=== PATIENT | female | born 1965 | race Caucasian/White ===

== ENCOUNTER 2018-10-20 06:30 | Day surgery (SDC) | payer BC ==
--- OUTSIDE RECORDS SUMMARY | 2018-10-20 06:33 | XMS REPORT ---
:1965 Author Organization [facility] Address [address] [place] [address] Dr. Soriano. [address] [place] [address] Care Team Providers Name Role Phone DR LIZ MCKEON Unavailable Unavailable Problems This patient has no known problems. Allergies, Adverse Reactions, Alerts This patient has no known allergies or adverse reactions. Medications This patient has no known medications. Encounters Start End Encounter Admission Attending Care Care Encounter Date/Time Date/Time Type Type Clinicians Facility Department ID 2017-02-14 2017-02-14 Outpatient [facility] [place] [id number] 04:32:00 08:45:00 LIZ Results Test Description Test Time Test Comments Text Results Atomic Results Result Comments URINE MONOCLONALFB 2017-02-14 05:49:00 Test Item Value Reference Range Comments PREG UR (test code=PGU) NEGATIVE NEGATIVE
[2018-10-20] MEDS ORDERED: Ringers Lactate 1,000 ML IV ONE (07:16)
[2018-10-20] MEDS ORDERED: PROPOFOL 200 MG/20 ML VIAL IV ONE (08:01)
[2018-10-20] MEDS ORDERED: LIDOCAINE 1% MPF 5 ML VIAL ONE (08:01)
[2018-10-20] MEDS ORDERED: PROMETHAZINE 25 MG/ML VIAL ONE (08:50)
[2018-10-20] MEDS ORDERED: MORPHINE 4 MG/ML SYR ONE (08:54)
--- NOTE | 2018-10-20 19:44 | OP ---
Date of Procedure: 10/20/2018 Surgeon: Enrike Esqueda MD Procedure Performed: Esophagogastroduodenoscopy. Indication For Procedure: Iron-deficiency anemia and gastroesophageal reflux disease. Plan For Anesthesia: Monitored anesthesia care. Complexity: Average. Technique: After obtaining informed consent from the patient, explaining risks and complications, wh ich include, but are not limited to bleeding, infection, perforation, and anesthesia complication, pa tient was placed in the left lateral position and sedation was given. From then on, the scope was ad vanced into the mouth and carefully guided up until the 3rd portion of the duodenum. After the compl etion of examination, scope and equipment were withdrawn and procedure terminated in a safe manner. Findings: 1.Esophagus: No gross lesion seen in the upper and mid esophagus. In the distal esophagus, the Z-l ine was irregular, biopsies taken. The GE junction was at around 36 cm. 2.Stomach: Mild patchy erythema seen in the body and antrum. Biopsies were taken. 3.Duodenum: The bulb, second and third portion appeared normal. Small bowel biopsies taken to rule out celiac. Complications: None. Tolerance To Anesthesia: Excellent. Postoperative Diagnosis: Gastritis. Plan: 1.Await pathology results. 2.Follow up in the GI Clinic in 2 weeks. 3.Omeprazole 40 mg once a day. US/MODL Voice ID: [id number] Report ID: [id number]
== END 2018-10-20 09:32 | disposition home or self-care (01) ==
LOC: OR 06:30
PROVIDERS: ATTEND Internal Medicine Gastroenterology
PROC: 0DB88ZX Excision of Small Intestine, Via Natural or Artificial Opening Endoscopic, Diagnostic (ICD-10-PCS; 2018-10-20)
PROC: 0DB78ZX Excision of Stomach, Pylorus, Via Natural or Artificial Opening Endoscopic, Diagnostic (ICD-10-PCS; 2018-10-20)
PROC: 0DB68ZX Excision of Stomach, Via Natural or Artificial Opening Endoscopic, Diagnostic (ICD-10-PCS; 2018-10-20)
PROC: 0DB58ZX Excision of Esophagus, Via Natural or Artificial Opening Endoscopic, Diagnostic (ICD-10-PCS; principal; 2018-10-20 08:00)
DX: K29.50 Unspecified chronic gastritis without bleeding (principal); K21.0 Gastro-esophageal reflux disease with esophagitis; K76.0 Fatty (change of) liver, not elsewhere classified; D50.9 Iron deficiency anemia, unspecified; I10 Essential (primary) hypertension; Z79.899 Other long term (current) drug therapy; E66.9 Obesity, unspecified; Z68.34 Body mass index [BMI] 34.0-34.9, adult
CPT/HCPCS: 43239; 88312; 88305; J2704; J2550

== ENCOUNTER 2019-06-10 08:59 | Day surgery (SDC) | payer BC ==
--- OUTSIDE RECORDS SUMMARY | 2019-06-10 09:02 | XMS REPORT ---
:1965 Author Organization eClinicalWorks Care Team Providers Name Role Phone Radha Best Provider Role Unavailable Allergies No Known Allergies Problems Problem Type Condition Code Onset Dates Condition Status Problem Hypothyroidism E03.9 Active Problem Cough R05 Active Problem Syncope R55 Active Problem Dysuria R30.0 Active Problem Thalassemia D56.9 Active Problem Acute cystitis with hematuria N30.01 Active Problem Acquired hypothyroidism E03.9 Active Problem Mass of left axilla R22.32 Active Problem Bradycardia R00.1 Active Problem Fever R50.9 Active Problem Abscess L02.91 Active Problem Strain of left shoulder, initial S46.912A Active encounter Problem Allergic rhinitis, seasonal J30.2 Active Problem Restless legs syndrome G25.81 Active Problem Foreign body in ear T16.9XXA Active Problem Premature ventricular contraction I49.3 Active Problem Acute tonsillitis J03.90 Active Problem Fatigue R53.83 Active Problem Ganglion cyst M67.40 Active Problem Fatty liver K76.0 Active Assessment Acquired hypothyroidism E03.9 Active Problem Contact dermatitis L25.9 Active Problem Anemia D64.9 Active Medications Medication Code Code Instructions Start End Status Dosage System Date Date Levothyroxine [facility] 37977918843 125 MCG Orally Feb 05, Active 1 tablet Sodium Once a day 2018 on an empty stomach in the morning Results No Known Results Summary Purpose eClinicalWorks Submission
--- OUTSIDE RECORDS SUMMARY | 2019-06-10 09:02 | XMS REPORT ---
[...] M67.40 Active Problem Fatty liver K76.0 Active Problem Contact dermatitis L25.9 Active Problem Anemia D64.9 Active Medications Medication Code Code Instructions Start End Status Dosage System Date Date Levothyroxine [facility] 87026584502 125 MCG Orally Active 1 tablet Sodium Once a day on an empty stomach in the morning Results No Known Results Summary Purpose eClinicalWorks Submission
--- OUTSIDE RECORDS SUMMARY | 2019-06-10 09:02 | XMS REPORT ---
:1965 Author Organization [facility] Address [address] [place] [address] Dr. Soriano [address] [place] [address] Care Team Providers Name Role Phone DR LIZ MCKEON Unavailable Unavailable Problems This patient has no known problems. Allergies, Adverse Reactions, Alerts This patient has no known allergies or adverse reactions. Medications This patient has no known medications. Encounters Start End Encounter Admission Attending Care Care Encounter Date/Time Date/Time Type Type Clinicians Facility Department ID 2017-02-14 2017-02-14 Outpatient [facility] [place] [id number] 04:32:00 08:45:00 LIZ Results Test Description Test Time Test Comments Text Results Atomic Results Result Comments URINE MONOCLONALFB 2017-02-14 05:49:00 Test Item Value Reference Range Comments PREG UR (test code=PGU) NEGATIVE NEGATIVE
--- OUTSIDE RECORDS SUMMARY | 2019-06-10 09:02 | XMS REPORT ---
:1965 Author Organization eClinicalWorks Care Team Providers Name Role Phone Radha Best Provider Role Unavailable Allergies No Known Allergies Problems Problem Type Condition Code Onset Dates Condition Status Problem Thalassemia D56.9 Active Problem Allergic rhinitis, seasonal J30.2 Active Problem Premature ventricular contraction I49.3 Active Problem Mass of left axilla R22.32 Active Problem Strain of left shoulder, initial S46.912A Active encounter Problem Blunt trauma to abdomen, initial S39.91XA Active encounter Problem Ganglion cyst M67.40 Active Problem Restless legs syndrome G25.81 Active Problem Abscess L02.91 Active Problem Contact dermatitis L25.9 Active Problem Bradycardia R00.1 Active Assessment Blunt trauma to abdomen, initial S39.91XA Active encounter Problem Anemia D64.9 Active Problem Hypothyroidism E03.9 Active Problem Fatigue R53.83 Active Problem Syncope R55 Active Problem Fatty liver K76.0 Active Problem Cough R05 Active Medications No Known Medications Results No Known Results Summary Purpose eClinicalWorks Submission
--- OUTSIDE RECORDS SUMMARY | 2019-06-10 09:02 | XMS REPORT ---
[...] Start End Status Dosage System Date Date ProAir RespiClick [facility] 05646587007 108 (90 Base) Active 2 puffs as MCG/ACT needed Inhalation every 6 hrs Benzonatate ND 48845247247 100 MG Orally Active 1 capsule Three times a as needed day Naproxen Sodium [facility] 72805695036 375 MG Oral Active not ER defined Requip ND 11561477235 0.5 MG Orally Active 1 tablet 1 Once a day to 3 hours before bedtime Claritin-D 24 [facility] 16749092734 10-240 MG Active 1 tablet Hour Orally Once a as needed day Fluticasone ND 95821743963 50 MCG/ACT August 24, Active 1 spray in Propionate Nasally Twice a 2019 each day nostril Omeprazole ND 33796556289 40 MG Orally Active 1 capsule Once a day Levothyroxine ND 60848514412 125 MCG Orally Feb 05, Active 1 tablet Sodium Once a day 2018 on an empty stomach in the morning Xyzal [facility] 89820976883 5 MG Orally Active 1 tablet Once a day in the evening Qvar [facility] 71158509144 40 MCG/ACT Active 1 puff Inhalation Twice a day Vitamin C [facility] 95492687217 1000 MG Orally Active 1 tablet Once a day Lidocaine [facility] 15172032813 5 % External Active not defined Results No Known Results Summary Purpose eClinicalWorks Submission
--- OUTSIDE RECORDS SUMMARY | 2019-06-10 09:02 | XMS REPORT ---
:1965 Author Organization eClinicalWorks Care Team Providers Name Role Phone Radha Best Provider Role Unavailable Allergies, Adverse Reactions, Alerts Substance Reaction Event Type PCN rash Drug Allergy Bactrim DS rash Drug Allergy Problems Problem Type Condition Code Onset Dates Condition Status Problem Thalassemia D56.9 Active Problem Allergic rhinitis, seasonal J30.2 Active Problem Premature ventricular contraction I49.3 Active Problem Mass of left axilla R22.32 Active Assessment Cough R05 Active Problem Strain of left shoulder, initial S46.912A Active encounter Problem Blunt trauma to abdomen, initial S39.91XA Active encounter Problem Ganglion cyst M67.40 Active Problem Restless legs syndrome G25.81 Active Problem Abscess L02.91 Active Problem Contact dermatitis L25.9 Active Problem Bradycardia R00.1 Active Assessment Hypothyroidism E03.9 Active Assessment Blunt trauma to abdomen, initial S39.91XA Active encounter Problem Anemia D64.9 Active Problem Hypothyroidism E03.9 Active Problem Fatigue R53.83 Active Problem Syncope R55 Active Problem Fatty liver K76.0 Active Problem Cough R05 Active Medications Medication Code Code Instructions Start End Status Dosage System Date Date Levothyroxine [facility] 69568411697 125 MCG Orally Feb 05, Active 1 tablet Sodium Once a day 2018 on an empty stomach in the morning Omeprazole [facility] 59194858487 40 MG Orally Active 1 capsule Once a day Vitamin C [facility] 39304754461 1000 MG Orally Active 1 tablet Once a day Benzonatate ND 37817540150 100 MG Orally Active 1 capsule Three times a as needed day ProAir RespiClick [facility] 40590766448 108 (90 Base) Active 2 puffs as MCG/ACT needed Inhalation every 6 hrs Fluticasone ND 92658927452 50 MCG/ACT August 24, Active 1 spray in Propionate Nasally Twice a 2018 each day nostril Claritin-D 24 [facility] 91016273022 10-240 MG Active 1 tablet Hour Orally Once a as needed day Results Name Result Date Reference Range Unit Abnormality Flag Chest Pa And Lat (2 Views) Summary Purpose eClinicalWorks Submission
--- OUTSIDE RECORDS SUMMARY | 2019-06-10 09:02 | XMS REPORT ---
[...] L25.9 Active Problem Anemia D64.9 Active Medications No Known Medications Results No Known Results Summary Purpose eClinicalWorks Submission
[2019-06-10 09:32] LABS: Absolute Lymphocytes (CBC) 2.8 K/uL (0.7-4.9); Basophils % 0.9 % (0-1.3); Hematocrit 38.6 % (36.0-45.0); Lymphocytes % 43.3 % (15.3-44.8); MPV 11.3 fL (7.6-11.3); RBC Red Blood Cell Count 6.14 M/uL (3.86-4.86)
[2019-06-10] MEDS ORDERED: CIPROFLOXACIN 400mg IV 400 MG/200 ML BAG IV ONE (09:39)
[2019-06-10] MEDS ORDERED: Ringers Lactate 1,000 ML IV ONE (09:39)
[2019-06-10 09:57] LABS: Potassium 4.6 mmol/L (3.5-5.1)
[2019-06-10] MEDS ORDERED: propofoL 200 MG/20 ML VIAL IV ONE (10:11)
[2019-06-10] MEDS ORDERED: MIDAZOLAM HCL 2 MG/2 ML INJ ONE (10:12)
[2019-06-10] MEDS ORDERED: FENTANYL CITR 100 MCG/2 ML ONE (10:12)
[2019-06-10] MEDS ORDERED: LIDOCAINE 2% MPF 5 ML VIAL ONE (10:13)
[2019-06-10] MEDS ORDERED: ONDANSETRON 4 MG/2 ML VIAL ONE ×2 (10:17→12:36)
[2019-06-10 11:44] LABS: Anisocytosis 2+; Blood Morphology Comment NOTED (NOT SEEN); Hypochromasia 2+; Platelet Estimate ADEQ; Poikilocytosis 1+; Urine White Blood Cell Casts OK
[2019-06-10] MEDS ORDERED: MEPERIDINE HCL 25 MG/0.5 ML ONE (12:33)
--- NOTE | 2019-06-10 12:43 | P.BOP ---
Preoperative diagnosis: axillary abscess Postoperative diagnosis: same Primary procedure: Incision and drainage of complex left axillary abscess 4x4x3 cm Estimated blood loss: <10cc Specimen: pus Findings: as above Anesthesia: General Complications: None Drain(s): Other (wet to dry NS) Transferred to: Recovery Room Condition: Good
[2019-06-10] MEDS ORDERED: CODEINE 30MG/APAP 300MG TAB PO ONE (13:00)
[2019-06-10] MEDS ORDERED: CODEINE 30MG/APAP 300MG TAB ONE (13:06)
[2019-06-10 13:50] VITALS: TEMP 97.6
[2019-06-10 13:51] VITALS: BP 102/73; O2SAT 94
--- NOTE | 2019-06-10 20:50 | OP ---
Date of Procedure: 06/10/2019 Surgeon: Jason Hebert MD Preoperative Diagnosis: Axillary abscess, cellulitis, complex, tender. Postoperative Diagnosis: Axillary abscess, cellulitis, complex, tender. Procedure: Incision and drainage of complex left axillary abscess 4 x 4 x 3 cm. Estimated Blood Loss: Less than 10 mL. Specimen: Pus and necrotic tissue. Findings: Patient has complex abscess in the left axillary area. Even on antibiotics, recently gett ing worse, erythema, tender, fluctuance present. Patient is so tender, cannot do it under local anes thetic and is deep, so she was explained the need for incision and drainage for complex axillary absc ess with benefits, alternatives, and risks including but not limited to infection, bleeding, damage t o adjacent structures, anesthesia complications, CT, even . She also understands this may not r elieve symptoms. She might need more than 1 surgical intervention. She understood and signed a cons ent. She understands the need for wet-to-dry dressing after that. We had a national emergent situat ion and she has the option of home health agency. She is going to try to find a family member to min imize the amount of contact with any other personnel. She understands she is going to be on the vent ilator. There is a risk of coronavirus going around, but in her case, it is tender too much and is c onsidered an emergency, so she understands the risks. She signed a consent. Description Of Procedure: Patient was brought to the operating room, placed in supine position. Ane sthesia was done without complication. The left axillary area was prepped and draped in sterile [facility] ion. A time-out was called. Local anesthesia was applied. Some necrotic tissue present and had to be removed. This allowed us to go into a deeper abscess. That had multiple loculations present. Fr ank pus was obtained and cultured. All loculations were explored and opened. Local anesthesia was a pplied. Irrigation was done. Hemostasis was obtained and the area was packed with wet-to-dry dressi ng. Patient tolerated the procedure well. Patient was sent to Recovery in stable condition. KANDACE/MODL Voice ID: [id number] Report ID: [id number]
--- NOTE | 2019-06-10 20:53 | DS ---
Date of Discharge: 06/10/2019 Diagnosis: Left complex axillary abscess. Procedure: Incision and drainage of left complex axillary abscess. Disposition: Home. Activity: As tolerated. No heavy lifting. Discharge Instructions: Follow up in my office in 1 week. Call for appointment at [phone]. Keep t he area dry until tomorrow. Then, she will pack the area with wet-to-dry dressing and normal saline. She was instructed in my office in details how to do so. We are going to provide Tylenol No. 3 for pain and normal saline. She is already on antibiotics, clindamycin, provided by the primary doctor. She understood to follow up in a week in my office. We understand it is a national emergency and m any things can change, but she was advised to still call the office in a week for guidelines on how w e are going to follow her up. POPPY Voice ID: [id number] Report ID: [id number]
== END 2019-06-10 13:55 | disposition home or self-care (01) ==
LOC: OR 08:59
PROVIDERS: ATTEND Surgery
PROC: 0J960ZZ Drainage of Chest Subcutaneous Tissue and Fascia, Open Approach (ICD-10-PCS; principal; 2019-06-10 10:15)
DX: L72.0 Epidermal cyst (principal); L03.319 Cellulitis of trunk, unspecified; I96 Gangrene, not elsewhere classified; E07.9 Disorder of thyroid, unspecified; Z79.899 Other long term (current) drug therapy
CPT/HCPCS: 87070; 85025; 80048; 36415; 87205 ×2; 88304; 87075; 10061; J2704; J2250; J3010; J2175; J7120; J2405 ×2; J0744; 88305

== ENCOUNTER 2019-07-01 05:05 | Emergency (ER) | payer BC ==
--- OUTSIDE RECORDS SUMMARY | 2019-07-01 05:08 | XMS REPORT ---
:1965 Author Organization eClinicalWorks Care Team Providers Name Role Phone Radha Best Provider Role Unavailable Allergies No Known Allergies Problems Problem Type Condition Code Onset Dates Condition Statu s Problem Hypothyroidism E03.9 Active Problem Cough R05 Active Problem Syncope R55 Active Problem Dysuria R30.0 Active Problem Thalassemia D56.9 Active Problem Acute cystitis with hematuria N30.01 Active Problem Acquired hypothyroidism E03.9 Acti ve Problem Mass of left axilla R22.32 Active Problem Bradycardia R00.1 Active Problem Fever R50.9 Active Problem Abscess L02.91 Active Problem Strain of left shoulder, initial S46.912A Active encounter Problem Allergic rhinitis, seasonal J30.2 Active Problem Restless legs syndrome G25.81 Activ e Problem Foreign body in ear T16.9XXA Active Problem Premature ventricular contraction I49.3 Active Problem Acute tonsillitis J03.90 Active Problem Fatigue R53.83 Active Problem Ganglion cyst M67.40 Active Problem Fatty liver K76.0 Active Assessment Acquired hypothyroidism E03.9 Acti ve Problem Contact dermatitis L25.9 Active Problem Anemia D64.9 Active Medications Medication Code Code Instructions Start End Status Dosage System Date Date Levothyroxine [facility] 88984946463 125 MCG Orally Feb 05, Active 1 tablet Sodium Once a day 2018 on an empty stomach in the morning Results No Known Results Summary Purpose eClinicalWorks Submission
--- OUTSIDE RECORDS SUMMARY | 2019-07-01 05:08 | XMS REPORT ---
[...] End Status Dosage System Date Date Levothyroxine [facility] 94643650049 125 MCG Orally Active 1 tablet Sodium Once a day on an empty stomach in the morning Results No Known Results Summary Purpose eClinicalWorks Submission
--- OUTSIDE RECORDS SUMMARY | 2019-07-01 05:08 | XMS REPORT ---
:1965 Author Organization [facility] Address [address] [place] [address] Dr. Soriano. [address] [place] [address] Care Team Providers Name Role Phone DR LINDA Unavailable Unavailable Problems This patient has no known problems. Allergies, Adverse Reactions, Alerts This patient has no known allergies or adverse reactions. Medications This patient has no known medications. Encounters Start End Encounter Admission Attending Care Care Encounter Date/Time Date/Time Type Type Clinicians Facility Department ID 2017-02-14 2017-02-14 [address] [facility] [facility] [place] [id number] 04:32:00 08:45:00 LIZ Results Test Description Test Time Test Comments Text Results Atomic Results Result Comments URINE MONOCLONALFB 2017-02-14 05:49:00 Test Item Value Reference Range Comments PREG UR (test code = PGU) NEGATIVE NEGATIVE
--- OUTSIDE RECORDS SUMMARY | 2019-07-01 05:08 | XMS REPORT ---
[...] Status Dosage System Date Date ProAir RespiClick [facility] 64229006333 108 (90 Base) Acti ve 2 puffs as MCG/ACT needed Inhalation every 6 hrs Benzonatate [facility] 15100576681 100 MG Orally Active 1 capsule Three times a as needed day Naproxen Sodium [facility] 74545859223 375 MG Oral Active not ER defined Requip [facility] 80782317028 0.5 MG Orally Active 1 tabl et 1 Once a day to 3 hours before bedtime Claritin-D 24 [facility] 24281983523 10-240 MG Active 1 ta blet Hour Orally Once a as needed day Fluticasone ND 90783886642 50 MCG/ACT August 24, Active 1 sp ray in Propionate Nasally Twice a 2019 each day nostril Omeprazole [facility] 35313192736 40 MG Orally Active 1 ca psule Once a day Levothyroxine NDC 17609963965 125 MCG Orally Feb 05, Active 1 tablet Sodium Once a day 2018 on an empty stomach in the morning Xyzal [facility] 68867081075 5 MG Orally Active 1 tablet Once a day in the evening Qvar [facility] 21109704410 40 MCG/ACT Active 1 puff Inhalation Twice a day Vitamin C [facility] 48262813325 1000 MG Orally Active 1 t ablet Once a day Lidocaine [facility] 13183542539 5 % External Active not defined Results No Known Results Summary Purpose eClinicalWorks Submission
--- OUTSIDE RECORDS SUMMARY | 2019-07-01 05:09 | XMS REPORT ---
:1965 Author Organization eClinicalWorks Care Team Providers Name Role Phone Radha Best Provider Role Unavailable Allergies, Adverse Reactions, Alerts Substance Reaction Event Type PCN rash Drug Allergy Bactrim DS rash Drug Allergy Problems Problem Type Condition Code Onset Dates Condition Statu s Problem Allergic rhinitis, seasonal J30.2 Active Problem Ganglion cyst M67.40 Active Problem Restless legs syndrome G25.81 Activ e Problem Sprain of low back, initial S33.5XXA Active encounter Assessment Sprain of low back, initial S33.5XXA Active encounter Problem Blunt trauma to abdomen, initial S39.91XA Active encounter Assessment Abscess of axilla, left L02.412 Acti ve Problem Abscess of axilla, left L02.412 Acti ve Problem Abscess L02.91 Active Problem Contact dermatitis L25.9 Active Problem Mass of left axilla R22.32 Active Problem Strain of left shoulder, initial S46.912A Active encounter Problem Bradycardia R00.1 Active Problem Fatigue R53.83 Active Problem Thalassemia D56.9 Active Problem Hypothyroidism E03.9 Active Problem Syncope R55 Active Problem Fatty liver K76.0 Active Problem Cough R05 Active Problem Anemia D64.9 Active Problem Premature ventricular contraction I49.3 Active Medications Medication Code Code Instructions Start End Date Status Dosage System Date ProAir [facility] 71843246223 108 (90 Base) Active 2 puff s as RespiClick MCG/ACT needed Inhalation every 6 hrs Fluticasone ND 77322101434 50 MCG/ACT August 24, Active 1 sp ray in Propionate Nasally Twice a 2019 each day nostril Claritin-D 24 ND 16516157120 10-240 MG Active 1 ta blet Hour Orally Once a as needed day Methocarbamol ND 65775220054 750 MG Orally June Active 1 tablet every 6 hrs 2019 Cipro ND 84340034271 500 MG Orally June Active 1 tabl et every 12 hrs [address] [facility] 36920687436 40 MG Orally Active 1 ca psule Once a day Levothyroxine [facility] 32263994767 125 MCG Orally Feb 05, Active 1 tablet Sodium Once a day 2018 on an empty stomach in the morning Vitamin C [facility] 00204076790 1000 MG Orally Active 1 t ablet Once a day PredniSONE [facility] 81817360052 10 MG Orally June Active 1 ta blet Once a day 2019 Results No Known Results Summary Purpose eClinicalWorks Submission
--- OUTSIDE RECORDS SUMMARY | 2019-07-01 05:09 | XMS REPORT ---
:1965 Author Organization eClinicalWorks Care Team Providers Name Role Phone Radha Best Provider Role Unavailable Allergies, Adverse Reactions, Alerts Substance Reaction Event Type PCN rash Drug Allergy Bactrim DS rash Drug Allergy Problems Problem Type Condition Code Onset Dates Condition Statu s Problem Thalassemia D56.9 Active Problem Allergic rhinitis, seasonal J30.2 Active Problem Premature ventricular contraction I49.3 Active Problem Mass of left axilla R22.32 Active Assessment Cough R05 Active Problem Strain of left shoulder, initial S46.912A Active encounter Problem Blunt trauma to abdomen, initial S39.91XA Active encounter Problem Ganglion cyst M67.40 Active Problem Restless legs syndrome G25.81 Activ e Problem Abscess L02.91 Active Problem Contact dermatitis [...] End Status Dosage System Date Date Levothyroxine [facility] 76623275293 125 MCG Orally Feb 05, Active 1 tablet Sodium Once a day 2018 on an empty stomach in the morning Omeprazole ND 47609132734 40 MG Orally Active 1 ca psule Once a day Vitamin C ND 98615012149 1000 MG Orally Active 1 t ablet Once a day Benzonatate ND 02130057872 100 MG Orally Active 1 capsule Three times a as needed day ProAir RespiClick [facility] 22328820718 108 (90 Base) Acti ve 2 puffs as MCG/ACT needed Inhalation every 6 hrs Fluticasone ND 67634810773 50 MCG/ACT August 24, Active 1 sp ray in Propionate Nasally Twice a 2018 each day nostril Claritin-D 24 ND 31709756067 10-240 MG Active 1 ta blet Hour Orally Once a as needed day Results Name Result Date Reference Range Unit Abnormali ty Flag Chest Pa And Lat (2 Views) Summary Purpose eClinicalWorks Submission
[2019-07-01 06:15] LABS: Urine Blood TRACE (NEG); Urine Glucose NEGATIVE (NEG); Urine Protein NEGATIVE (NEG); Urine Specific Gravity 1.015 (1.005-1.030); Urine pH 5.5 (5.0-7.0)
[2019-07-01] MEDS ORDERED: KETOROLAC 30 MG/ML INJ ONE (06:21)
[2019-07-01] MEDS ORDERED: MORPHINE 4 MG/ML SYR ONE (06:21)
[2019-07-01] MEDS ORDERED: NA CHLORIDE 0.9% 1,000 ML ONE (06:21)
[2019-07-01] MEDS ORDERED: ONDANSETRON 4 MG/2 ML VIAL ONE (06:21)
[2019-07-01 06:35] LABS: Absolute Lymphocytes (CBC) 3.9 K/uL (0.7-4.9); Basophils % 0.6 % (0-1.3); Hematocrit 38.2 % (36.0-45.0); Lymphocytes % 40.3 % (15.3-44.8); MPV 11.5 fL (7.6-11.3); RBC Red Blood Cell Count 6.08 M/uL (3.86-4.86)
[2019-07-01 06:51] LABS: ALT/SGPT 89 U/L (12-78); AST/SGOT 54 U/L (15-37); Albumin 3.6 g/dL (3.4-5.0); Alkaline Phosphatase 121 U/L (45-117); BUN Blood Urea Nitrogen 13 mg/dL (7-18); Bicarbonate 23 mmol/L (21-32); Bilirubin Total 0.5 mg/dL (0.2-1.0); Glucose Level 91 mg/dL (74-106); Lipase 101 U/L (73-393); Potassium 3.9 mmol/L (3.5-5.1); Sodium Level 143 mmol/L (136-145)
--- NOTE | 2019-07-01 07:21 | RAD REPORT ---
EXAM DESCRIPTION: CTAbdomen Pelvis W Contrast - 07/01/2019 7:03 am CLINICAL HISTORY: Abdominal pain. ABD PAIN COMPARISON: No comparisons TECHNIQUE: Biphasic CT imaging of the abdomen and pelvis was performed with 100 ml non-ionic IV cont rast. All CT scans are performed using dose optimization technique as appropriate and may include automated exposure control or mA/KV adjustment according to patient size. FINDINGS: The lung bases are clear.Small hiatal hernia. Mild fatty liver. Cholecystectomy clips noted. The spleen, pancreas, adrenal glands and kidneys show no acute process. Moderate fat containing umbilical hernia. No bowel obstruction, free air, free fluid or abscess. Mild sigmoid diverticulosis coli without diver ticulitis. The appendix is normal. No evidence of significant lymphadenopathy. No suspicious bony findings. IMPRESSION: No acute intra-abdominal or pelvic finding. Fatty liver.
--- NOTE | 2019-07-01 07:43 | ER ---
Nurse's Notes [facility] Name: Krysten Love Age: 54 yrs Sex: Female : 1965 Arrival Date: 07/01/2019 Time: 05:09 Bed 15 Private MD: Diagnosis: Low back pain;Lower abdominal pain, unspecified Presentation: 06/30 05:15 Chief complaint: Patient states: I have been having lower back pain for the past 2 jb4 weeks now it is radiating to my right lower stomach. Coronavirus screen: Proceed with normal triage. Ebola Screen: No symptoms or risks identified at this time. Initial Sepsis Screen: Does the patient meet any 2 criteria? No. Patient's initial sepsis screen is negative. Does the patient have a suspected source of infection? No. Patient's initial sepsis screen is negative. Risk Assessment: Do you want to hurt yourself or someone else? Patient reports no desire to harm self or others. Onset of symptoms was June 17, 2019. Transition of care: patient was not received from another setting of care. 05:15 Method Of Arrival: Wheelchair jb4 05:15 Acuity: SAMIR 3 jb4 Historical: - Allergies: 05:15 Penicillins; jb4 - Home Meds: 05:15 prednisone 10 mg Oral tab once daily [Active]; ibuprofen 800 mg Oral tab 1 tab 3 times jb4 per day [Active]; methocarbamol 750 mg Oral tab 1 tab every 6 hours [Active]; Cipro 500 mg Oral tab 1 tab every 12 hours [Active]; Tylenol-Codeine #3 300-30 mg oral tab 1 tab every 4 hours [Active]; - PMHx: 05:15 None; jb4 - PSHx: 05:15 right foot; Cholecystectomy; Tonsillectomy; jb4 - Immunization history:: Adult Immunizations up to date. - Social history:: Smoking status: Patient denies any tobacco usage or history of. Patient/guardian denies using alcohol, street drugs. - Family history:: not pertinent. Screenin:15 Abuse screen: Denies threats or abuse. Nutritional screening: No deficits noted. jb4 Tuberculosis screening: No symptoms or risk factors identified. Fall Risk None identified. Assessment: 05:15 General: Appears in no apparent distress. uncomfortable, Behavior is calm, cooperative, jb4 appropriate for age. Pain: Complains of pain in right low back Pain radiates to right lower quadrant Pain currently is 10 out of 10 on a pain scale. Quality of pain is described as sharp, Aggravated by repositioning. Neuro: Level of Consciousness is awake, alert, obeys commands, Oriented to person, place, time, situation. Cardiovascular: Patient's skin is warm and dry. Respiratory: Airway is patent Respiratory effort is even, unlabored, Respiratory pattern is regular, symmetrical. GI: Reports lower abdominal pain. : No signs and/or symptoms were reported regarding the genitourinary system. EENT: No signs and/or symptoms were reported regarding the EENT system. Derm: Skin is intact, Skin is pink, warm \T\ dry. Musculoskeletal: Circulation, motion, and sensation intact. Range of motion: intact in all extremities. 06:42 Reassessment: Patient appears in no apparent distress at this time. Patient and/or jb4 family updated on plan of care and expected duration. Pain level reassessed. Patient is alert, oriented x 3, equal unlabored respirations, skin warm/dry/pink. 08:05 Reassessment: Patient appears in no apparent distress at this time. Patient and/or ph family updated on plan of care and expected duration. Pain level reassessed. Patient is alert, oriented x 3, equal unlabored respirations, skin warm/dry/pink. D/C papers signed by pt, awaiting ride home from daughter. Vital Signs: 05:15 BP 145 / 81; Pulse 72; Resp 18; Temp 98.7(O); Pulse Ox 98% on R/A; Weight 88.9 kg (R); jb4 Height 5 ft. 3 in. (160.02 cm) (R); Pain 10/10; 06:40 BP 156 / 86; Pulse 76; Resp 16; Pulse Ox 96% on R/A; jb4 08:06 BP 147 / 86; Pulse 74; Resp 18; Temp 98.0; Pulse Ox 99% on R/A; ph 05:15 Body Mass Index 34.72 (88.90 kg, 160.02 cm) jb4 ED Course: 05:09 Patient arrived in ED. cl3 05:15 Arm band placed on right wrist. jb4 05:15 Patient has correct armband on for positive identification. Bed in low position. Call jb4 light in reach. Side rails up X 1. Pulse ox on. NIBP on. 05:22 Evan Wood MD is Attending Physician. rayray 05:24 Ugo Andre, YADIRA is Primary Nurse. jb4 05:27 Triage completed. jb4 06:00 Urine collected: clean catch specimen, clear. 06:31 Missed attempt(s): 20 gauge in left antecubital area. Inserted saline lock: 20 gauge in lp1 left antecubital area, using aseptic technique. Blood collected. 07:03 CT Abd/Pelvis - IV Contrast Only In Process Unspecified. EDMS 07:08 Zhang Avila PA is PHCP. [facility] 07:58 No provider procedures requiring assistance completed. IV discontinued, intact, ph bleeding controlled, No redness/swelling at site. Pressure dressing applied. Administered Medications: 06:33 Drug: Zofran (Ondansetron) 4 mg Route: IVP; Site: left antecubital; [facility] 08:00 Follow up: Response: No adverse reaction ph 06:35 Drug: NS 0.9% 1000 ml Route: IV; Rate: 1 bolus; Site: left antecubital; 4 07:59 Follow up: Response: No adverse reaction; IV Status: Completed infusion; IV Intake: ph 500ml 06:36 Drug: TORadol 30 mg Route: IVP; Site: left antecubital; 4 07:59 Follow up: Response: No adverse reaction ph 06:37 Drug: morphine 4 mg {Note: Rass score 0.} Route: IVP; Site: left antecubital; [facility] 08:00 Follow up: Response: No adverse reaction ph 08:14 Drug: Valium 5 mg Route: IM; Site: left deltoid; ph 08:15 Follow up: Response: No adverse reaction ph Intake: 07:59 IV: 500ml; Total: 500ml. ph Outcome: 07:42 Discharge ordered by . [facility] 07:58 Discharged to home ambulatory. ph 07:58 Condition: good 07:58 Discharge instructions given to patient. 08:15 Patient left the ED. ph Signatures: Dispatcher [employer] EDMS Jose Guadalupe Ramirez, Evan Sinclair RN, MD MD cha Mickail, Joel, PA PA [facility] Collette Dontao RN RN lp1 Nelly Sepulveda RN RN Ugo Andre YADIRA RN jb4 Sil Brody cl3
--- NOTE | 2019-07-01 07:43 | EDPHYS ---
Physician Documentation [facility] Name: Krysten Love Age: 54 yrs Sex: Female : 1965 Arrival Date: 07/01/2019 Time: 05:09 Bed 15 Private MD: Evan Spence HPI: 06/30 05:41 This 54 yrs old Female presents to ER via Wheelchair with complaints of rayray Abdominal Pain. 05:41 The patient presents with abdominal pain in the upper abdomen, in the lower abdomen, rayray abdominal distention in the right upper quadrant, in the right lower quadrant. Onset: The symptoms/episode began/occurred 2 day(s) ago. The patient complains of pain in the right mid back and right low back. The pain radiates to the right mid back and right low back. Onset: The symptoms/episode began/occurred 2 day(s) ago. Modifying factors: The symptoms are alleviated by remaining still, the symptoms are aggravated by nothing. Associated signs and symptoms: The patient has no apparent associated signs or symptoms. The symptoms radiate to posterior aspect of right lateral abdomen, anterior aspect of right lateral abdomen, right upper quadrant and right lower quadrant. Associated signs and symptoms: none. Historical: - Allergies: 05:15 Penicillins; jb4 - Home Meds: 05:15 prednisone 10 mg Oral tab once daily [Active]; ibuprofen 800 mg Oral tab 1 tab 3 times jb4 per day [Active]; methocarbamol 750 mg Oral tab 1 tab every 6 hours [Active]; Cipro 500 mg Oral tab 1 tab every 12 hours [Active]; Tylenol-Codeine #3 300-30 mg oral tab 1 tab every 4 hours [Active]; - PMHx: 05:15 None; jb4 - PSHx: 05:15 right foot; Cholecystectomy; Tonsillectomy; jb4 - Immunization history:: Adult Immunizations up to date. - Social history:: Smoking status: Patient denies any tobacco usage or history of. Patient/guardian denies using alcohol, street drugs. - Family history:: not pertinent. ROS: 05:41 Constitutional: Negative for fever, chills, and weight loss, Eyes: Negative for injury, rayray pain, redness, and discharge, ENT: Negative for injury, pain, and discharge, Neck: Negative for injury, pain, and swelling, Cardiovascular: Negative for chest pain, palpitations, and edema, Respiratory: Negative for shortness of breath, cough, wheezing, and pleuritic chest pain, Back: Negative for injury and pain, : Negative for injury, bleeding, discharge, and swelling, MS/Extremity: Negative for injury and deformity, Skin: Negative for injury, rash, and discoloration, Neuro: Negative for headache, weakness, numbness, tingling, and seizure, Psych: Negative for depression, anxiety, suicide ideation, homicidal ideation, and hallucinations, Allergy/Immunology: Negative for hives, rash, and allergies, Endocrine: Negative for neck swelling, polydipsia, polyuria, polyphagia, and marked weight changes, Hematologic/Lymphatic: Negative for swollen nodes, abnormal bleeding, and unusual bruising. 05:41 Abdomen/GI: Positive for abdominal pain, abdominal distension, of the posterior aspect of right lateral abdomen, anterior aspect of right lateral abdomen, right upper quadrant and right lower quadrant. Exam: 05:41 Constitutional: This is a well developed, well nourished patient who is awake, alert, rayray and in no acute distress. Head/Face: Normocephalic, atraumatic. Eyes: Pupils equal round and reactive to light, extra-ocular motions intact. Lids and lashes normal. Conjunctiva and sclera are non-icteric and not injected. Cornea within normal limits. Periorbital areas with no swelling, redness, or edema. ENT: Nares patent. No nasal discharge, no septal abnormalities noted. Tympanic membranes are normal and external auditory canals are clear. Oropharynx with no redness, swelling, or masses, exudates, or evidence of obstruction, uvula midline. Mucous membranes moist. Neck: Trachea midline, no thyromegaly or masses palpated, and no cervical lymphadenopathy. Supple, full range of motion without nuchal rigidity, or vertebral point tenderness. No Meningismus. Chest/axilla: Normal chest wall appearance and motion. Nontender with no deformity. No lesions are appreciated. Cardiovascular: Regular rate and rhythm with a normal S1 and S2. No gallops, murmurs, or rubs. Normal PMI, no JVD. No pulse deficits. Respiratory: Lungs have equal breath sounds bilaterally, clear to auscultation and percussion. No rales, rhonchi or wheezes noted. No increased work of breathing, no retractions or nasal flaring. Back: No spinal tenderness. No costovertebral tenderness. Full range of motion. Female : Normal external genitalia. Skin: Warm, dry with normal turgor. Normal color with no rashes, no lesions, and no evidence of cellulitis. MS/ Extremity: Pulses equal, no cyanosis. Neurovascular intact. Full, normal range of motion. Neuro: Awake and alert, GCS 15, oriented to person, place, time, and situation. Cranial nerves II-XII grossly intact. Motor strength 5/5 in all extremities. Sensory grossly intact. Cerebellar exam normal. Normal gait. 05:41 Abdomen/GI: Inspection: distension, Bowel sounds: normal, Palpation: moderate abdominal tenderness, in the posterior aspect of right lateral abdomen, anterior aspect of right lateral abdomen, right upper quadrant and right lower quadrant, Liver: no appreciated palpable abnormalities, Hernia: not appreciated. Vital Signs: 05:15 BP 145 / 81; Pulse 72; Resp 18; Temp 98.7(O); Pulse Ox 98% on R/A; Weight 88.9 kg (R); jb4 Height 5 ft. 3 in. (160.02 cm) (R); Pain 10/10; 06:40 BP 156 / 86; Pulse 76; Resp 16; Pulse Ox 96% on R/A; jb4 08:06 BP 147 / 86; Pulse 74; Resp 18; Temp 98.0; Pulse Ox 99% on R/A; ph 05:15 Body Mass Index 34.72 (88.90 kg, 160.02 cm) jb4 MDM: 05:22 Patient medically screened. [facility] 05:41 Data reviewed: vital signs, nurses notes, lab test result(s), radiologic studies, CT rayray scan. 06:12 ED course: 1 day hx of right sided abd pain, radiates to right flank no hx of stones. rayray 07:40 ED course: Pain has decreased in the ED. Patient states she strained her back approx 2 jmm weeks ago and then developed abdominal pain this past Friday. Pain is worsened with movement. CT is negative. Pain appears most likely musculoskeletal. Patient is advised to follow up with PCP for reevaluation and otherwise advised to follow up with GI. Patient is given strict return precautions. Patient understood and agrees with the plan of care. . 06/30 05:40 Order name: CBC with Diff rayray 06/30 05:40 Order name: Comprehensive Metabolic Panel; Complete Time: 07:00 [facility] 06/30 05:40 Order name: Lipase; Complete Time: 07:00 [facility] 06/30 05:40 Order name: Urine Culture [facility] 06/30 05:40 Order name: CT Abd/Pelvis - IV Contrast Only; Complete Time: 07:23 [facility] 06/30 05:57 Order name: Urine Dipstick--Ancillary (enter results); Complete Time: 06:39 mt 06/30 05:40 Order name: Urine Dipstick-Ancillary (obtain specimen); Complete Time: 06:40 [facility] 06/30 06:20 Order name: Labs - recollect needed; Complete Time: 06:43 mt Administered Medications: 06:33 Drug: Zofran (Ondansetron) 4 mg Route: IVP; Site: left antecubital; 4 08:00 Follow up: Response: No adverse reaction ph 06:35 Drug: NS 0.9% 1000 ml Route: IV; Rate: 1 bolus; Site: left antecubital; jb4 07:59 Follow up: Response: No adverse reaction; IV Status: Completed infusion; IV Intake: ph 500ml 06:36 Drug: TORadol 30 mg Route: IVP; Site: left antecubital; jb4 07:59 Follow up: Response: No adverse reaction ph 06:37 Drug: morphine 4 mg {Note: Rass score 0.} Route: IVP; Site: left antecubital; jb4 08:00 Follow up: Response: No adverse reaction ph 08:14 Drug: Valium 5 mg Route: IM; Site: left deltoid; ph 08:15 Follow up: Response: No adverse reaction ph Disposition: 11:03 Co-signature as Attending Physician, Evan Wood MD I agree with the assessment and [facility] plan of care. Disposition: 07/01/19 07:42 Discharged to Home. Impression: Low back pain, Lower abdominal pain, unspecified. - Condition is Stable. - Discharge Instructions: Abdominal Pain, Adult, Back Pain, Adult. - Prescriptions for orphenadrine citrate 100 mg Oral Tablet Sustained Release - take 1 tablet by ORAL route 2 times per day As needed; 20 tablet. - Medication Reconciliation Form, Thank You Letter, Antibiotic Education, Prescription Opioid Use form. - Follow up: Private Physician; When: 2 - 3 days; Reason: Recheck today's complaints, Continuance of care, Re-evaluation by your physician. Signatures: Dispatcher [employer] EDEvan Ribeiro MD MD cha Mickail, Joel, PA PA jmm Hall, Patricia, RN RN Ugo Tovar RN RN jbStephanie Capellan fl Corrections: (The following items were deleted from the chart) 08:15 07:42 07/01/2019 07:42 Discharged to Home. Impression: Low back pain; Lower abdominal ph pain, unspecified. Condition is Stable. Forms are Medication Reconciliation Form, Thank You Letter, Antibiotic Education, Prescription Opioid Use. Follow up: Private Physician; When: 2 - 3 days; Reason: Recheck today's complaints, Continuance of care, Re-evaluation by your physician. berny
[2019-07-01] MEDS ORDERED: DIAZEPAM 10 MG/2 ML INJ SYRINGE ONE (08:15)
[2019-07-01 08:25] VITALS: BP 147/86; TEMP 98; O2SAT 99
[2019-07-01 08:27] LABS: Anisocytosis 1+; Blood Morphology Comment NOTED (NOT SEEN); Platelet Estimate ADEQ; Platelets, Giant FEW
[2019-07-01 08:28] LABS: Hypochromasia 2+
== END 2019-07-01 08:15 | disposition home or self-care (01) ==
LOC: ER 05:05
DX: R10.30 Lower abdominal pain, unspecified (principal); Z88.0 Allergy status to penicillin
CPT/HCPCS: 96361; 87088; 85025; 87086; 36415; 81003; 83690; 80053; 74177; 96375; 96372; 96374; 99284; Q9967; J3360; J7030; J2405

== ENCOUNTER 2019-07-05 09:07 | Emergency (ER) | payer BC ==
--- OUTSIDE RECORDS SUMMARY | 2019-07-05 09:09 | XMS REPORT ---
:1965 Author Organization [facility] t Address [address] [place] [address] Care Team Providers Name Role Phone DR LINDA Unavailable Unavailable Problems Condition Condition Condition Status Onset Resolution Last Treatin g Comments Name Details Category Date Date Treatment Clinician Date Anemia Anemia Problem Active Syncope Syncope Problem Active Hypothyroid Hypothyroid Problem Active ism ism Abscess Abscess Problem Active Cough Cough Problem Active Strain of Strain of Problem Active left left shoulder, shoulder, initial initial encounter encounter Bradycardia Bradycardia Problem Active Premature Premature Problem Active ventricular ventricular contraction contraction Allergic Allergic Problem Active rhinitis, rhinitis, seasonal seasonal Thalassemia Thalassemia Problem Active Contact Contact Problem Active dermatitis dermatitis Restless Restless Problem Active legs legs syndrome syndrome Fatigue Fatigue Problem Active Ganglion Ganglion Problem Active cyst cyst Fatty liver Fatty liver Problem Active Mass of Mass of Problem Active left axilla left axilla Blunt Blunt Problem Active trauma to trauma to abdomen, abdomen, initial initial encounter encounter Sprain of Sprain of Diagnosis Active low back, low back, initial initial encounter encounter Abscess of Abscess of Problem Active axilla, axilla, left left Allergies, Adverse Reactions, Alerts Allergy Allergy Status Severity Reaction(s) Onset Inactive Treating C omments Name Type Date Date Clinician PCN Adverse Active rash Reaction Bactrim DS Adverse Active rash Reaction Medications Ordered Filled Start Stop Current Ordering Indication Dosage Frequency Signature Comments Components Medication Medication Date Date Medication? Clinician (SIG) Name Name Methocarbam Methocarbam 2020- Yes Radha 1 table t ol ol 06-27 [place] 00:00: 00:00 00 :00 Cipro Cipro 2020- Yes Radha 1 tablet 06-27 [place] 00:00: 00:00 00 :00 PredniSONE PredniSONE 2020- Yes Radha 1 tablet 06-27 [place] 00:00: 00:00 00 :00 Levothyroxi Levothyroxi 2018- Yes Radha 1 table t ne Sodium ne Sodium 1-22 [place] on an 00:00: empty 00 stomach in the morning Fluticasone Fluticasone 2019-0 Yes Radha 1 spray in Propionate Propionate 6-10 [place] each 00:00: nostril 00 Omeprazole Omeprazole Yes Radha 1 capsule [place] Vitamin C Vitamin C Yes Radha 1 tablet [place] ProAir ProAir Yes Radha 2 puffs as RespiClick RespiClick [place] needed Claritin-D Claritin-D Yes Radha 1 tablet 24 Hour 24 Hour [place] as needed Encounters Start End Encounter Admission Attending Care Care Encounter Date/Time Date/Time Type Type Clinicians Facility Department ID 2019-06-28 2019-06-28 [id number] 14:20:00 14:20:00 [facility] 2019-05-10 2019-05-10 [id number] 13:57:00 13:57:00 [facility] 2019-04-30 2019-04-30 [id number] 08:00:00 08:00:00 [facility] 2019-02-08 2019-02-08 [id number] 18:06:00 18:06:00 [facility] 2019-02-05 2019-02-05 [id number] 16:33:00 16:33:00 [facility] 2019-02-03 2019-02-03 [id number] 16:36:00 16:36:00 [facility] 2018-12-28 2018-12-28 [id number] 09:54:00 09:54:00 [facility] 2018-12-04 2018-12-04 [id number] 10:00:00 10:00:00 [facility] 2018-11-19 2018-11-19 [id number] 17:18:00 17:18:00 [facility] 2018-11-10 2018-11-10 [id number] 14:28:00 14:28:00 [facility] 2018-11-06 2018-11-06 [id number] 10:00:00 10:00:00 [facility] 2017-02-14 2017-02-14 [facility] [facility] [id number] 04:32:00 08:45:00 LIZ Results Test Description Test Time Test Comments Text Results Atomic Results Result Comments URINE MONOCLONALFB 2017-02-14 05:49:00 Test Item Value Reference Range Comments PREG UR (test code = PGU) NEGATIVE NEGATIVE
--- OUTSIDE RECORDS SUMMARY | 2019-07-05 09:09 | XMS REPORT ---
[...] End Status Dosage System Date Date Levothyroxine [facility] 38259148387 125 MCG Orally Active 1 tablet Sodium Once a day on an empty stomach in the morning Results No Known Results Summary Purpose eClinicalWorks Submission
--- OUTSIDE RECORDS SUMMARY | 2019-07-05 09:09 | XMS REPORT ---
[...] End Status Dosage System Date Date Levothyroxine [facility] [id number] 125 MCG Orally Feb 05, Active 1 tablet Sodium Once a day 2018 on an empty stomach in the morning Results No Known Results Summary Purpose eClinicalWorks Submission
--- OUTSIDE RECORDS SUMMARY | 2019-07-05 09:09 | XMS REPORT ---
[...] Status Dosage System Date Date ProAir RespiClick [facility] 32062614785 108 (90 Base) Acti ve 2 puffs as MCG/ACT needed Inhalation every 6 hrs Benzonatate [facility] 74048263373 100 MG Orally Active 1 capsule Three times a as needed day Naproxen Sodium [facility] 34500384924 375 MG Oral Active not ER defined Requip [facility] 26809313479 0.5 MG Orally Active 1 tabl et 1 Once a day to 3 hours before bedtime Claritin-D 24 [facility] 97921948926 10-240 MG Active 1 ta blet Hour Orally Once a as needed day Fluticasone ND 23552739938 50 MCG/ACT August 24, Active 1 sp ray in Propionate Nasally Twice a 2019 each day nostril Omeprazole [facility] 40177073778 40 MG Orally Active 1 ca psule Once a day Levothyroxine NDC 24705634697 125 MCG Orally Feb 05, Active 1 tablet Sodium Once a day 2018 on an empty stomach in the morning Xyzal [facility] 77360192542 5 MG Orally Active 1 tablet Once a day in the evening Qvar [facility] 19662884207 40 MCG/ACT Active 1 puff Inhalation Twice a day Vitamin C [facility] 41210316648 1000 MG Orally Active 1 t ablet Once a day Lidocaine [facility] 00015598561 5 % External Active not defined Results No Known Results Summary Purpose eClinicalWorks Submission
--- OUTSIDE RECORDS SUMMARY | 2019-07-05 09:10 | XMS REPORT ---
[...] End Date Status Dosage System Date ProAir [facility] 43735471194 108 (90 Base) Active 2 puff s as RespiClick MCG/ACT needed Inhalation every 6 hrs Fluticasone ND 31693371015 50 MCG/ACT August 24, Active 1 sp ray in Propionate Nasally Twice a 2019 each day nostril Claritin-D 24 ND 27647299361 10-240 MG Active 1 ta blet Hour Orally Once a as needed day Methocarbamol ND 36884257333 750 MG Orally June Active 1 tablet every 6 hrs 2019 Cipro ND 38657920333 500 MG Orally June Active 1 tabl et every 12 hrs 2019 Omeprazole [facility] 29643248169 40 MG Orally Active 1 ca psule Once a day Levothyroxine [facility] 07705420656 125 MCG Orally Feb 05, Active 1 tablet Sodium Once a day 2018 on an empty stomach in the morning Vitamin C [facility] 11239602460 1000 MG Orally Active 1 t ablet Once a day PredniSONE [facility] 53457006148 10 MG Orally June Active 1 ta blet Once a day 2019 Results No Known Results Summary Purpose eClinicalWorks Submission
--- OUTSIDE RECORDS SUMMARY | 2019-07-05 09:10 | XMS REPORT ---
[...] System Date Date Levothyroxine [facility] [id number] 125 MCG Orally Feb 05, Active 1 tablet Sodium Once a day 2018 on an empty stomach in the morning Omeprazole ND 23438417909 40 MG Orally Active 1 ca psule Once a day Vitamin C ND 37293507471 1000 MG Orally Active 1 t ablet Once a day Benzonatate ND 69041555142 100 MG Orally Active 1 capsule Three times a as needed day ProAir RespiClick [facility] 80125492341 108 (90 Base) Acti ve 2 puffs as MCG/ACT needed Inhalation every 6 hrs Fluticasone ND 32175724523 50 MCG/ACT August 24, Active 1 sp ray in Propionate Nasally Twice a 2018 each day nostril Claritin-D 24 ND 62196719336 10-240 MG Active 1 ta blet Hour Orally Once a as needed day Results Name Result Date Reference Range Unit Abnormali ty Flag Chest Pa And Lat (2 Views) Summary Purpose eClinicalWorks Submission
[2019-07-05] MEDS ORDERED: KETOROLAC 30 MG/ML INJ ONE (09:28)
[2019-07-05] MEDS ORDERED: DIAZEPAM 5 MG TABLET ONE (09:28)
--- NOTE | 2019-07-05 10:09 | RAD REPORT ---
EXAM DESCRIPTION: RAD - Lumbar Spine 3 Views - 07/05/2019 9:57 am CLINICAL HISTORY: PAIN COMPARISON: Abdomen Single View dated 04/30/2019 FINDINGS: A three-view lumbar spine examination was performed. Lumbar bodies are normal in height and normal in AP alignment. There is right lateral tilt of the upp er lumbar spine. No scoliotic curvature with seen on the April 30 KUB. This may be a positioning a rtifact or due to muscle spasm. No fracture changes seen. No lytic, sclerotic or expansile bony destructive process. No lumbar disc space narrowing. There is spurring and sclerotic changes anteriorly at T11-12. Patient has moderate s everity L5-S1 facet joint degenerative change with more mild degenerative facet changes L4-5. No pars defects identified. IMPRESSION: No compression fracture or acute vertebral body finding. Right lateral tilt of the upper lumbar spine is new from April and is probably a positioning artif act or the affects of muscle spasm. Moderate L5-S1 and mild L4-5 facet joint degenerative change.
--- NOTE | 2019-07-05 10:14 | ER ---
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 Coronavirus screen: Proceed with normal triage. Ebola Screen: No symptoms or risks identified at this time. Initial Sepsis Screen: Does the patient meet any 2 criteria? No. Patient's initial sepsis screen is negative. Does the patient have a suspected source of infection? No. Patient's initial sepsis screen is negative. Risk Assessment: Do you want to hurt yourself or someone else? Patient reports no desire to harm self or others. Onset of symptoms was July 05, 2019. 09:14 Method Of Arrival: Wheelchair hb 09:14 Acuity: SAMIR 3 hb Historical: - Allergies: 09:16 PENICILLINS; hb - PSHx: 09:16 right foot; Cholecystectomy; Tonsillectomy; hb - Immunization history:: Adult Immunizations up to date. - Social history:: Smoking status: Patient denies any tobacco usage or history of. Screenin:30 Abuse screen: Denies threats or abuse. Nutritional screening: No deficits noted. em Tuberculosis screening: No symptoms or risk factors identified. Fall Risk None identified. Assessment: 09:30 General: Appears in no apparent distress. uncomfortable, Behavior is cooperative, em crying, Denies fever. Pain: Complains of pain in back Pain currently is 10 out of 10 on a pain scale. Neuro: Level of Consciousness is awake, alert, obeys commands, Oriented to person, place, time, situation, Appropriate for age. Cardiovascular: Capillary refill < 3 seconds Patient's skin is warm and dry. Respiratory: Airway is patent Respiratory effort is even, unlabored, Respiratory pattern is regular, symmetrical. GI: Abdomen is flat. Derm: Skin is intact, is healthy with good turgor, Skin is pink, warm \T\ dry. Musculoskeletal: Capillary refill < 3 seconds, Range of motion: intact in all extremities. 09:42 Reassessment: Patient appears in no apparent distress at this time. wheeled to x-ray in em stretcher. 10:55 Reassessment: pt request to speak to provider, provider at bedside. em 11:42 Reassessment: Patient and/or family updated on plan of care and expected duration. Pain em level reassessed. Patient is alert, oriented x 3, equal unlabored respirations, skin warm/dry/pink. Patient states feeling better. Vital Signs: 09:14 BP 132 / 78; Pulse 69; Resp 16; Temp 98.2; Pulse Ox 97% ; Weight 88.9 kg; Height 5 ft. hb 3 in. (160.02 cm); Pain 10/10; 09:14 Body Mass Index 34.72 (88.90 kg, 160.02 cm) hb ED Course: 09:09 Patient arrived in ED. mr 09:15 Triage completed. hb 09:16 Arm band placed on. hb 09:19 Vijay Pillai, YADIRA is Primary Nurse. em 09:19 Dasia Abreu FNP-C is PHCP. snw 09:19 Moris Wells MD is Attending Physician. snw 09:22 Patient has correct armband on for positive identification. Bed in low position. Call mh5 light in reach. Side rails up X 1. Pulse ox on. NIBP on. 09:56 X-ray completed. Patient tolerated procedure well. Patient moved back from radiology. mh1 09:57 Lumbar Spine (3 Views) XRAY In Process Unspecified. EDMS 11:42 No provider procedures requiring assistance completed. Patient did not have IV access em during this emergency room visit. Administered Medications: 09:29 Drug: Valium 5 mg Route: PO; em 09:50 Follow up: Response: No adverse reaction; Pain is unchanged, physician notified em 09:29 Drug: TORadol 30 mg Route: IM; Site: right deltoid; em 09:50 Follow up: Response: No adverse reaction; Pain is unchanged, physician notified em 10:59 Drug: morphine 5 mg Route: IM; Site: left deltoid; em 11:43 Follow up: Response: No adverse reaction; Marked relief of symptoms; Pain is decreased em Outcome: 10:13 Discharge ordered by . snw 11:42 Discharged to home via wheelchair. em 11:42 Condition: good 11:42 Discharge instructions given to patient, Instructed on discharge instructions, follow up and referral plans. medication usage, Demonstrated understanding of instructions, follow-up care, medications, Prescriptions given X 3. 11:43 Patient left the ED. em Signatures: Dispatcher [employer] EDDasia Manzano, ALLEY WORKER-C ALLEY WORKER-Csnw Bia Hernandes Martha 1 Vijay Pillai RN RN em Baxter, Heather, RN RN Leanne Hebert [facility]
--- NOTE | 2019-07-05 10:15 | EDPHYS ---
Physician Documentation [facility] Name: Krysten Love Age: 54 yrs Sex: Female : 1965 Arrival Date: 07/05/2019 Time: 09:09 Bed 19 Private MD: ED Physician Moris Wells HPI: 07/04 10:33 This 54 yrs old Female presents to ER via Wheelchair with complaints of Back snw Pain. 10:33 The patient presents with pain that is acute, with no known mechanism of injury. The snw symptoms are located in the low back. Onset: The symptoms/episode began/occurred suddenly, this morning, and became persistent. The pain radiates to the right gluteal fold and right hamstring. Associated signs and symptoms: The patient has no apparent associated signs or symptoms. The problem was sustained when bending over. Severity of symptoms: At their worst the symptoms were moderate, severe. The patient has experienced similar episodes in the past. It is unknown whether or not the patient has recently seen a physician. Historical: - Allergies: 09:16 PENICILLINS; hb - PSHx: 09:16 right foot; Cholecystectomy; Tonsillectomy; hb - Immunization history:: Adult Immunizations up to date. - Social history:: Smoking status: Patient denies any tobacco usage or history of. ROS: 10:29 Constitutional: Negative for fever, chills, and weight loss, Eyes: Negative for injury, snw pain, redness, and discharge, ENT: Negative for injury, pain, and discharge, Neck: Negative for injury, pain, and swelling, Cardiovascular: Negative for chest pain, palpitations, and edema, Respiratory: Negative for shortness of breath, cough, wheezing, and pleuritic chest pain, Abdomen/GI: Negative for abdominal pain, nausea, vomiting, diarrhea, and constipation, : Negative for injury, bleeding, discharge, and swelling, MS/Extremity: Negative for injury and deformity, Skin: Negative for injury, rash, and discoloration, Neuro: Negative for headache, weakness, numbness, tingling, and seizure, Psych: Negative for depression, anxiety, suicide ideation, homicidal ideation, and hallucinations. 10:29 Back: Positive for decreased range of motion, pain at rest, pain with movement, radiated pain, of the low back area. Exam: 10:29 Constitutional: This is a well developed, well nourished patient who is awake, alert, snw and hyperventilating. Head/Face: Normocephalic, atraumatic. Eyes: Pupils equal round and reactive to light, extra-ocular motions intact. Lids and lashes normal. Conjunctiva and sclera are non-icteric and not injected. Cornea within normal limits. Periorbital areas with no swelling, redness, or edema. ENT: Nares patent. No nasal discharge, no septal abnormalities noted. Tympanic membranes are normal and external auditory canals are clear. Oropharynx with no redness, swelling, or masses, exudates, or evidence of obstruction, uvula midline. Mucous membranes moist. Neck: Trachea midline, no thyromegaly or masses palpated, and no cervical lymphadenopathy. Supple, full range of motion without nuchal rigidity, or vertebral point tenderness. No Meningismus. Chest/axilla: Normal chest wall appearance and motion. Nontender with no deformity. No lesions are appreciated. Cardiovascular: Regular rate and rhythm with a normal S1 and S2. No gallops, murmurs, or rubs. Normal PMI, no JVD. No pulse deficits. Respiratory: Lungs have equal breath sounds bilaterally, clear to auscultation and percussion. No rales, rhonchi or wheezes noted. No increased work of breathing, no retractions or nasal flaring. Abdomen/GI: Soft, non-tender, with normal bowel sounds. No distension or tympany. No guarding or rebound. No evidence of tenderness throughout. Skin: Warm, dry with normal turgor. Normal color with no rashes, no lesions, and no evidence of cellulitis. MS/ Extremity: Pulses equal, no cyanosis. Neurovascular intact. Full, normal range of motion. Neuro: Awake and alert, GCS 15, oriented to person, place, time, and situation. Cranial nerves II-XII grossly intact. Motor strength 5/5 in all extremities. Sensory grossly intact. Cerebellar exam normal. Normal gait. Psych: Awake, alert, with orientation to person, place and time. Behavior, mood, and affect are within normal limits. 10:29 Back: pain, that is moderate, of the right low back, ROM is painful, CVA tenderness, is absent, vertebral tenderness, is not appreciated, muscle spasm, is appreciated in the low back area. Vital Signs: 09:14 BP 132 / 78; Pulse 69; Resp 16; Temp 98.2; Pulse Ox 97% ; Weight 88.9 kg; Height 5 ft. hb 3 in. (160.02 cm); Pain 10; 09:14 Body Mass Index 34.72 (88.90 kg, 160.02 cm) hb MDM: 09:23 Patient medically screened. snw 10:32 Data reviewed: vital signs, nurses notes. Data interpreted: Pulse oximetry: on room air snw is 97 %. Interpretation: normal. Counseling: I had a detailed discussion with the patient and/or guardian regarding: the historical points, exam findings, and any diagnostic results supporting the discharge/admit diagnosis, radiology results, the need for outpatient follow up, to return to the emergency department if symptoms worsen or persist or if there are any questions or concerns that arise at home. Special discussion: Based on the history and exam findings, there is no indication for further emergent testing or inpatient evaluation. I discussed with the patient/guardian the need to see the primary care provider for further evaluation of the symptoms. 11:52 ED course: pt ambulated to bathroom, +UOP, states it is inappropriate to send her home snw "to fend for herself". Pt encouraged to take her medications as directed, avoid sitting, lie flat with knees elevated on a firm surface, gentle ROM exercises with hot showers. Encouraged to f/u PCP. Pt angry she will not be admitted today. 07/04 09:20 Order name: Lumbar Spine (3 Views) XRAY; Complete Time: 10:11 snw Administered Medications: 09:29 Drug: Valium 5 mg Route: PO; em 09:50 Follow up: Response: No adverse reaction; Pain is unchanged, physician notified em 09:29 Drug: TORadol 30 mg Route: IM; Site: right deltoid; em 09:50 Follow up: Response: No adverse reaction; Pain is unchanged, physician notified em 10:59 Drug: morphine 5 mg Route: IM; Site: left deltoid; em 11:43 Follow up: Response: No adverse reaction; Marked relief of symptoms; Pain is decreased em Disposition: 14:26 Co-signature as Attending Physician, Moris Wells MD. rn Disposition: 07/05/19 10:13 Discharged to Home. Impression: Low back pain, Radiculopathy, lumbosacral region, Muscle spasm of back. - Condition is Stable. - Discharge Instructions: Back Pain, Adult, Lumbosacral Radiculopathy, Musculoskeletal Pain, Muscle Cramps and Spasms, Nobn-dn-Hgae, Cryotherapy, Rehydration, Adult, Heat Therapy. - Prescriptions for Prednisone 20 mg Oral Tablet - take 2 tablet by ORAL route once daily for 5 days; 10 tablet. orphenadrine citrate 100 mg Oral Tablet Sustained Release - take 1 tablet by ORAL route 2 times per day As needed; 20 tablet. Valium 5 mg Oral Tablet - take 1 tablet by ORAL route every 8 hours As needed; 6 tablet. - Medication Reconciliation Form, Thank You Letter, Antibiotic Education, Prescription Opioid Use form. - Follow up: Emergency Department; When: As needed; Reason: Worsening of condition. Follow up: Private Physician; When: 1 - 2 days; Reason: Recheck today's complaints, Continuance of care, Re-evaluation by your physician. Signatures: Dispatcher [employer] EDDasia Manzano FNP-C MANUFACTURING ENGINEER-CsnVijay Villegas, YADIRA RN em Moris Wells MD MD rn Baxter, Heather, RN RN Corrections: (The following items were deleted from the chart) 11:43 10:13 07/05/2019 10:13 Discharged to Home. Impression: Low back pain; Radiculopathy, em lumbosacral region; Muscle spasm of back. Condition is Stable. Forms are Medication Reconciliation Form, Thank You Letter, Antibiotic Education, Prescription Opioid Use. Follow up: Emergency Department; When: As needed; Reason: Worsening of condition. Follow up: Private Physician; When: 1 - 2 days; Reason: Recheck today's complaints, Continuance of care, Re-evaluation by your physician. snw
[2019-07-05] MEDS ORDERED: MORPHINE 2 MG/ML SYR ONE (10:58)
[2019-07-05] MEDS ORDERED: MORPHINE 4 MG/ML SYR ONE (10:58)
[2019-07-05 11:49] VITALS: BP 132/78; TEMP 98.2; O2SAT 97
== END 2019-07-05 11:43 | disposition home or self-care (01) ==
LOC: ER 09:07
DX: M54.17 Radiculopathy, lumbosacral region (principal); M62.830 Muscle spasm of back; Z88.0 Allergy status to penicillin
CPT/HCPCS: 72100; J2270; 96372; 99284

== ENCOUNTER 2021-09-16 13:37 | Emergency (ER) | payer OTHER ==
--- NOTE | 2021-09-16 15:43 | RAD REPORT ---
EXAM DESCRIPTION: CT - Spine Lumbar Wo Con - 09/16/2021 3:33 pm CLINICAL HISTORY: Low back pain, trauma, fall several days earlier with persistent pain COMPARISON: None. TECHNIQUE: Thin section axial imaging of the lumbar spine was performed. Sagittal and coronal recon struction images were generated and reviewed. All CT scans are performed using dose optimization technique as appropriate and may include automated exposure control or mA/KV adjustment according to patient size. FINDINGS: Lumbar bodies are normal in height and alignment. No fracture or acute vertebral body find ing. No facet joint alignment abnormality. Mild bilateral facet joint degenerative change at L4-5 wit h advanced right-side and moderate left-sided facet degenerative change L5-S1. SI joints are normal i n appearance. Central canal detail is inherently limited; however, there is no evidence for herniation or significa nt disc bulge. No central canal abnormality seen. No paraspinal mass or hematoma. IMPRESSION: CT lumbar spine examination shows scattered degenerative change as detailed. No acute finding.
--- NOTE | 2021-09-16 15:46 | RAD REPORT ---
EXAM DESCRIPTION: CT - Thoracic Spine W/o Cont - 09/16/2021 3:33 pm CLINICAL HISTORY: Fall, midthoracic pain COMPARISON: CT lumbar spine same date TECHNIQUE: Axial 2 mm thick images of the thoracic spine were obtained with sagittal and coronal rec onstruction images generated and reviewed. All CT scans are performed using dose optimization technique as appropriate and may include automated exposure control or mA/KV adjustment according to patient size. FINDINGS: Thoracic vertebral bodies are normal in height. No subluxation abnormalities. AP alignment is normal. There is an overall accentuated kyphosis. Endplate spurring changes are present in the mi d and lower thoracic spine. No significant disc space narrowing. No fracture or acute bony abnormalit y. No paraspinal mass or hematoma. Central canal detail is inherently limited on CT imaging. IMPRESSION: Mild degenerative change in the lower thoracic spine. No fracture or acute finding.
[2021-09-16] MEDS ORDERED: methocarbamoL 500 MG TAB ONE ×2 (16:27→16:29)
[2021-09-16] MEDS ORDERED: IBUPROFEN 200 MG TAB PO ONE (16:27)
[2021-09-16] MEDS ORDERED: IBUPROFEN 400 MG TAB ONE (16:28)
[2021-09-16] MEDS ORDERED: predniSONE 20 MG TAB ONE (16:28)
--- NOTE | 2021-09-16 17:10 | EDPHYS ---
Physician Documentation [facility] Name: Krysten Love Age: 56 yrs Sex: Female : 1965 Arrival Date: 09/16/2021 Time: 13:39 Bed 11 Private MD: ED Physician Shaheen Davies HPI: 09/16 19:08 This 56 yrs old Female presents to ER via Ambulatory with complaints of Back Injury. kdr 19:08 The patient presents with pain that is acute. The symptoms are located in the low back, kdr thoracic area and lumbar area. Onset: The symptoms/episode began/occurred acutely. 19:09 The pain does not radiate. Associated signs and symptoms: The patient has no apparent kdr associated signs or symptoms. The problem was sustained during a fall, while standing, while walking, fall backward. Modifying factors: The patient symptoms are alleviated by nothing, the patient symptoms are aggravated by any movement. Severity of symptoms: At their worst the symptoms were mild, moderate, just prior to arrival, in the emergency department the symptoms are unchanged. The patient has not experienced similar symptoms in the past. The patient has not recently seen a physician. 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 - Social history:: Smoking status: Patient denies any tobacco usage or history of. ROS: 19:09 Constitutional: Negative for fever, chills, and weight loss, Eyes: Negative for injury, kdr pain, redness, and discharge, Neck: Negative for injury, pain, and swelling, Cardiovascular: Negative for chest pain, palpitations, and edema, Respiratory: Negative for shortness of breath, cough, wheezing, and pleuritic chest pain, Abdomen/GI: Negative for abdominal pain, nausea, vomiting, diarrhea, and constipation, : Negative for injury, bleeding, discharge, and swelling, MS/Extremity: Negative for injury and deformity, Skin: Negative for injury, rash, and discoloration, Neuro: Negative for headache, weakness, numbness, tingling, and seizure activity. 19:09 Back: Positive for injury or acute deformity, pain with movement. Exam: 19:09 Constitutional: This is a well developed, well nourished patient who is awake, alert, kdr and in no acute distress. Head/Face: Normocephalic, atraumatic. Eyes: Pupils equal round and reactive to light, extra-ocular motions intact. Lids and lashes normal. Conjunctiva and sclera are non-icteric and not injected. Cornea within normal limits. Periorbital areas with no swelling, redness, or edema. Neck: Trachea midline, no thyromegaly or masses palpated, and no cervical lymphadenopathy. Supple, full range of motion without nuchal rigidity, or vertebral point tenderness. No Meningismus. Chest/axilla: Normal chest wall appearance and motion. Nontender with no deformity. No lesions are appreciated. Cardiovascular: Regular rate and rhythm with a normal S1 and S2. No gallops, murmurs, or rubs. Normal PMI, no JVD. No pulse deficits. Respiratory: Lungs have equal breath sounds bilaterally, clear to auscultation and percussion. No rales, rhonchi or wheezes noted. No increased work of breathing, no retractions or nasal flaring. Abdomen/GI: Soft, non-tender, with normal bowel sounds. No distension or tympany. No guarding or rebound. No evidence of tenderness throughout. Skin: Warm, dry with normal turgor. Normal color with no rashes, no lesions, and no evidence of cellulitis. MS/ Extremity: Pulses equal, no cyanosis. Neurovascular intact. Full, normal range of motion. Neuro: Awake and alert, GCS 15, oriented to person, place, time, and situation. Cranial nerves II-XII grossly intact. Motor strength 5/5 in all extremities. Sensory grossly intact. Cerebellar exam normal. Normal gait. Psych: Awake, alert, with orientation to person, place and time. Behavior, mood, and affect are within normal limits. Vital Signs: 14:19 BP 150 / 89; Pulse 82; Resp 18; Temp 97.8; Pulse Ox 98% on R/A; Weight 90.72 kg; Height ph 5 ft. 3 in. (160.02 cm); 16:52 BP 142 / 68; Pulse 72; Resp 18; Temp 98.0; Pulse Ox 99% on R/A; ph 14:19 Body Mass Index 35.43 (90.72 kg, 160.02 cm) ph MDM: 17:09 Patient medically screened. kdr 19:12 Data reviewed: vital signs, nurses notes, lab test result(s), radiologic studies. kdr Counseling: I had a detailed discussion with the patient and/or guardian regarding: the historical points, exam findings, and any diagnostic results supporting the discharge/admit diagnosis, radiology results, the need for outpatient follow up. 09/16 14:52 Order name: CT Thoracic Spine Wo Cont; Complete Time: 15:49 kdr 09/16 14:52 Order name: CT Lumbar Spine Wo Con; Complete Time: 15:49 kdr Administered Medications: 16:51 Drug: Robaxin (methocarbamol) 750 mg Route: PO; ph 16:51 Follow up: Response: No adverse reaction ph 16:51 Not Given (Patient Refused): Ibuprofen 600 mg PO once ph 16:51 Drug: predniSONE 60 mg Route: PO; ph 16:51 Follow up: Response: No adverse reaction ph Disposition Summary: 09/16/21 17:09 Discharge Ordered Location: Home kdr Problem: an ongoing problem kdr Symptoms: have improved kdr Condition: Stable kdr Diagnosis - Back Pain kdr Followup: kdr - With: Private Physician - When: 2 - 3 days - Reason: If symptoms return, Further diagnostic work-up, Recheck today's complaints, Continuance of care, Re-evaluation by your physician Discharge Instructions: - Discharge Summary Sheet kdr - Acute Back Pain, Adult kdr - Musculoskeletal Pain kdr Forms: - Medication Reconciliation Form kdr - Thank You Letter kdr - Prescription Opioid Use kdr Prescriptions: - methocarbamol 750 mg Oral Tablet - take 2 tablets by ORAL route 3 times per day; 45 tablet; Refills: 0, Product kdr Selection Permitted - etodolac 300 mg Oral capsule - take 1 capsule by ORAL route 3 times per day with food; 21 capsule; Refills: 0, kdr Product Selection Permitted - Medrol (Werner) 4 mg Oral Tablets, Dose Pack - take 1 tablet by ORAL route as directed - follow package instructions; 1 kdr packet; Refills: 0, Product Selection Permitted Signatures: Dispatcher [employer] Shaheen Bhatti MD MD kdr Nelly Sepulveda RN RN ph
--- NOTE | 2021-09-16 17:10 | ER ---
Nurse's Notes [facility] Name: Krysten Love Age: 56 yrs Sex: Female : 1965 Arrival Date: 09/16/2021 Time: 13:39 Bed 11 Private MD: Diagnosis: Back Pain Presentation: 09/16 14:19 Chief complaint: Patient states: Fell Friday at work, landed on back, c/o pain from mid ph back down to lower back. Coronavirus screen: Vaccine status: Patient reports receiving the 2nd dose of the covid vaccine. Ebola Screen: No symptoms or risks identified at this time. Initial Sepsis Screen: Does the patient meet any 2 criteria? No. Patient's initial sepsis screen is negative. Does the patient have a suspected source of infection? No. Patient's initial sepsis screen is negative. Risk Assessment: Do you want to hurt yourself or someone else? Patient reports no desire to harm self or others. Onset of symptoms was September 16, 2021. 14:19 Method Of Arrival: Ambulatory ph 14:19 Acuity: SAMIR 4 ph Triage Assessment: 14:22 General: Appears in no apparent distress. Behavior is calm, cooperative, appropriate ph for age. Pain: Complains of pain in low back area and mid back area. Neuro: Level of Consciousness is awake, alert, obeys commands, Oriented to person, place, time, situation. Derm: Skin is intact, is healthy with good turgor, Skin is pink, warm \T\ dry. Musculoskeletal: Circulation, motion, and sensation intact. Range of motion: intact in all extremities. 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 - Social history:: Smoking status: Patient denies any tobacco usage or history of. Screenin:23 Abuse screen: Denies threats or abuse. Denies injuries from another. Nutritional ph screening: No deficits noted. Tuberculosis screening: No symptoms or risk factors identified. Fall Risk None identified. Assessment: 14:25 General: SEE TRIAGE ASSESSMENT. ph 16:52 Reassessment: Patient appears in no apparent distress at this time. Patient and/or ph family updated on plan of care and expected duration. Pain level reassessed. Patient is alert, oriented x 3, equal unlabored respirations, skin warm/dry/pink. Vital Signs: 14:19 BP 150 / 89; Pulse 82; Resp 18; Temp 97.8; Pulse Ox 98% on R/A; Weight 90.72 kg; Height ph 5 ft. 3 in. (160.02 cm); 16:52 BP 142 / 68; Pulse 72; Resp 18; Temp 98.0; Pulse Ox 99% on R/A; ph 14:19 Body Mass Index 35.43 (90.72 kg, 160.02 cm) ph ED Course: 13:39 Patient arrived in ED. mr 13:42 Shaheen Davies MD is Attending Physician. kdr 14:19 Nelly Sepulveda, YADIRA is Primary Nurse. ph 14:21 Triage completed. ph 14:23 Arm band placed on Patient placed in an exam room, on a stretcher. ph 14:23 Patient has correct armband on for positive identification. Bed in low position. Call ph light in reach. Side rails up X 1. Pulse ox on. NIBP on. Door closed. Noise minimized. Warm blanket given. 15:34 CT Thoracic Spine Wo Cont In Process Unspecified. EDMS 15:34 CT Lumbar Spine Wo Con In Process Unspecified. EDMS 16:52 No provider procedures requiring assistance completed. Patient did not have IV access ph during this emergency room visit. Administered Medications: 16:51 Drug: Robaxin (methocarbamol) 750 mg Route: PO; ph 16:51 Follow up: Response: No adverse reaction ph 16:51 Not Given (Patient Refused): Ibuprofen 600 mg PO once ph 16:51 Drug: predniSONE 60 mg Route: PO; ph 16:51 Follow up: Response: No adverse reaction ph Medication: 14:23 VIS not applicable for this client. ph Outcome: 17:09 Discharge ordered by . kdr 17:15 Discharged to home ambulatory, with family. ss 17:15 Condition: good 17:15 Discharge instructions given to patient, family, Instructed on discharge instructions, follow up and referral plans. medication usage, Demonstrated understanding of instructions, follow-up care, medications, Prescriptions given X 3. 17:16 Patient left the ED. ss Signatures: Dispatcher [employer] EDMS Shaheen Davies MD MD kdr Rivera, Mary mr Suzanne Chin, RN RN ss Derick, Nelly, RN RN ph
[2021-09-16 18:16] VITALS: BP 142/68; TEMP 98; O2SAT 99
== END 2021-09-16 17:16 | disposition home or self-care (01) ==
LOC: ER 13:37
DX: M54.50 Low back pain, unspecified (principal); M54.9 Dorsalgia, unspecified; Z88.0 Allergy status to penicillin
CPT/HCPCS: 72131; 72128; 99284; J7512

== ENCOUNTER 2022-01-08 10:46 | Emergency (ER) | payer BC ==
--- OUTSIDE RECORDS SUMMARY | 2022-01-08 10:55 | XMS REPORT | Continuity of Care Document ---
:1965 Author Organization [facility] t Address [address] [place] [address] Care Team Providers Name Role Phone RADHA ESTES Primary Care Physician Unavailable Radha Estes Attending Clinician Unavailable SAMMI WILSON Attending Clinician Unavailable DIVINE RESTREPO Attending Clinician Unavailable Ivette Hernandez PA-C Attending Clinician Melissa Londono Attending Clinician IVETTE HERNANDEZ Attending Clinician Unavailable Sammi Wilson MD Attending Clinician Divine Restrepo PA-C Attending Clinician RONI TEJADA Attending Clinician Unavailable Eliana Quick Attending Clinician Roni Tejada MD Attending Clinician EPI ESPINO Attending Clinician Unavailable Jameson Haas Attending Clinician Unavailable Mora Tran MD Attending Clinician MORA TRAN Attending Clinician Unavailable Doctor Unassigned, [place] Attending Clinician Unavailable DR LIZ MCKEON Attending Clinician Unavailable Jameson Haas Admitting Clinician Unavailable DR LIZ MCKEON Admitting Clinician Unavailable Payers Payer Name Policy Type Policy Number Effective Date Expiration Date Baldev Amin 6 [id number] Common Spiri t [employer] of [facility] Center Problems Condition Condition Condition Status Onset Resolution Last Treating Co mments Source Name Details Category Date Date Treatment Clinician Date Lichen Lichen Disease Recurre 2020-03 Overview: Unive rs simplex simplex nce 0-20 Formattin ity o f chronicus chronicus 00:00: [place] of [place] 00 note Medical might be Branch different from the original. Of the vulva Obesity Obesity Disease Active 2020-03 Univers (BMI (BMI 0-06 ity of 30-39.9) 30-39.9) 00:00: [place] 00 Medical Branch SI - Stress Problem Common Stress incontinen Spirit incontinen ce - [facility] ce [facility] Vitamin D Vitamin D Problem Com mon deficiency deficiency Sp [facility] [id number] Acquired Problem Commo n alpha Spirit thalassemi - [facility] [id number] Gastroesop Problem Co mmon hageal Spirit reflux - CHI disease [facility] esophagiti Medica l s without Center hemorrhage [id number] Rash Problem Common [facility] [id number] Breast Problem Commo n pain, left [facility] [id number] Encounter Problem Com mon for Spirit general - [facility] adult [facility] examinatio Medica l n without Center abnormal findings Thalassemi Thalassemi Problem C ommon a a [facility] Contact Contact Problem Common dermatitis dermatitis Sp [facility] Ganglion Ganglion Problem Commo n cyst cyst [facility] Seasonal Allergic Problem Commo n allergic rhinitis, Spiri t rhinitis seasonal [facility] 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 - CHI beats [facility]io [facility] Bradycardi Bradycardi Problem C ommon a a [facility] Restless Restless Problem Commo n legs legs Spirit syndrome syndrome - [facility] [id number] Lumbar Problem Common pain with Spirit radiation - CHI down both [facility] [id number] Abscess of Problem C ommon [id number] axilla, Spirit left [facility] Syncope Syncope Problem Common [facility] Hypothyroi Hypothyroi Problem C ommon dism dism [facility] [id number] Abscess Problem Commo n [facility] Cough Cough Problem Common [facility] [id number] Mass of Problem Commo n left Spirit axilla [facility] [id number] Strain of Problem Com mon left Spirit shoulder, - [facility]I initial [facility] [id number] Sprain of Problem Com mon low back, [facility] initial [facility] encounter [facility] [id number] Blunt Problem Common trauma to [facility] abdomen, [facility] initial [facility] [id number] Allergic Problem Commo n rhinitis, [facility] unspecifie - CHI d [facility], [facility] unspecie Center d trigger [id number] Dark urine Problem Com mon [facility] [id number] Arthralgia Problem Com mon , [facility] unspecifie - CHI d joint [facility] [id number] Lower Problem Common abdominal [facility] pain [facility] Fatty Fatty Problem Common liver liver [facility] Fatigue Fatigue Problem Common [facility] Anemia Anemia Problem Common [facility] [id number] Shortness Problem Com mon of breath [facility] Allergies, Adverse Reactions, Alerts Allergy Allergy Status Severity Reaction(s) Onset Inactive Treating Comm ents Source Name Type Date Date Clinician CEFACLOR DRUG Active Rash Univers INGREDI 09-21 ity of 00:00: [facility] LORATADI DRUG Active Other-Cmnt Univ ers NE INGREDI 09-21 ity of 00:: [facility] SULFAMET DRUG Active Rash Univers HOXAZOLE 09-21 ity of -TRIMETH 00:00: [place] OPRIM [address] [place] [address] Cefaclor Propensi Active Rash Univer s ty to 09-21 ity of adverse 00:00: [place] reaction [address] [place] [address] Branch Loratadi Drug Active Other - See Uni vers ne Allergy comments 09-21 ity of 00:00: [place] 00 Medical Branch Penicill DA Active U N/V, ITCH 2020-03 [facility] ins - Clear 00:00: [place] 00 Regiona l [facility] Sulfa DA Active U HIVES, 2020-03 [facility] (Sulfona FACIAL - Clear mide SWELLING 00:00: [place] Antibiot 00 Regiona ics) [facility] Cephalex Propensi Active Other - See 2020-03 U nivers in ty to comments 0-06 ity of adverse 00:00: [place] reaction 00 Medical s to Branch drug Penicill Propensi Active Other - See 2020-03 U nivers in ty to comments 0-06 ity of adverse 00:00: [place] reaction 00 Medical s to Branch drug PENICILL DRUG Active High Other-Cmnt 2020-03 Univ ers IN INGREDI 0-06 ity of 00:00: [place] 00 Medical Branch CEPHALEX DRUG Active Other-Cmnt 2020-03 Univ ers IN INGREDI 0-06 ity of 00:00: [place] 00 [facility] Branch 0 Drug Active rash Common allergy [facility] 6694 Drug Active chest pain Common allergy [facility] sulfamet sulfamet Active rash Common hoxazole hoxazole Spirit / / - CHI trimetho trimetho [facility] Social History Social Habit Start Date Stop Date Quantity Comments Source History of Common Spirit - Tobacco Use [facility] Sex Assigned At Common Sp sweetie - [facility] Exposure to 2021-10-11 2021-10-21 Not sure [facility] SARS-CoV-2 00:00:00 09:08:00 [facility] (event) [place] Alcohol intake 2021-07-16 2021-07-16 Ex-drinker [facility] 00:00:00 00:00:00 (finding) [facility] Tobacco use and 2020-12-20 2020-12-20 Smokeless tobacco Un iversity of exposure 00:00:00 00:00:00 non-user [facility] Smoking Status Start Date Stop Date Source Never Smoker [facility] Medications Ordered Filled Start Stop Current Ordering Indication Dosage Frequency Signature Comments Components Source Medication Medication Date Date Medication? 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 Thyroid 60 MG 60 MG 0-14 60 MG 00:00: 00 Azithromyci Azithromyci 2021- No QD Azithromyc n 250 MG n 250 MG 11-05 in 250 MG 00:00: 00:00 00 :00 albuterol Yes 1 puff as Uni vers (PROAIR 8 needed ity of HFA) 90 09:10: [place] mcg/actuati 27 Medical on inhaler Branch omeprazole Yes 1 capsule Un tala 40 mg 8 ity of capsule 09:10: [place] [address] Medical Branch albuterol 0 Yes 1 puff as Uni vers (PROAIR 8 needed ity of HFA) 90 09:10: [place] mcg/actuati Medical on inhaler Branch omeprazole Yes 1 capsule Un tala 40 mg 10-21 ity of capsule 09:10: [place] [address] Medical Branch doxycycline 2021- Yes [id number] 100mg Take 1 Univers hyclate 100 10-21-15 tablet by it y of mg tablet 00:00: 04:59 mouth in Sem[place] as 00 :00 the Medical morning Branch and 1 tablet in the evening. Do all this for 7 days. doxycycline 2021- Yes [id number] 100mg Take 1 Univers hyclate 100 10-21-15 tablet by it y of mg tablet 00:00: 04:59 mouth in Sem[place] 00 :00 the Medical morning Branch and 1 tablet in the evening. Do all this for 7 days. ProAir HFA ProAir HFA No 1{puff_ 6xD ProAir HFA 108 (90 108 (90 10-05 as_need 108 (90 Base) Base) 00:00: ed} Base) MCG/ACT MCG/ACT 00 MCG/ACT fluticasone Yes TORSTENKE Unive rs propionate 7-08 LIQUID AND ity of 50 00:00: USE 1 [place] mcg/actuati 00 SPRAY IN Medi samy on nasal EACH Branch spray NOSTRIL TWICE DAILY EVERY DAY fluticasone Yes SHAKE Unive rs propionate 7-08 LIQUID AND ity of 50 00:00: USE 1 [place] mcg/actuati 00 SPRAY IN Medi samy on nasal EACH Branch spray NOSTRIL TWICE DAILY EVERY DAY etodolac 2022-0 Yes TAKE 1 Univers 300 mg 7-03 CAPSULE BY ity of capsule 00:00: [place]AL ROUTE [place] 00 3 TIMES Medical PER DAY Branch WITH FOOD methocarbam 0 Yes TAKE 2 Univ ers oL 750 mg 7-03 TABLETS BY ity of tablet 00:00: ORAL ROUTE [place] 00 3 TIMES Medical PER DAY Branch methylPREDN 2021-0 Yes FOLLOW Univ ers ISolone 4 7-03 PACKAGE ity of mg tablets 00:00: DIRECTIONS ex Medical Branch etodolac 0 Yes TAKE 1 Univers 300 mg 7-03 CAPSULE BY ity of capsule 00:00: [place]TE [place] 00 3 TIMES Medical PER DAY Branch WITH FOOD methocarbam 0 Yes TAKE 2 Univ ers oL 750 mg 7-03 TABLETS BY ity of tablet 00:00: ORAL ROUTE [place] 3 TIMES Medical PER DAY Branch methylPREDN 2021-0 Yes FOLLOW Univ ers ISolone 4 7-03 PACKAGE ity of mg tablets 00:00: DIRECTIONS ex Medical Branch Toradol Toradol 0 No 60mg Common (Ketorolac) (Ketorolac) 2-28 S pirit 00:00: - CHI [facility] Toradol Toradol 2021-0 No 60mg Common (Ketorolac) (Ketorolac) 2-28 S pirit 00:00: - CHI [facility] Toradol Toradol 2021-0 No 60mg Common (Ketorolac) (Ketorolac) 2-28 S pirit 00:00: - [facility]I [facility] Toradol Toradol 2021-0 No 60mg Common (Ketorolac) (Ketorolac) 2-28 S pirit 00:00: - [facility] Toradol Toradol 2021-0 No 60mg Common (Ketorolac) (Ketorolac) 2-28 S pirit 00:00: - [facility] Toradol Toradol 2021-0 No 60mg Common (Ketorolac) (Ketorolac) 2-28 S pirit 00:00: - [facility] Toradol Toradol 2021-0 No 60mg Common (Ketorolac) (Ketorolac) 2-28 S pirit 00:00: - [facility] Toradol Toradol 2021-0 No 60mg Common (Ketorolac) (Ketorolac) 2-28 S pirit 00:00: - [facility] Toradol Toradol 2021-0 No 60mg Common (Ketorolac) (Ketorolac) 2-28 S pirit 00:00: - CHI 00 [facility] Toradol Toradol 2021-0 No 60mg Common (Ketorolac) (Ketorolac) 2-28 S pirit 00:00: - [facility] Toradol Toradol 2021-0 No 60mg Common (Ketorolac) (Ketorolac) 2-28 S pirit 00:00: - [facility] Toradol Toradol 2021-0 No 60mg Common (Ketorolac) (Ketorolac) 2-28 S pirit 00:00: - CHI 00 [facility] Toradol Toradol 2021-0 No 60mg Common (Ketorolac) (Ketorolac) 2-28 S pirit 00:00: - [facility] Toradol Toradol 2021-0 No 60mg Common (Ketorolac) (Ketorolac) 2-28 S pirit 00:00: - [facility] Toradol Toradol 2021-0 No 60mg Common (Ketorolac) (Ketorolac) 2-28 S pirit 00:00: - CHI 00 [facility] Methocarbam Methocarbam 2021- No 1{table QID Methocarba ol 750 MG ol 750 MG 05-14 t} mol 750 MG 00:00: 00:00 00 :00 Etodolac Etodolac 2021-2021- No 1{capsu BID Etodolac 300 MG 300 MG 05-14 le_with 300 MG 00:00: 00:00 _food} 00 :00 predniSONE predniSONE 2021- No 1{table QD predniSONE 20 MG 20 MG 05-14 t} 20 MG 00:00: 00:00 00 :00 methylPREDN methylPREDN 2021-0 2021- No methylPRED ISolone 4 ISolone 4 03-23 NISolone 4 MG MG 00:00: 00:00 MG 00 :00 methylPREDN methylPREDN 2021- No methylPRED ISolone 4 ISolone 4 03-23 NISolone 4 MG MG 00:00: 00:00 MG 00 :00 Azithromyci Azithromyci 2021- No QD Azithromyc n 250 MG n 250 MG 03-23 in 250 MG 00:00: 00:00 00 :00 azithromyci 2020-03 Yes [id number] 250mg Take 1 Univers n 250 mg 2-19 tablet by ity of tablet 00:00: mouth [place] 00 daily. 2 Medical tablets Branch day 1, 1 tablet days 2-5 azithromyci 2020-03 Yes [id number] 250mg Take 1 Univers n 250 mg 2-19 tablet by ity of tablet 00:00: mouth [place] 00 daily. 2 Medical tablets Branch day 1, 1 tablet days 2-5 azithromyci 2020-03 Yes [id number] 250mg Take 1 Univers n 250 mg 2-19 tablet by ity of tablet 00:00: [facility] daily. 2 Medical tablets Branch day 1, 1 tablet days 2-5 predniSONE 2020-03 Yes 2 tablet Uni vers 20 mg 2-14 ity of tablet 00:00: [address] predniSONE 2020-03 Yes 2 tablet Uni vers 20 mg 2-14 ity of tablet 00:00: [address] predniSONE predniSONE 2020-03 No 2{table QD predniSONE 20 MG 20 MG 2-14 t} 20 MG 00:00: 00 Solumedrol Solumedrol 2020-03 No 125mg Common 125mg/2ml 125mg/2ml 2-14 Spiri t 00:00: - CHI 00 [facility] predniSONE predniSONE 2020-03 No 2{table QD predniSONE 20 MG 20 MG 2-14 t} 20 MG 00:00: 00 predniSONE predniSONE 2020-03 No 2{table QD predniSONE 20 MG 20 MG 2-14 t} 20 MG 00:00: 00 predniSONE predniSONE 2020-03 No 2{table QD predniSONE 20 MG 20 MG 2-14 t} 20 MG 00:00: 00 predniSONE predniSONE 2020-03 No 2{table QD predniSONE 20 MG 20 MG 2-14 t} 20 MG 00:00: 00 Solumedrol Solumedrol 2021-1 No 125mg Common 125mg/2ml 125mg/2ml 2-14 Spiri t 00:00: - CHI 00 [facility] predniSONE predniSONE 2020-03 No 2{table QD predniSONE 20 MG 20 MG 2-14 t} 20 MG 00:00: 00 Solumedrol Solumedrol 2020-03 No 125mg Common 125mg/2ml 125mg/2ml 2-14 Spiri t 00:00: - CHI 00 [facility] predniSONE predniSONE 2020-03 No 2{table QD predniSONE 20 MG 20 MG 2-14 t} 20 MG 00:00: 00 Solumedrol Solumedrol 2020-03 No 125mg Common 125mg/2ml 125mg/2ml 2-14 Spiri t 00:00: - CHI 00 [facility] predniSONE predniSONE 2020-03 No 2{table QD predniSONE 20 MG 20 MG 2-14 t} 20 MG 00:00: 00 Solumedrol Solumedrol 2020-03 No 125mg Common 125mg/2ml 125mg/2ml 2-14 Spiri t 00:00: - CHI 00 [facility] predniSONE predniSONE 2020-03 No 2{table QD predniSONE 20 MG 20 MG 2-14 t} 20 MG 00:00: 00 Solumedrol Solumedrol 2020-03 No 125mg Common 125mg/2ml 125mg/2ml 2-14 Spiri t 00:00: - CHI 00 [facility] predniSONE predniSONE 2020-03 No 2{table QD predniSONE 20 MG 20 MG 2-14 t} 20 MG 00:00: 00 Solumedrol Solumedrol 2020-03 No 125mg Common 125mg/2ml 125mg/2ml 2-14 Spiri t 00:00: - CHI 00 [facility] predniSONE predniSONE 2020-03 No 2{table QD predniSONE 20 MG 20 MG 2-14 t} 20 MG 00:00: 00 Solumedrol Solumedrol 2020-03 No 125mg Common 125mg/2ml 125mg/2ml 2-14 Spiri t 00:00: - CHI 00 [facility] predniSONE predniSONE 2020-03 No 2{table QD predniSONE 20 MG 20 MG 2-14 t} 20 MG 00:00: 00 Solumedrol Solumedrol 2020-03 No 125mg Common 125mg/2ml 125mg/2ml 2-14 Spiri t 00:00: - CHI 00 [facility] predniSONE predniSONE 2020-03 No 2{table QD predniSONE 20 MG 20 MG 2-14 t} 20 MG 00:00: 00 Solumedrol Solumedrol 2020-03 No 125mg Common 125mg/2ml 125mg/2ml 2-14 Spiri t 00:00: - CHI 00 [facility] predniSONE predniSONE 2020-03 No 2{table QD predniSONE 20 MG 20 MG 2-14 t} 20 MG 00:00: 00 Solumedrol Solumedrol 2020-03 No 125mg Common 125mg/2ml 125mg/2ml 2-14 Spiri t 00:00: - CHI 00 [facility] predniSONE predniSONE 2020-03 No 2{table QD predniSONE 20 MG 20 MG 2-14 t} 20 MG 00:00: 00 Solumedrol Solumedrol 2020-03 No 125mg Common 125mg/2ml 125mg/2ml 2-14 Spiri t 00:00: - CHI 00 [facility] predniSONE predniSONE 2020-03 No 2{table QD predniSONE 20 MG 20 MG 2-14 t} 20 MG 00:00: 00 Solumedrol Solumedrol 2020-03 No 125mg Common 125mg/2ml 125mg/2ml 2-14 Spiri t 00:00: - CHI 00 [facility] predniSONE predniSONE 2020-03 No 2{table QD predniSONE 20 MG 20 MG 2-14 t} 20 MG 00:00: 00 Solumedrol Solumedrol 2020-03 No 125mg Common 125mg/2ml 125mg/2ml 2-14 Spiri t 00:00: - CHI 00 [facility] predniSONE predniSONE 2020-03 No 2{table QD predniSONE 20 MG 20 MG 2-14 t} 20 MG 00:00: 00 Solumedrol Solumedrol 2020-03 No 125mg Common 125mg/2ml 125mg/2ml 2-14 Spiri t 00:00: - CHI 00 [facility] Fluconazole Fluconazole 2020-2- No 1{table Fluconazol 200 MG 200 MG 2-14 - t} e 200 MG 00:00: 00:00 00 :00 Fluconazole Fluconazole 2020-03 2022- No 1{table Fluconazol 200 MG 200 MG 2-14 03-29 t} e 200 MG 00:00: 00:00 00 :00 clotrimazol 2020-03 Yes [id number] Apply to Univers e 1 % 2-10 area(s) 2 ity of topical 00:00: (two) [place] cream 00 times Medical daily. Branch clotrimazol 2020-03 Yes [id number] Apply to Univers e 1 % 2-10 area(s) 2 ity of topical 00:00: (two) [place] cream 00 times Medical daily. Branch clotrimazol 2020-03 Yes [id number] Apply to Univers e 1 % 2-10 area(s) 2 ity of topical 00:00: (two) [place] cream 00 times Medical daily. Branch MULTIVITAMI 2020-03 Yes Take by Uni vers N ORAL 0-20 mouth. ity of 13:51: [place] [address] Medical Branch psyllium 2020-03 Yes Take by Univer s seed, with 0-20 mouth. ity of dextrose, 13:51: [place] (FIBER 26 Medical ORAL) Branch ergocalcife 2020-03 Yes Take by Uni vers rol, 0-20 mouth. ity of vitamin D2, 13:51: [place] (VITAMIN D 26 Medical ORAL) Branch ascorbic 2020-03 Yes Take by Univer s acid 0-20 mouth. ity of (VITAMIN C 13:51: [place] ORAL) Medical Branch MULTIVITAMI 2020-03 Yes Take by Uni vers N ORAL 0-20 mouth. ity of 13:51: [place] [address] Medical Branch psyllium 2020-03 Yes Take by Univer s seed, with 0-20 mouth. ity of dextrose, 13:51: [place] (FIBER 26 Medical ORAL) Branch ergocalcife 2020-03 Yes Take by Uni vers rol, 0-20 mouth. ity of vitamin D2, 13:51: [place] (VITAMIN D 26 Medical ORAL) Branch ascorbic 2020-03 Yes Take by Univer s acid 0-20 mouth. ity of (VITAMIN C 13:51: [place] ORAL) Medical Branch MULTIVITAMI 2020-03 Yes Take by Uni vers N ORAL 0-20 mouth. ity of 13:51: [place] [address] Medical Branch psyllium 2020-03 Yes Take by Univer s seed, with 0-20 mouth. ity of dextrose, 13:51: [place] (FIBER 26 Medical ORAL) Branch ergocalcife 2020-03 Yes Take by Uni vers rol, 0-20 mouth. ity of vitamin D2, 13:51: [place] (VITAMIN D Medical ORAL) Branch ascorbic 2020-03 Yes Take by Univer s acid 0-20 mouth. ity of (VITAMIN C 13:51: [place] ORAL) 26 Medical Branch triamcinolo 2020-03 Yes [id number] Apply to Univers ne 0-20 area(s) 2 ity of acetonide 00:00: (two) [place] 0.1 % 00 times Medical ointment daily. Branch hydrOXYzine 2020-03 Yes [id number] 50mg Take 2 Univers 25 mg 0-20 capsules ity of capsule 00:00: by mouth [place] 00 daily. Medical Branch triamcinolo 2020-03 Yes [id number] Apply to Univers ne 0-20 area(s) 2 ity of acetonide 00:00: (two) [place] 0.1 % 00 times Medical ointment daily. Branch hydrOXYzine 2020-03 Yes [id number] 50mg Take 2 Univers 25 mg 0-20 capsules ity of capsule 00:00: by mouth [place] 00 daily. Medical Branch triamcinolo 2020-03 Yes [id number] Apply to Univers ne 0-20 area(s) 2 ity of acetonide 00:00: (two) [place] 0.1 % 00 times Medical ointment daily. Branch hydrOXYzine 2020-03 Yes [id number] 50mg Take 2 Univers 25 mg 0-20 capsules ity of capsule 00:00: by mouth [place] 00 daily. Medical Branch levothyroxi 2020-03 Yes TAKE 1 Univ ers ne 125 mcg 0-01 TABLET BY ity of tablet 00:00: MOUTH [place] 00 EVERY DAY Medical IN THE Branch MORNING ON AN EMPTY STOMACH levothyroxi 2020-03 Yes TAKE 1 Univ ers ne 125 mcg 0-01 TABLET BY ity of tablet 00:00: MOUTH [place] 00 EVERY DAY Medical IN THE Branch MORNING ON AN EMPTY STOMACH levothyroxi 2020-03 Yes TAKE 1 Univ ers ne 125 mcg 0-01 TABLET BY ity of tablet 00:00: MOUTH [place] 00 EVERY DAY Medical IN THE Branch MORNING ON AN EMPTY STOMACH Gentamicin Gentamicin 2020-0 No 160mg Common 80mg 80mg 818 Spirit 00:00: - [facility] Gentamicin Gentamicin 2020-0 No 160mg Common 80mg 80mg 11-01 Spirit 00:00: - [facility] Gentamicin Gentamicin 2020-0 No 160mg Common 80mg 80mg 11-01 Spirit 00:00: - [facility] Gentamicin Gentamicin 2020-0 No 160mg Common 80mg 80mg 8 Spirit 00:00: - [facility] Gentamicin Gentamicin 2020-0 No 160mg Common 80mg 80mg 11-01 Spirit 00:00: - [facility] Gentamicin Gentamicin 2020-0 No 160mg Common 80mg 80mg 11-01 Spirit 00:00: - [facility] Gentamicin Gentamicin 2020-0 No 160mg Common 80mg 80mg 11-01 Spirit 00:00: - [facility] Gentamicin Gentamicin 2020-0 No 160mg Common 80mg 80mg 11-01 Spirit 00:00: - [facility] Gentamicin Gentamicin 2020-0 No 160mg Common 80mg 80mg 11-01 Spirit 00:00: - [facility] Gentamicin Gentamicin 2020-0 No 160mg Common 80mg 80mg 11-01 Spirit 00:00: - [facility] Gentamicin Gentamicin 2020-0 No 160mg Common 80mg 80mg 11-01 Spirit 00:00: - [facility] Gentamicin Gentamicin 2020-0 No 160mg Common 80mg 80mg 11-01 Spirit 00:00: - [facility] Gentamicin Gentamicin 2020-0 No 160mg Common 80mg 80mg 11-01 Spirit 00:00: - [facility] Gentamicin Gentamicin 2020-0 No 160mg Common 80mg 80mg 18 Spirit 00:00: - [facility] Gentamicin Gentamicin 2020-0 No 160mg Common 80mg 80mg 11-01 Spirit 00:00: - [facility] Triamcinolo Triamcinolo 2020-0 No 1{appli BID Triamcinol ne ne 7-02 cation} one Acetonide Acetonide 00:00: Acetonide 0.1 % 0.1 % 00 0.1 % Triamcinolo Triamcinolo 2020-0 No 1{appli BID Triamcinol ne ne 7-02 cation} one Acetonide Acetonide 00:00: Acetonide 0.1 % 0.1 % 00 0.1 % Triamcinolo Triamcinolo 2020-0 No 1{appli BID Triamcinol ne ne 7-02 cation} one Acetonide Acetonide 00:00: Acetonide 0.1 % 0.1 % 00 0.1 % Triamcinolo Triamcinolo 2020-0 No 1{appli BID Triamcinol ne ne 7-02 cation} one Acetonide Acetonide 00:00: Acetonide 0.1 % 0.1 % 00 0.1 % Triamcinolo Triamcinolo 2020-0 No 1{appli BID Triamcinol ne ne 7-02 cation} one Acetonide Acetonide 00:00: Acetonide 0.1 % 0.1 % 00 0.1 % Triamcinolo Triamcinolo 2020-0 No 1{appli BID Triamcinol ne ne 7-02 cation} one Acetonide Acetonide 00:00: Acetonide 0.1 % 0.1 % 00 0.1 % Triamcinolo Triamcinolo 2020-0 No 1{appli BID Triamcinol ne ne 7-02 cation} one Acetonide Acetonide 00:00: Acetonide 0.1 % 0.1 % 00 0.1 % Triamcinolo Triamcinolo 2020-0 No 1{appli BID Triamcinol ne ne 7-02 cation} one Acetonide Acetonide 00:00: Acetonide 0.1 % 0.1 % 00 0.1 % Triamcinolo Triamcinolo 2020-0 No 1{appli BID Triamcinol ne ne 7-02 cation} one Acetonide Acetonide 00:00: Acetonide 0.1 % 0.1 % 00 0.1 % Triamcinolo Triamcinolo 2020-0 No 1{appli BID Triamcinol ne ne 7-02 cation} one Acetonide Acetonide 00:00: Acetonide 0.1 % 0.1 % 00 0.1 % Triamcinolo Triamcinolo 2020-0 No 1{appli BID Triamcinol ne ne 7-02 cation} one Acetonide Acetonide 00:00: Acetonide 0.1 % 0.1 % 00 0.1 % Triamcinolo Triamcinolo 2020-0 No 1{appli BID Triamcinol ne ne 7-02 cation} one Acetonide Acetonide 00:00: Acetonide 0.1 % 0.1 % 00 0.1 % Triamcinolo Triamcinolo 2020-0 No 1{appli BID Triamcinol ne ne 7-02 cation} one Acetonide Acetonide 00:00: Acetonide 0.1 % 0.1 % 00 0.1 % Triamcinolo Triamcinolo 2020-0 No 1{appli BID Triamcinol ne ne 7-02 cation} one Acetonide Acetonide 00:00: Acetonide 0.1 % 0.1 % 00 0.1 % Triamcinolo Triamcinolo 2020-0 No 1{appli BID Triamcinol ne ne 7-02 cation} one Acetonide Acetonide 00:00: Acetonide 0.1 % 0.1 % 00 0.1 % Triamcinolo Triamcinolo 2020-0 No 1{appli BID Triamcinol ne ne 7-02 cation} one Acetonide Acetonide 00:00: Acetonide 0.1 % 0.1 % 00 0.1 % Triamcinolo Triamcinolo 2020-0 No 1{appli BID Triamcinol ne ne 7-02 cation} one Acetonide Acetonide 00:00: Acetonide 0.1 % 0.1 % 00 0.1 % Triamcinolo Triamcinolo 2020-0 No 1{appli BID Triamcinol ne ne 7-02 cation} one Acetonide Acetonide 00:00: Acetonide 0.1 % 0.1 % 00 0.1 % Triamcinolo Triamcinolo 2020-0 No 1{appli BID Triamcinol ne ne 7-02 cation} one Acetonide Acetonide 00:00: Acetonide 0.1 % 0.1 % 00 0.1 % Triamcinolo Triamcinolo 2020-0 No 1{appli BID Triamcinol ne ne 7-02 cation} one Acetonide Acetonide 00:00: Acetonide 0.1 % 0.1 % 00 0.1 % Triamcinolo Triamcinolo 2020-0 No 1{appli BID Triamcinol ne ne 7-02 cation} one Acetonide Acetonide 00:00: Acetonide 0.1 % 0.1 % 00 0.1 % Triamcinolo Triamcinolo 2020-0 No 1{appli BID Triamcinol ne ne 7-02 cation} one Acetonide Acetonide 00:00: Acetonide 0.1 % 0.1 % 00 0.1 % Triamcinolo Triamcinolo 2020-0 No 1{appli BID Triamcinol ne ne 7-02 cation} one Acetonide Acetonide 00:00: Acetonide 0.1 % 0.1 % 00 0.1 % Triamcinolo Triamcinolo 2020-0 No 1{appli BID Triamcinol ne ne 7-02 cation} one Acetonide Acetonide 00:00: Acetonide 0.1 % 0.1 % 00 0.1 % Triamcinolo Triamcinolo 2020-0 No 1{appli BID Triamcinol ne ne 7-02 cation} one Acetonide Acetonide 00:00: Acetonide 0.1 % 0.1 % 00 0.1 % Triamcinolo Triamcinolo 2020-0 No 1{appli BID Triamcinol ne ne 7-02 cation} one Acetonide Acetonide 00:00: Acetonide 0.1 % 0.1 % 00 0.1 % Triamcinolo Triamcinolo 2020-0 No 1{appli BID Triamcinol ne ne 7-02 cation} one Acetonide Acetonide 00:00: Acetonide 0.1 % 0.1 % 00 0.1 % Toradol Toradol 2020-0 No 60mg Common (Ketorolac) (Ketorolac) 4-23 S pirit 00:00: - [facility] Toradol Toradol 2020-0 No 60mg Common (Ketorolac) (Ketorolac) 4-23 S pirit 00:00: - [facility] Toradol Toradol 2020-0 No 60mg Common (Ketorolac) (Ketorolac) 4-23 S pirit 00:00: - [facility] Toradol Toradol 2020-0 No 60mg Common (Ketorolac) (Ketorolac) 4-23 S pirit 00:00: - [facility] Toradol Toradol 2020-0 No 60mg Common (Ketorolac) (Ketorolac) 4-23 S pirit 00:00: - [facility] Toradol Toradol 2020-0 No 60mg Common (Ketorolac) (Ketorolac) 4-23 S pirit 00:00: - [facility] Toradol Toradol 2020-0 No 60mg Common (Ketorolac) (Ketorolac) 4-23 S pirit 00:00: - [facility] Toradol Toradol 2020-0 No 60mg Common (Ketorolac) (Ketorolac) 4-23 S pirit 00:00: - [facility] Toradol Toradol 2020-0 No 60mg Common (Ketorolac) (Ketorolac) 4-23 S pirit 00:00: - [facility] Toradol Toradol 2020-0 No 60mg Common (Ketorolac) (Ketorolac) 4-23 S pirit 00:00: - [facility] Toradol Toradol 2020-0 No 60mg Common (Ketorolac) (Ketorolac) 4-23 S pirit 00:00: - [facility] Toradol Toradol 2020-0 No 60mg Common (Ketorolac) (Ketorolac) 4-23 S pirit 00:00: - [facility] Toradol Toradol 2020-0 No 60mg Common (Ketorolac) (Ketorolac) 4-23 S pirit 00:00: - [facility] Toradol Toradol 2020-0 No 60mg Common (Ketorolac) (Ketorolac) 4-23 S pirit 00:00: - [facility] Toradol Toradol 2020-0 No 60mg Common (Ketorolac) (Ketorolac) 4-23 S pirit 00:00: - [facility] Toradol Toradol 2020-0 No 60mg Common (Ketorolac) (Ketorolac) 4-13 S pirit 00:00: - [facility] Toradol Toradol 2020-0 No 60mg Common (Ketorolac) (Ketorolac) 4-13 S pirit 00:00: - [facility] Toradol Toradol 2020-0 No 60mg Common (Ketorolac) (Ketorolac) 4-13 S pirit 00:00: - [facility] Toradol Toradol 2020-0 No 60mg Common (Ketorolac) (Ketorolac) 4-13 S pirit 00:00: - [facility] Toradol Toradol 2020-0 No 60mg Common (Ketorolac) (Ketorolac) 4-13 S pirit 00:00: - [facility] Toradol Toradol 2020-0 No 60mg Common (Ketorolac) (Ketorolac) 4-13 S pirit 00:00: - [facility] Toradol Toradol 2020-0 No 60mg Common (Ketorolac) (Ketorolac) 4-13 S pirit 00:00: - [facility] Toradol Toradol 2020-0 No 60mg Common (Ketorolac) (Ketorolac) 4-13 S pirit 00:00: - [facility] Toradol Toradol 2020-0 No 60mg Common (Ketorolac) (Ketorolac) 4-13 S pirit 00:00: - [facility] Toradol Toradol 2020-0 No 60mg Common (Ketorolac) (Ketorolac) 4-13 S pirit 00:00: - [facility] Toradol Toradol 2020-0 No 60mg Common (Ketorolac) (Ketorolac) 4-13 S pirit 00:00: - [facility] Toradol Toradol 2020-0 No 60mg Common (Ketorolac) (Ketorolac) 4-13 S pirit 00:00: - [facility] Toradol Toradol 2020-0 No 60mg Common (Ketorolac) (Ketorolac) 4-13 S pirit 00:00: - [facility] Toradol Toradol 2020-0 No 60mg Common (Ketorolac) (Ketorolac) 4-13 S pirit 00:00: - [facility] Toradol Toradol 2020-0 No 60mg Common (Ketorolac) (Ketorolac) 4-13 S pirit 00:00: - [facility] Levothyroxi Levothyroxi 2018-03 No QD Levothyrox ne Sodium ne Sodium 1-22 ine Sodium 137 MCG 137 MCG 00:00: 137 MCG 00 Levothyroxi Levothyroxi 2018-03 No QD Levothyrox ne Sodium ne Sodium 1-22 ine Sodium 125 MCG 125 MCG 00:00: 125 MCG 00 Levothyroxi Levothyroxi 2018-03 No QD Levothyrox ne Sodium ne Sodium 1-22 ine Sodium 125 MCG 125 MCG 00:00: 125 MCG 00 Levothyroxi Levothyroxi 2018-03 No QD Levothyrox ne Sodium ne Sodium 1-22 ine Sodium 125 MCG 125 MCG 00:00: 125 MCG 00 Levothyroxi Levothyroxi 2018-03 No QD Levothyrox ne Sodium ne Sodium 1-22 ine Sodium 125 MCG 125 MCG 00:00: 125 MCG 00 Levothyroxi Levothyroxi 2018-03 No QD Levothyrox ne Sodium ne Sodium 1-22 ine Sodium 125 MCG 125 MCG 00:00: 125 MCG 00 Levothyroxi Levothyroxi 2018-03 No QD Levothyrox ne Sodium ne Sodium 1-22 ine Sodium 125 MCG 125 MCG 00:00: 125 MCG 00 Levothyroxi Levothyroxi 2018-03 No QD Levothyrox ne Sodium ne Sodium 1-22 ine Sodium 125 MCG 125 MCG 00:00: 125 MCG 00 Levothyroxi Levothyroxi 2018-03 No QD Levothyrox ne Sodium ne Sodium 1-22 ine Sodium 125 MCG 125 MCG 00:00: 125 MCG 00 Levothyroxi Levothyroxi 2018-03 No QD Levothyrox ne Sodium ne Sodium 1-22 ine Sodium 125 MCG 125 MCG 00:00: 125 MCG 00 Levothyroxi Levothyroxi 2018-03 No QD Levothyrox ne Sodium ne Sodium 1-22 ine Sodium 125 MCG 125 MCG 00:00: 125 MCG 00 Levothyroxi Levothyroxi 2018-03 No QD Levothyrox ne Sodium ne Sodium 1-22 ine Sodium 125 MCG 125 MCG 00:00: 125 MCG 00 Levothyroxi Levothyroxi 2018-03 No QD Levothyrox ne Sodium ne Sodium 1-22 ine Sodium 125 MCG 125 MCG 00:00: 125 MCG 00 Levothyroxi Levothyroxi 2018-03 No QD Levothyrox ne Sodium ne Sodium 1-22 ine Sodium 125 MCG 125 MCG 00:00: 125 MCG 00 Levothyroxi Levothyroxi 2018-03 No QD Levothyrox ne Sodium ne Sodium 1-22 ine Sodium 125 MCG 125 MCG 00:00: 125 MCG 00 Levothyroxi Levothyroxi 2018-03 No QD Levothyrox ne Sodium ne Sodium 1-22 ine Sodium 137 MCG 137 MCG 00:00: 137 MCG 00 Levothyroxi Levothyroxi 2018-03 No QD Levothyrox ne Sodium ne Sodium 1-22 ine Sodium 137 MCG 137 MCG 00:00: 137 MCG 00 Levothyroxi Levothyroxi 2018-03 No QD Levothyrox ne Sodium ne Sodium 1-22 ine Sodium 137 MCG 137 MCG 00:00: 137 MCG 00 Levothyroxi Levothyroxi 2018-03 No QD Levothyrox ne Sodium ne Sodium 1-22 ine Sodium 137 MCG 137 MCG 00:00: 137 MCG 00 Levothyroxi Levothyroxi 2018-03 No QD Levothyrox ne Sodium ne Sodium 1-22 ine Sodium 137 MCG 137 MCG 00:00: 137 MCG 00 Levothyroxi Levothyroxi 2018-03 No QD Levothyrox ne Sodium ne Sodium 1-22 ine Sodium 137 MCG 137 MCG 00:00: 137 MCG 00 Levothyroxi Levothyroxi 2018-03 No QD Levothyrox ne Sodium ne Sodium 1-22 ine Sodium 137 MCG 137 MCG 00:00: 137 MCG 00 Levothyroxi Levothyroxi 2018-03 No QD Levothyrox ne Sodium ne Sodium 1-22 ine Sodium 137 MCG 137 MCG 00:00: 137 MCG 00 Levothyroxi Levothyroxi 2018-03 No QD Levothyrox ne Sodium ne Sodium 1-22 ine Sodium 137 MCG 137 MCG 00:00: 137 MCG 00 Levothyroxi Levothyroxi 2018-03 No QD Levothyrox ne Sodium ne Sodium 1-22 ine Sodium 137 MCG 137 MCG 00:00: 137 MCG 00 Levothyroxi Levothyroxi 2018-03 No QD Levothyrox ne Sodium ne Sodium 1-22 ine Sodium 137 MCG 137 MCG 00:00: 137 MCG 00 Fluticasone Fluticasone 2018- Yes Radha 1 spray in Common Propionate Propionate 6-10 [place] each Sp sweetie 00:00: nostril - [facility] Fluticasone Fluticasone No 1{spray BID Fluticason Propionate Propionate 6-10 _in_eac e 50 MCG/ACT 50 MCG/ACT 00:00: h_nostr Propionate 00 il} 50 MCG/ACT Fluticasone Fluticasone No 1{spray BID Fluticason Propionate Propionate 6-10 _in_eac e 50 MCG/ACT 50 MCG/ACT 00:00: h_nostr Propionate 00 il} 50 MCG/ACT Fluticasone Fluticasone No 1{spray BID Fluticason Propionate Propionate 6-10 _in_eac e 50 MCG/ACT 50 MCG/ACT 00:00: h_nostr Propionate 00 il} 50 MCG/ACT Fluticasone Fluticasone No 1{spray BID Fluticason Propionate Propionate 6-10 _in_eac e 50 MCG/ACT 50 MCG/ACT 00:00: h_nostr Propionate 00 il} 50 MCG/ACT Wal-Zyr 10 Wal-Zyr 10 No 1{capsu QD Wal-Zyr 10 MG MG le} MG Vitamin D Vitamin D No 1{capsu QD Vitamin D 50 MCG 50 MCG le} 50 MCG (1999 UT) (1999 UT) (1999) Fiber - Fiber - No Fiber - Fluticasone Fluticasone No Fluticason Propionate Propionate e 50 MCG/ACT 50 MCG/ACT Propionate 50 MCG/ACT Vitamin C Vitamin C No 1{table QD Vitamin C 1000 MG 1000 MG t} 1000 MG Clotrimazol Clotrimazol No 1{appli BID Clotrimazo e 1 % e 1 % cation} le 1 % L-Lysine L-Lysine No L-Lysine 500 MG 500 MG 500 MG ProAir HFA ProAir HFA No 1{puff_ 6xD ProAir HFA 108 (90 108 (90 as_need 108 (90 Base) Base) ed} Base) MCG/ACT MCG/ACT MCG/ACT Omeprazole Omeprazole No 1{capsu QD Omeprazole 40 MG 40 MG le} 40 MG L-Lysine L-Lysine No L-Lysine 500 MG 500 MG 500 MG Fiber - Fiber - No Fiber - Biotin Biotin No 1{table QD Biotin 40578 MCG 95924 MCG t} 86815 MCG Omeprazole Omeprazole No 1{capsu QD Omeprazole 40 MG 40 MG le} 40 MG ProAir ProAir No 2{puffs QID ProAir RespiClick RespiClick _as_nee RespiClick 108 (90 108 (90 ded} 108 (90 Base) Base) Base) MCG/ACT MCG/ACT MCG/ACT Vitamin C Vitamin C No 1{table QD Vitamin C 1000 MG 1000 MG t} 1000 MG Milk Milk No Milk Thistle 250 Thistle 250 Thistle MG MG 250 MG Wal-Zyr 10 Wal-Zyr 10 No 1{capsu QD Wal-Zyr 10 MG MG le} MG Vitamin D Vitamin D No 1{capsu QD Vitamin D 50 MCG 50 MCG le} 50 MCG (1999) (1999 UT) (1999 UT) L-Lysine L-Lysine No L-Lysine 500 MG 500 MG 500 MG Fiber - Fiber - No Fiber - Biotin Biotin No 1{table QD Biotin 56814 MCG 26350 MCG t} 34789 MCG Omeprazole Omeprazole No 1{capsu QD Omeprazole 40 MG 40 MG le} 40 MG ProAir ProAir No 2{puffs QID ProAir RespiClick RespiClick _as_nee RespiClick 108 (90 108 (90 ded} 108 (90 Base) Base) Base) MCG/ACT MCG/ACT MCG/ACT Vitamin C Vitamin C No 1{table QD Vitamin C 1000 MG 1000 MG t} 1000 MG Milk Milk No Milk Thistle 250 Thistle 250 Thistle MG MG 250 MG Wal-Zyr 10 Wal-Zyr 10 No 1{capsu QD Wal-Zyr 10 MG MG le} MG Vitamin D Vitamin D No 1{capsu QD Vitamin D 50 MCG 50 MCG le} 50 MCG (1999) (1999 UT) (1999 UT) L-Lysine L-Lysine No L-Lysine 500 MG 500 MG 500 MG Fiber - Fiber - No Fiber - Biotin Biotin No 1{table QD Biotin 99868 MCG 54572 MCG t} 48236 MCG Omeprazole Omeprazole No 1{capsu QD Omeprazole 40 MG 40 MG le} 40 MG ProAir ProAir No 2{puffs QID ProAir RespiClick RespiClick _as_nee RespiClick 108 (90 108 (90 ded} 108 (90 Base) Base) Base) MCG/ACT MCG/ACT MCG/ACT Vitamin C Vitamin C No 1{table QD Vitamin C 1000 MG 1000 MG t} 1000 MG Milk Milk No Milk Thistle 250 Thistle 250 Thistle MG MG 250 MG Wal-Zyr 10 Wal-Zyr 10 No 1{capsu QD Wal-Zyr 10 MG MG le} MG Vitamin D Vitamin D No 1{capsu QD Vitamin D 50 MCG 50 MCG le} 50 MCG (1999) (1999) (1999 [facility]) L-Lysine L-Lysine No L-Lysine 500 MG 500 MG 500 MG Fiber - Fiber - No Fiber - Biotin Biotin No 1{table QD Biotin 13715 MCG 44360 MCG t} 31009 MCG Omeprazole Omeprazole No 1{capsu QD Omeprazole 40 MG 40 MG le} 40 MG ProAir ProAir No 2{puffs QID ProAir RespiClick RespiClick _as_nee RespiClick 108 (90 108 (90 ded} 108 (90 Base) Base) Base) MCG/ACT MCG/ACT MCG/ACT Vitamin C Vitamin C No 1{table QD Vitamin C 1000 MG 1000 MG t} 1000 MG Milk Milk No Milk Thistle 250 Thistle 250 Thistle MG MG 250 MG Wal-Zyr 10 Wal-Zyr 10 No 1{capsu QD Wal-Zyr 10 MG MG le} MG Vitamin D Vitamin D No 1{capsu QD Vitamin D 50 MCG 50 MCG le} 50 MCG (1999) (1999) (1999 UT) Milk Milk No Milk Thistle 250 Thistle 250 Thistle MG MG 250 MG L-Lysine L-Lysine No L-Lysine 500 MG 500 MG 500 MG Vitamin D Vitamin D No 1{capsu QD Vitamin D 50 MCG 50 MCG le} 50 MCG (1999) (1999) (1999 [facility]) Omeprazole Omeprazole No 1{capsu QD Omeprazole 40 MG 40 MG le} 40 MG Fluticasone Fluticasone No Fluticason Propionate Propionate e 50 MCG/ACT 50 MCG/ACT Propionate 50 MCG/ACT Vitamin C Vitamin C No 1{table QD Vitamin C 1000 MG 1000 MG t} 1000 MG Wal-Zyr 10 Wal-Zyr 10 No 1{capsu QD Wal-Zyr 10 MG MG le} MG ProAir ProAir No 2{puffs QID ProAir RespiClick RespiClick _as_nee RespiClick 108 (90 108 (90 ded} 108 (90 Base) Base) Base) MCG/ACT MCG/ACT MCG/ACT Fiber - Fiber - No Fiber - Biotin Biotin No 1{table QD Biotin 63824 MCG 08559 MCG t} 17980 MCG Milk Milk No Milk Thistle 250 Thistle 250 Thistle MG MG 250 MG L-Lysine L-Lysine No L-Lysine 500 MG 500 MG 500 MG Vitamin D Vitamin D No 1{capsu QD Vitamin D 50 MCG 50 MCG le} 50 MCG (1999) (1999) (1999) Omeprazole Omeprazole No 1{capsu QD Omeprazole 40 MG 40 MG le} 40 MG Fluticasone Fluticasone No Fluticason Propionate Propionate e 50 MCG/ACT 50 MCG/ACT Propionate 50 MCG/ACT Vitamin C Vitamin C No 1{table QD Vitamin C 1000 MG 1000 MG t} 1000 MG Wal-Zyr 10 Wal-Zyr 10 No 1{capsu QD Wal-Zyr 10 MG MG le} MG ProAir ProAir No 2{puffs QID ProAir RespiClick RespiClick _as_nee RespiClick 108 (90 108 (90 ded} 108 (90 Base) Base) Base) MCG/ACT MCG/ACT MCG/ACT Fiber - Fiber - No Fiber - Biotin Biotin No 1{table QD Biotin 06621 MCG 31078 MCG t} 95044 MCG Milk Milk No Milk Thistle 250 Thistle 250 Thistle MG MG 250 MG L-Lysine L-Lysine No L-Lysine 500 MG 500 MG 500 MG Vitamin D Vitamin D No 1{capsu QD Vitamin D 50 MCG 50 MCG le} 50 MCG (1999) (1999) (1999) Omeprazole Omeprazole No 1{capsu QD Omeprazole 40 MG 40 MG le} 40 MG Fluticasone Fluticasone No Fluticason Propionate Propionate e 50 MCG/ACT 50 MCG/ACT Propionate 50 MCG/ACT Vitamin C Vitamin C No 1{table QD Vitamin C 1000 MG 1000 MG t} 1000 MG Wal-Zyr 10 Wal-Zyr 10 No 1{capsu QD Wal-Zyr 10 MG MG le} MG ProAir ProAir No 2{puffs QID ProAir RespiClick RespiClick _as_nee RespiClick 108 (90 108 (90 ded} 108 (90 Base) Base) Base) MCG/ACT MCG/ACT MCG/ACT Fiber - Fiber - No Fiber - Biotin Biotin No 1{table QD Biotin 13794 MCG 76179 MCG t} 22461 MCG L-Lysine L-Lysine No L-Lysine 500 MG 500 MG 500 MG Milk Milk No Milk Thistle 250 Thistle 250 Thistle MG MG 250 MG Wal-Zyr 10 Wal-Zyr 10 No 1{capsu QD Wal-Zyr 10 MG MG le} MG Fluticasone Fluticasone No Fluticason Propionate Propionate e 50 MCG/ACT 50 MCG/ACT Propionate 50 MCG/ACT Omeprazole Omeprazole No 1{capsu QD Omeprazole 40 MG 40 MG le} 40 MG Vitamin D Vitamin D No 1{capsu QD Vitamin D 50 MCG 50 MCG le} 50 MCG (1999) (1999) (1999) Fiber - Fiber - No Fiber - Biotin Biotin No 1{table QD Biotin 09984 MCG 64104 MCG t} 81187 MCG ProAir ProAir No 2{puffs QID ProAir RespiClick RespiClick _as_nee RespiClick 108 (90 108 (90 ded} 108 (90 Base) Base) Base) MCG/ACT MCG/ACT MCG/ACT Vitamin C Vitamin C No 1{table QD Vitamin C 1000 MG 1000 MG t} 1000 MG L-Lysine L-Lysine No L-Lysine 500 MG 500 MG 500 MG Milk Milk No Milk Thistle 250 Thistle 250 Thistle MG MG 250 MG Wal-Zyr 10 Wal-Zyr 10 No 1{capsu QD Wal-Zyr 10 MG MG le} MG Fluticasone Fluticasone No Fluticason Propionate Propionate e 50 MCG/ACT 50 MCG/ACT Propionate 50 MCG/ACT Omeprazole Omeprazole No 1{capsu QD Omeprazole 40 MG 40 MG le} 40 MG Vitamin D Vitamin D No 1{capsu QD Vitamin D 50 MCG 50 MCG le} 50 MCG (1999) (1999 UT) (1999) Fiber - Fiber - No Fiber - Biotin Biotin No 1{table QD Biotin 54478 MCG 35585 MCG t} 29631 MCG ProAir ProAir No 2{puffs QID ProAir RespiClick RespiClick _as_nee RespiClick 108 (90 108 (90 ded} 108 (90 Base) Base) Base) MCG/ACT MCG/ACT MCG/ACT Vitamin C Vitamin C No 1{table QD Vitamin C 1000 MG 1000 MG t} 1000 MG Omeprazole Omeprazole No 1{capsu QD Omeprazole 40 MG 40 MG le} 40 MG Vitamin C Vitamin C No 1{table QD Vitamin C 1000 MG 1000 MG t} 1000 MG Milk Milk No Milk Thistle 250 Thistle 250 Thistle MG MG 250 MG Clotrimazol Clotrimazol No 1{appli BID Clotrimazo e 1 % e 1 % cation} le 1 % ProAir ProAir No 2{puffs QID ProAir RespiClick RespiClick _as_nee RespiClick 108 (90 108 (90 ded} 108 (90 Base) Base) Base) MCG/ACT MCG/ACT MCG/ACT Vitamin D Vitamin D No 1{capsu QD Vitamin D 50 MCG 50 MCG le} 50 MCG (1999) (1999) (1999) L-Lysine L-Lysine No L-Lysine 500 MG 500 MG 500 MG Fluticasone Fluticasone No Fluticason Propionate Propionate e 50 MCG/ACT 50 MCG/ACT Propionate 50 MCG/ACT Biotin Biotin No 1{table QD Biotin 27957 MCG 46284 MCG t} 14325 MCG Fiber - Fiber - No Fiber - Wal-Zyr 10 Wal-Zyr 10 No 1{capsu QD Wal-Zyr 10 MG MG le} MG Omeprazole Omeprazole No 1{capsu QD Omeprazole 40 MG 40 MG le} 40 MG Vitamin C Vitamin C No 1{table QD Vitamin C 1000 MG 1000 MG t} 1000 MG Wal-Zyr 10 Wal-Zyr 10 No 1{capsu QD Wal-Zyr 10 MG MG le} MG ProAir ProAir No 2{puffs QID ProAir RespiClick RespiClick _as_nee RespiClick 108 (90 108 (90 ded} 108 (90 Base) Base) Base) MCG/ACT MCG/ACT MCG/ACT Vitamin D Vitamin D No 1{capsu QD Vitamin D 50 MCG 50 MCG le} 50 MCG (1999) (1999) (1999) Biotin Biotin No 1{table QD Biotin 07764 MCG 20615 MCG t} 32028 MCG Clotrimazol Clotrimazol No 1{appli BID Clotrimazo e 1 % e 1 % cation} le 1 % L-Lysine L-Lysine No L-Lysine 500 MG 500 MG 500 MG Milk Milk No Milk Thistle 250 Thistle 250 Thistle MG MG 250 MG Fluticasone Fluticasone No Fluticason Propionate Propionate e 50 MCG/ACT 50 MCG/ACT Propionate 50 MCG/ACT Fiber - Fiber - No Fiber - Clotrimazol Clotrimazol No 1{appli BID Clotrimazo e 1 % e 1 % cation} le 1 % Wal-Zyr 10 Wal-Zyr 10 No 1{capsu QD Wal-Zyr 10 MG MG le} MG ProAir ProAir No 2{puffs QID ProAir RespiClick RespiClick _as_nee RespiClick 108 (90 108 (90 ded} 108 (90 Base) Base) Base) MCG/ACT MCG/ACT MCG/ACT Vitamin D Vitamin D No 1{capsu QD Vitamin D 50 MCG 50 MCG le} 50 MCG (1999) (1999) (1999) Biotin Biotin No 1{table QD Biotin 20183 MCG 19554 MCG t} 02951 MCG Fluticasone Fluticasone No Fluticason Propionate Propionate e 50 MCG/ACT 50 MCG/ACT Propionate 50 MCG/ACT L-Lysine L-Lysine No L-Lysine 500 MG 500 MG 500 MG Vitamin C Vitamin C No 1{table QD Vitamin C 1000 MG 1000 MG t} 1000 MG Milk Milk No Milk Thistle 250 Thistle 250 Thistle MG MG 250 MG Fiber - Fiber - No Fiber - Omeprazole Omeprazole No 1{capsu QD Omeprazole 40 MG 40 MG le} 40 MG Vitamin C Vitamin C No 1{table QD Vitamin C 1000 MG 1000 MG t} 1000 MG Clotrimazol Clotrimazol No 1{appli BID Clotrimazo e 1 % e 1 % cation} le 1 % Wal-Zyr 10 Wal-Zyr 10 No 1{capsu QD Wal-Zyr 10 MG MG le} MG ProAir ProAir No 2{puffs QID ProAir RespiClick RespiClick _as_nee RespiClick 108 (90 108 (90 ded} 108 (90 Base) Base) Base) MCG/ACT MCG/ACT MCG/ACT Biotin Biotin No 1{table QD Biotin 12635 MCG 71637 MCG t} 66794 MCG Milk Milk No Milk Thistle 250 Thistle 250 Thistle MG MG 250 MG Fluticasone Fluticasone No Fluticason Propionate Propionate e 50 MCG/ACT 50 MCG/ACT Propionate 50 MCG/ACT Vitamin D Vitamin D No 1{capsu QD Vitamin D 50 MCG 50 MCG le} 50 MCG (1999) (1999) (1999 [facility]) L-Lysine L-Lysine No L-Lysine 500 MG 500 MG 500 MG Omeprazole Omeprazole No 1{capsu QD Omeprazole 40 MG 40 MG le} 40 MG Fiber - Fiber - No Fiber - Fluticasone Fluticasone No Fluticason Propionate Propionate e 50 MCG/ACT 50 MCG/ACT Propionate 50 MCG/ACT ProAir ProAir No 2{puffs QID ProAir RespiClick RespiClick _as_nee RespiClick 108 (90 108 (90 ded} 108 (90 Base) Base) Base) MCG/ACT MCG/ACT MCG/ACT Biotin Biotin No 1{table QD Biotin 72581 MCG 03225 MCG t} 62650 MCG Milk Milk No Milk Thistle 250 Thistle 250 Thistle MG MG 250 MG L-Lysine L-Lysine No L-Lysine 500 MG 500 MG 500 MG Vitamin D Vitamin D No 1{capsu QD Vitamin D 50 MCG 50 MCG le} 50 MCG (1999) (1999) (1999) Vitamin C Vitamin C No 1{table QD Vitamin C 1000 MG 1000 MG t} 1000 MG Clotrimazol Clotrimazol No 1{appli BID Clotrimazo e 1 % e 1 % cation} le 1 % Fiber - Fiber - No Fiber - Omeprazole Omeprazole No 1{capsu QD Omeprazole 40 MG 40 MG le} 40 MG Wal-Zyr 10 Wal-Zyr 10 No 1{capsu QD Wal-Zyr 10 MG MG le} MG Vitamin D Vitamin D No 1{capsu QD Vitamin D 50 MCG 50 MCG le} 50 MCG (1999) (1999) (1999) L-Lysine L-Lysine No L-Lysine 500 MG 500 MG 500 MG Fiber - Fiber - No Fiber - Wal-Zyr 10 Wal-Zyr 10 No 1{capsu QD Wal-Zyr 10 MG MG le} MG Clotrimazol Clotrimazol No 1{appli BID Clotrimazo e 1 % e 1 % cation} le 1 % Omeprazole Omeprazole No 1{capsu QD Omeprazole 40 MG 40 MG le} 40 MG ProAir ProAir No 2{puffs QID ProAir RespiClick RespiClick _as_nee RespiClick 108 (90 108 (90 ded} 108 (90 Base) Base) Base) MCG/ACT MCG/ACT MCG/ACT Fluticasone Fluticasone No Fluticason Propionate Propionate e 50 MCG/ACT 50 MCG/ACT Propionate 50 MCG/ACT Vitamin C Vitamin C No 1{table QD Vitamin C 1000 MG 1000 MG t} 1000 MG Clotrimazol Clotrimazol No 1{appli BID Clotrimazo e 1 % e 1 % cation} le 1 % Vitamin D Vitamin D No 1{capsu QD Vitamin D 50 MCG 50 MCG le} 50 MCG (1999) (1999 UT) (1999 UT) Fluticasone Fluticasone No Fluticason Propionate Propionate e 50 MCG/ACT 50 MCG/ACT Propionate 50 MCG/ACT ProAir ProAir No 2{puffs QID ProAir RespiClick RespiClick _as_nee RespiClick 108 (90 108 (90 ded} 108 (90 Base) Base) Base) MCG/ACT MCG/ACT MCG/ACT L-Lysine L-Lysine No L-Lysine 500 MG 500 MG 500 MG Vitamin C Vitamin C No 1{table QD Vitamin C 1000 MG 1000 MG t} 1000 MG Fiber - Fiber - No Fiber - Omeprazole Omeprazole No 1{capsu QD Omeprazole 40 MG 40 MG le} 40 MG Wal-Zyr 10 Wal-Zyr 10 No 1{capsu QD Wal-Zyr 10 MG MG le} MG Vitamin D Vitamin D No 1{capsu QD Vitamin D 50 MCG 50 MCG le} 50 MCG (1999) (1999) (1999 [facility]) L-Lysine L-Lysine No L-Lysine 500 MG 500 MG 500 MG Fiber - Fiber - No Fiber - Wal-Zyr 10 Wal-Zyr 10 No 1{capsu QD Wal-Zyr 10 MG MG le} MG Omeprazole Omeprazole No 1{capsu QD Omeprazole 40 MG 40 MG le} 40 MG Vitamin C Vitamin C No 1{table QD Vitamin C 1000 MG 1000 MG t} 1000 MG ProAir HFA ProAir HFA No 1{puff_ 6xD ProAir HFA 108 (90 108 (90 as_need 108 (90 Base) Base) ed} Base) MCG/ACT MCG/ACT MCG/ACT Fluticasone Fluticasone No Fluticason Propionate Propionate e 50 MCG/ACT 50 MCG/ACT Propionate 50 MCG/ACT Clotrimazol Clotrimazol No 1{appli BID Clotrimazo e 1 % e 1 % cation} le 1 % Vitamin D Vitamin D No 1{capsu QD Vitamin D 50 MCG 50 MCG le} 50 MCG (1999) (1999) (1999 [facility]) L-Lysine L-Lysine No L-Lysine 500 MG 500 MG 500 MG Fiber - Fiber - No Fiber - [facility] 10 Wal-Zyr 10 No 1{capsu QD Wal-Zyr 10 MG MG le} MG Omeprazole Omeprazole No 1{capsu QD Omeprazole 40 MG 40 MG le} 40 MG Vitamin C Vitamin C No 1{table QD Vitamin C 1000 MG 1000 MG t} 1000 MG ProAir HFA ProAir HFA No 1{puff_ 6xD ProAir HFA 108 (90 108 (90 as_need 108 (90 Base) Base) ed} Base) MCG/ACT MCG/ACT MCG/ACT Fluticasone Fluticasone No Fluticason Propionate Propionate e 50 MCG/ACT 50 MCG/ACT Propionate 50 MCG/ACT Clotrimazol Clotrimazol No 1{appli BID Clotrimazo e 1 % e 1 % cation} le 1 % Fiber - Fiber - No Fiber - L-Lysine L-Lysine No L-Lysine 500 MG 500 MG 500 MG Clotrimazol Clotrimazol No 1{appli BID Clotrimazo e 1 % e 1 % cation} le 1 % Vitamin C Vitamin C No 1{table QD Vitamin C 1000 MG 1000 MG t} 1000 MG Omeprazole Omeprazole No 1{capsu QD Omeprazole 40 MG 40 MG le} 40 MG [facility] 10 [facility] 10 No 1{capsu QD Wal-Zyr 10 MG MG le} MG Vitamin D Vitamin D No 1{capsu QD Vitamin D 50 MCG 50 MCG le} 50 MCG (1999 UT) (1999 UT) (1999 UT) ProAir HFA ProAir HFA No 1{puff_ 6xD ProAir HFA 108 (90 108 (90 as_need 108 (90 Base) Base) ed} Base) MCG/ACT MCG/ACT MCG/ACT Fluticasone Fluticasone No Fluticason Propionate Propionate e 50 MCG/ACT 50 MCG/ACT Propionate 50 MCG/ACT Fiber - Fiber - No Fiber - L-Lysine L-Lysine No L-Lysine 500 MG 500 MG 500 MG Clotrimazol Clotrimazol No 1{appli BID Clotrimazo e 1 % e 1 % cation} le 1 % Vitamin C Vitamin C No 1{table QD Vitamin C 1000 MG 1000 MG t} 1000 MG Omeprazole Omeprazole No 1{capsu QD Omeprazole 40 MG 40 MG le} 40 MG [facility] 10 [facility] 10 No 1{capsu QD Wal-Zyr 10 MG MG le} MG Vitamin D Vitamin D No 1{capsu QD Vitamin D 50 MCG 50 MCG le} 50 MCG (1999) (1999) (1999) ProAir HFA ProAir HFA No 1{puff_ 6xD ProAir HFA 108 (90 108 (90 as_need 108 (90 Base) Base) ed} Base) MCG/ACT MCG/ACT MCG/ACT Fluticasone Fluticasone No Fluticason Propionate Propionate e 50 MCG/ACT 50 MCG/ACT Propionate 50 MCG/ACT Vitamin D Vitamin D No 1{capsu QD Vitamin D 50 MCG 50 MCG le} 50 MCG (1999) (1999) (1999) Vitamin C Vitamin C No 1{table QD Vitamin C 1000 MG 1000 MG t} 1000 MG Clotrimazol Clotrimazol No 1{appli BID Clotrimazo e 1 % e 1 % cation} le 1 % ProAir HFA ProAir HFA No 1{puff_ 6xD ProAir HFA 108 (90 108 (90 as_need 108 (90 Base) Base) ed} Base) MCG/ACT MCG/ACT MCG/ACT Wal-Zyr 10 Wal-Zyr 10 No 1{capsu QD Wal-Zyr 10 MG MG le} MG Fiber - Fiber - No Fiber - Omeprazole Omeprazole No 1{capsu QD Omeprazole 40 MG 40 MG le} 40 MG L-Lysine L-Lysine No L-Lysine 500 MG 500 MG 500 MG Fluticasone Fluticasone No Fluticason Propionate Propionate e 50 MCG/ACT 50 MCG/ACT Propionate 50 MCG/ACT Wal-Zyr 10 Wal-Zyr 10 No 1{capsu QD Wal-Zyr 10 MG MG le} MG Vitamin D Vitamin D No 1{capsu QD Vitamin D 50 MCG 50 MCG le} 50 MCG (1999) (1999) (1999) Fiber - Fiber - No Fiber - Vitamin C Vitamin C No 1{table QD Vitamin C 1000 MG 1000 MG t} 1000 MG Omeprazole Omeprazole No 1{capsu QD Omeprazole 40 MG 40 MG le} 40 MG Clotrimazol Clotrimazol No 1{appli BID Clotrimazo e 1 % e 1 % cation} le 1 % L-Lysine L-Lysine No L-Lysine 500 MG 500 MG 500 MG ProAir HFA ProAir HFA No 1{puff_ 6xD ProAir HFA 108 (90 108 (90 as_need 108 (90 Base) Base) ed} Base) MCG/ACT MCG/ACT MCG/ACT Fluticasone Fluticasone No Fluticason Propionate Propionate e 50 MCG/ACT 50 MCG/ACT Propionate 50 MCG/ACT Wal-Zyr 10 Wal-Zyr 10 No 1{capsu QD Wal-Zyr 10 MG MG le} MG Vitamin D Vitamin D No 1{capsu QD Vitamin D 50 MCG 50 MCG le} 50 MCG (1999) (1999) (1999) Fiber - Fiber - No Fiber - Vitamin C Vitamin C No 1{table QD Vitamin C 1000 MG 1000 MG t} 1000 MG ProAir HFA ProAir HFA No 1{puff_ 6xD ProAir HFA 108 (90 108 (90 as_need 108 (90 Base) Base) ed} Base) MCG/ACT MCG/ACT MCG/ACT Omeprazole Omeprazole No 1{capsu QD Omeprazole 40 MG 40 MG le} 40 MG L-Lysine L-Lysine No L-Lysine 500 MG 500 MG 500 MG Clotrimazol Clotrimazol No 1{appli BID Clotrimazo e 1 % e 1 % cation} le 1 % Fluticasone Fluticasone No Fluticason Propionate Propionate e 50 MCG/ACT 50 MCG/ACT Propionate 50 MCG/ACT Wal-Zyr 10 Wal-Zyr 10 No 1{capsu QD Wal-Zyr 10 MG MG le} MG Vitamin D Vitamin D No 1{capsu QD Vitamin D 50 MCG 50 MCG le} 50 MCG (1999) (1999) (1999) Fiber - Fiber - No Fiber - Fluticasone Fluticasone No Fluticason Propionate Propionate e 50 MCG/ACT 50 MCG/ACT Propionate 50 MCG/ACT Vitamin C Vitamin C No 1{table QD Vitamin C 1000 MG 1000 MG t} 1000 MG Clotrimazol Clotrimazol No 1{appli BID Clotrimazo e 1 % e 1 % cation} le 1 % L-Lysine L-Lysine No L-Lysine 500 MG 500 MG 500 MG ProAir HFA ProAir HFA No 1{puff_ 6xD ProAir HFA 108 (90 108 (90 as_need 108 (90 Base) Base) ed} Base) MCG/ACT MCG/ACT MCG/ACT Omeprazole Omeprazole No 1{capsu QD Omeprazole 40 MG 40 MG le} 40 MG Wal-Zyr 10 Wal-Zyr 10 No 1{capsu QD Wal-Zyr 10 MG MG le} MG Vitamin D Vitamin D No 1{capsu QD Vitamin D 50 MCG 50 MCG le} 50 MCG (1999) (1999 UT) (1999 UT) Fiber - Fiber - No Fiber - Fluticasone Fluticasone No Fluticason Propionate Propionate e 50 MCG/ACT 50 MCG/ACT Propionate 50 MCG/ACT Vitamin C Vitamin C No 1{table QD Vitamin C 1000 MG 1000 MG t} 1000 MG Clotrimazol Clotrimazol No 1{appli BID Clotrimazo e 1 % e 1 % cation} le 1 % L-Lysine L-Lysine No L-Lysine 500 MG 500 MG 500 MG ProAir HFA ProAir HFA No 1{puff_ 6xD ProAir HFA 108 (90 108 (90 as_need 108 (90 Base) Base) ed} Base) MCG/ACT MCG/ACT MCG/ACT Omeprazole Omeprazole No 1{capsu QD Omeprazole 40 MG 40 MG le} 40 MG Vitamin D Vitamin D No 1{capsu QD Vitamin D 50 MCG 50 MCG le} 50 MCG (1999) (1999 UT) (1999 UT) Fluticasone Fluticasone No Fluticason Propionate Propionate e 50 MCG/ACT 50 MCG/ACT Propionate 50 MCG/ACT ProAir HFA ProAir HFA No 1{puff_ 6xD ProAir HFA 108 (90 108 (90 as_need 108 (90 Base) Base) ed} Base) MCG/ACT MCG/ACT MCG/ACT Symbicort Symbicort No 2{puffs QD Symbicort 80-4.5 80-4.5 } 80-4.5 MCG/ACT MCG/ACT MCG/ACT Clotrimazol Clotrimazol No 1{appli BID Clotrimazo e 1 % e 1 % cation} le 1 % L-Lysine L-Lysine No L-Lysine 500 MG 500 MG 500 MG Fiber - Fiber - No Fiber - Montelukast Montelukast No 1{table QD Montelukas Sodium 10 Sodium 10 t} t Sodium MG MG 10 MG Wal-Zyr 10 Wal-Zyr 10 No 1{capsu QD Wal-Zyr 10 MG MG le} MG Vitamin C Vitamin C No 1{table QD Vitamin C 1000 MG 1000 MG t} 1000 MG Omeprazole Omeprazole No 1{capsu QD Omeprazole 40 MG 40 MG le} 40 MG Immunizations Ordered Immunization Filled Immunization Date Status Commen ts Source Name Name Gentamicin 80mg Gentamicin 80mg 2019-11-02 Completed [facility] 16:05:00 [facility] Gentamicin 80mg Gentamicin 80mg 2019-11-02 Completed [facility] 16:05:00 [facility] Gentamicin 80mg Gentamicin 80mg 2019-11-02 Completed [facility] 16:05: [facility] Gentamicin 80mg Gentamicin 80mg 2019-11-02 Completed [facility] 16:05:00 [facility] Toradol (Ketorolac) Toradol (Ketorolac) 2019-07-08 [facility]pleted [facility] 08:45:00 [facility] Toradol (Ketorolac) Toradol (Ketorolac) 2019-07-08 [facility]pleted [facility] 08:45:00 [facility] Toradol (Ketorolac) Toradol (Ketorolac) 2019-07-08 [facility]pleted [facility] 08:45:00 [facility] Toradol (Ketorolac) Toradol (Ketorolac) 2019-07-08 [facility]pleted [facility] 08:45:00 [facility] Toradol (Ketorolac) Toradol (Ketorolac) 2019-06-28 Completed [facility] 15:35:00 [facility] Toradol (Ketorolac) Toradol (Ketorolac) 2019-06-28 [facility]pleted [facility] 15:35:00 [facility] Toradol (Ketorolac) Toradol (Ketorolac) 2019-06-28 [facility]pleted [facility] 15:35:00 [facility] Toradol (Ketorolac) Toradol (Ketorolac) 2019-06-28 Completed [facility] 15:35:00 [facility] Vital Signs Vital Name Observation Time Observation Value Comments Source height 2022-01-07 08:00:00 63 [in_i] [facility] weight 2022-01-07 08:00:00 198 [lb_av] [facility] temperature 2022-01-07 08:00:00 97.9 [degF] [facility] bmi 2022-01-07 08:00:00 35.07 kg/m2 [facility] oximetry 2022-01-07 08:00:00 95 % [facility] respiratory rate 2022-01-07 08:00:00 17 /min Comm on [facility] blood pressure 2022-01-07 08:00:00 136 mm[Hg] Common [facility] systolic [facility] blood pressure 2022-01-07 08:00:00 77 mm[Hg] [facility] diastolic [facility] height 2021-11-05 10:40:00 63 [in_i] [facility] weight 2021-11-05 10:40:00 196 [lb_av] [facility] temperature 2021-11-05 10:40:00 98.1 [degF] [facility] bmi 2021-11-05 10:40:00 34.72 kg/m2 [facility] height 2021-10-29 11:40:00 63 [in_i] [facility] weight 2021-10-29 11:40:00 196 [lb_av] [facility] temperature 2021-10-29 11:40:00 99.3 [degF] [facility] bmi 2021-10-29 11:40:00 34.72 kg/m2 [facility] Systolic blood 2021-10-21 14:08:00 135 mm[Hg] Univer sity of pressure [facility] Diastolic blood 2021-10-21 14:08:00 90 mm[Hg] Unive rsity of pressure [facility] Heart rate 2021-10-21 14:08:00 80 /min Universi ty [facility] Body temperature 2021-10-21 14:08:00 36.61 Lacy [facility] Respiratory rate 2021-10-21 14:08:00 16 /min [facility] Body height 2021-10-21 14:08:00 160 cm Universi ty of [facility] Body weight 2021-10-21 14:08:00 89.54 kg Universi ty [facility] BMI 2021-10-21 14:08:00 34.97 kg/m2 Universi ty [facility] Oxygen saturation in 2021-10-21 14:08:00 97 /min [facility] Arterial blood by [facility] Pulse oximetry Branch height 2021-09-21 08:40:00 63 [in_i] Common [facility] weight 2021-09-21 08:40:00 194.4 [lb_av] [facility] temperature 2021-09-21 08:40:00 97.7 [degF] [facility] bmi 2021-09-21 08:40:00 34.43 kg/m2 [facility] oximetry 2021-09-21 08:40:00 97 % [facility] respiratory rate 2021-09-21 08:40:00 16 /min Comm on [facility] blood pressure 2021-09-21 08:40:00 122 mm[Hg] Common [facility] - systolic [facility] blood pressure 2021-09-21 08:40:00 86 mm[Hg] Common [facility] - diastolic [facility] Body height 2021-07-16 15:14:00 160 cm Universi ty of [facility] height 2021-05-14 09:20:00 63 [in_i] Common [facility] weight 2021-05-14 09:20:00 196 [lb_av] [facility] temperature 2021-05-14 09:20:00 97.3 [degF] [facility] bmi 2021-05-14 09:20:00 34.72 kg/m2 Common [facility] oximetry 2021-05-14 09:20:00 96 % Common [facility] respiratory rate 2021-05-14 09:20:00 16 /min Comm on [facility] blood pressure 2021-05-14 09:20:00 134 mm[Hg] [facility] - systolic [facility] blood pressure 2021-05-14 09:20:00 68 mm[Hg] [facility] - diastolic [facility] height 2021-03-23 10:40:00 63 [in_i] Common [facility] weight 2021-03-23 10:40:00 196 [lb_av] [facility] temperature 2021-03-23 10:40:00 101 [degF] [facility] bmi 2021-03-23 10:40:00 34.72 [facility] height 2021-02-19 15:00:00 63 [in_i] [facility] weight 2021-02-19 15:00:00 187 [lb_av] [facility] temperature 2021-02-19 15:00:00 98.8 [degF] [facility] bmi 2021-02-19 15:00:00 33.12 kg/m2 [facility] oximetry 2021-02-19 15:00:00 98 % [facility] respiratory rate 2021-02-19 15:00:00 16 /min Comm on [facility] blood pressure 2021-02-19 15:00:00 138 mm[Hg] Common [facility] - systolic [facility] blood pressure 2021-02-19 15:00:00 81 mm[Hg] Common [facility] - diastolic [facility] height 2021-01-17 14:40:00 63 [in_i] [facility] weight 2021-01-17 14:40:00 197.4 [lb_av] Common [facility] temperature 2021-01-17 14:40:00 98.2 [degF] [facility] bmi 2021-01-17 14:40:00 34.96 kg/m2 [facility] oximetry 2021-01-17 14:40:00 98 % [facility] respiratory rate 2021-01-17 14:40:00 16 /min Comm on [facility] blood pressure 2021-01-17 14:40:00 122 mm[Hg] Common [facility] systolic [facility] blood pressure 2021-01-17 14:40:00 78 mm[Hg] [facility] diastolic [facility] height 2021-01-12 10:20:00 63 [in_i] [facility] weight 2021-01-12 10:20:00 196 [lb_av] [facility] temperature 2021-01-12 10:20:00 97.6 [degF] [facility] bmi 2021-01-12 10:20:00 34.72 kg/m2 [facility] Procedures This patient has no known procedures. Encounters Start End Encounter Admission Attending Care Care Encounter Source Date/Time Date/Time Type Type Clinicians Facility Department ID 2021-12-27 Outpatient SEAN Estes [facility] [id number] Common 09:40:01 Radha [facility] 2021-09-19 Outpatient Estephania STYUNG [facility] [id number] Common 07:36:00 Radha [id number] [facility] 2021-05-14 Outpatient Estephania STJESSICALC STLC [id number] Common 10:14:00 Radha [facility] 2021-04-11 [facility] [id number] Common 14:24:24 Radha [id number] [facility] 2021-04-11 Outpatient Republic, STLMLC STLMLC [id number] Common 14:20:10 Radha 71231 [facility] 2021-04-11 Outpatient [place], STLMLC STLMLC [id number] Common 13:11:01 Radha 74589 [facility] 2021-04-11 Outpatient [place], STLMLC STLMLC [id number] Common 12:16:05 Radha 37629 [facility] 2021-04-11 Outpatient [place], STLMLC STLMLC [id number] Common 11:24:04 Radha 15715 [facility] 2021-04-11 Outpatient [place], STLMLC STLMLC [id number] Common 11:07:47 Radha 91277 [facility] 2022-01-07 2022-01-07 OFFICE STLMLC STLMLC [id number] Co mmon 00:00:00 00:00:00 VISIT EST Spir it PT LEVEL 3 - [facility] 2021-11-28 2021-11-28 (TEL) STLMLC STLMLC [id number] Co mmon 00:00:00 00:00:00 [facility] 2021-11-26 2021-11-26 (TEL) STLMLC STLMLC [id number] Co mmon 00:00:00 00:00:00 [facility] 2021-11-21 2021-11-21 (TEL) STLMLC STLMLC [id number] [facility] m[facility] 00:00:00 00:00:00 [facility] 2021-11-08 2021-11-08 (TEL) STLMLC STLMLC [id number] Co mmon 00:00:00 00:00:00 [facility] 2021-11-05 2021-11-05 OFFICE STLMLC STLMLC [id number] Co mmon 00:00:00 00:00:00 VISIT EST Spir it PT LEVEL 3 - [facility] 2021-10-29 2021-10-29 OFFICE STLMLC STLMLC [id number] Co mmon 00:00:00 00:00:00 VISIT EST Spir it PT LEVEL 3 - [facility] 2021-10-29 2021-10-29 (TEL) STLMLC STLMLC [id number] Co mmon 00:00:00 00:00:00 [facility] 2021-10-21 2021-10-21 Urgent Ivette Hernandez [facility] [id number] Univers 09:00:00 09:20:00 Yu Rogersmustapha [facility] [id number] ity [facility] [id number] Semaj as MATT?BLEA [phone] [address] MEDICAL OFFICE BUILDING 2021-10-21 2021-10-21 Outpatient R DAVID [facility] [id number] Univers 09:00:00 09:00:00 [facility] 2021-10-21 2021-10-21 Telephone [facility] [id number] Univers 00:00:00 00:00:00 [place] [id number] it y of [place] [id number] Semaj as MATT?BLEA [phone] [address] MEDICAL OFFICE BUILDING 2021-10-08 2021-10-08 (TEL) STLMLC STLMLC [id number] Co mmon 00:00:00 00:00:00 [facility] 2021-10-05 2021-10-05 (TEL) STLMLC STLMLC [id number] Co mmon 00:00:00 00:00:00 [facility] 2021-10-04 2021-10-04 (TEL) STLMLC STLMLC [id number] Co mmon 00:00:00 00:00:00 [facility] 2021-09-21 2021-09-21 OFFICE STLMLC STLMLC [id number] Co mmon 00:00:00 00:00:00 VISIT EST Spir it PT LEVEL 3 - [facility] 2021-08-31 2021-08-31 (TEL) STLMLC STLMLC [id number] Co mmon 00:00:00 00:00:00 [facility] 2021-07-16 2021-07-16 Office [facility] [id number] Univers 10:30:00 10:56:21 Visit Sammi Baldwin [facility] [id number] ity jonathan BERRY [id number] [place] [facility] [phone] [address] [facility] 2021-07-16 2021-07-16 Outpatient Ezequiel WILSON [facility] [id number] Univers 10:30:00 10:56:21 SAMMI colon [facility] 2021-07-16 2021-07-16 Outpatient Ezequiel WILSON [facility] [id number] Univers 10:30:00 10:30:00 SAMMI [facility] 2021-05-14 2021-05-14 OFFICE STLMLC STLMLC [id number] Co mmon 00:00:00 00:00:00 VISIT EST Spir it PT LEVEL 3 [facility] 2021-03-28 2021-03-28 OL DIG E/M STLMLC STLMLC [id number] Common 00:00:00 00:00:00 SVC 11-20 Spir it MIN [facility] 2021-03-23 2021-03-23 (TEL) STLMLC STLMLC [id number] Co mmon 00:00:00 00:00:00 [facility] 2021-03-23 2021-03-23 OFFICE STLMLC STLMLC [id number] Co mmon 00:00:00 00:00:00 VISIT EST Spir it PT LEVEL 3 [facility] 2021-03-04 2021-03-04 Outpatient Ezequiel RESTREPO [facility] [id number] Univers 10:00:00 10:26:25 DIVINE colon [facility] 2021-03-04 2021-03-04 Urgent Divine Restrepo [facility] [id number] Univers 10:00:00 10:26:25 Care David [facility] [id number] ity of [facility] [id number] Semaj as MATT?BLEA [phone] Me dical BERKLEYEY [address] MEDICAL OFFICE BUILDING 2021-02-23 2021-02-23 Outpatient R TERRELL [facility] [id number] Univers 13:20:00 13:39:20 RONI [facility] 2021-02-23 2021-02-23 Urgent Eliana Spear [facility] [id number] Univers 13:18:29 13:39:20 Yu Terrell Roni [facility] [id number] ity jonathan [facility] [id number] Semaj as MATT?BLEA [phone] Nv dical [facility] 370 [facility] OFFICE [facility] 2021-02-23 2021-02-23 [facility] [id number] Univers 13:00:00 13:00:00 EPI [facility] 2021-02-19 2021-02-19 OFFICE STLMLC STLMLC [id number] Co mmon 00:00:00 00:00:00 VISIT EST Spir it PT LEVEL 3 - [facility] 2021-02-15 2021-02-15 (TEL) STLMLC STLMLC [id number] Co mmon 00:00:00 00:00:00 [facility] 2021-02-14 2021-02-14 Outpatient CHER BrunojohnKYLAH [id number] [facility] 06:30:00 06:30:00 Jameson 97 [facility] 2021-02-07 2021-02-07 Outpatient SILVERIO Haas LABO [id number] [facility] 09:43:00 09:43:00 Jameson 94 [facility] 2021-02-06 2021-02-06 Office [facility] [id number] Univers 15:04:55 15:52:35 Visit Mora BESS [id number] ity [facility] [id number] [place] [phone] Me dical [facility] 134 [facility] 2021-02-06 2021-02-06 Outpatient R KEVIN [facility] [id number] Univers 15:00:00 15:52:35 MORA ity of [facility] 2021-01-30 2021-01-30 (TEL) STLMLC STLMLC [id number] Co mmon 00:00:00 00:00:00 [facility] 2021-01-17 2021-01-17 OFFICE STLMLC STLMLC [id number] Co mmon 00:00:00 00:00:00 VISIT EST Spir it PT LEVEL 3 [facility] 2021-01-16 2021-01-16 (TEL) STLMLC STLMLC [id number] Co mmon 00:00:00 00:00:00 [facility] 2021-01-15 2021-01-15 (TEL) STLMLC STLMLC [id number] Co mmon 00:00:00 00:00:00 [facility] 2021-01-12 2021-01-12 OFFICE STLMLC STLMLC [id number] Co mmon 00:00:00 00:00:00 VISIT EST Spir it PT LEVEL 3 [facility] 2021-01-12 2021-01-12 (TEL) STLMLC STLMLC [id number] Co mmon 00:00:00 00:00:00 [facility] 2021-01-10 2021-01-10 (TEL) STLMLC STLMLC [id number] Co mmon 00:00:00 00:00:00 [facility] 2021-01-08 2021-01-08 Refill [facility], [facility] [id number] Univers 00:00:00 00:00:00 Mora TAMSNOW [id number] ity of [id number] [phone] [address] 2021-01-03 2021-01-03 Office Adum, [facility] [id number] Univers 13:20:17 15:16:34 Visit Mora [place] [id number] ity of [place] [id number] [place] Profess[place] [phone] Nv dical nal [address] [place] [address] 2021-01-03 2021-01-03 Outpatient R ADUM, [facility] [id number] Univers 13:30:00 13:30:00 MORA colon [facility] 2020-12-20 2020-12-20 Office Adum, [facility] [id number] Univers 15:03:38 16:56:07 Visit Mora Shaneka Bess [id number] ity [facility] [id number] [place] [phone] Nv dical nal [address] [place] [address] 2020-12-20 2020-12-20 Outpatient R ADUM, [facility] [id number] Univers 15:00:00 15:00:00 MORA colon [facility] 2020-12-20 2020-12-20 Orders Doctor STEELE [id number] Univers 00:00:00 00:00:00 Only Unassigned, KEMI [id number] ity [facility] [id number] Semaj as [phone] [address] 2020-11-16 2020-11-16 Outpatient STLMLC STLMLC [id number] Common 00:00:00 00:00:00 [facility] 2020-10-29 2020-10-29 Outpatient STLMLC STLMLC [id number] Common 00:00:00 00:00:00 [facility] 2020-10-11 2020-10-11 Outpatient STLMLC STLMLC [id number] Common 00:00:00 00:00:00 [facility] 2020-08-17 2020-08-17 Outpatient STLMLC STLMLC [id number] Common 00:00:00 00:00:00 [facility] 2020-08-16 2020-08-16 Outpatient STLMLC STLMLC [id number] Common 00:00:00 00:00:00 [facility] 2020-03-13 2020-03-13 Outpatient STLMLC STLMLC [id number] Common 00:00:00 00:00:00 [facility] 2020-02-23 2020-02-23 Outpatient STLMLC STLMLC [id number] Common 00:00:00 00:00:00 [facility] 2019-11-24 2019-11-24 Out[facility] [id number] Common 10:49:00 10:49:[address] [facility] [address] [facility] 2019-11-02 2019-11-02 Out[facility] [id number] Common 15:30:00 15:30:00 t Specialty/U Sp sweetie Specialty rology - [facility] 2019-10-18 2019-10-18 [facility] [id number] Common 11:10:00 11:10:00 t Specialty/U Sp sweetie Specialty rology [facility] /[facility] 2019-10-05 2019-10-05 [facility] [id number] Common 14:36:00 14:36:[address] [facility] [address] [facility] 2019-09-24 2019-09-24 [facility] [id number] Common 11:57:00 11:57:[address] [facility] [address] [facility] 2019-09-13 2019-09-13 [facility] [id number] Common 08:57:00 08:57:[address] [facility] [address] [facility] 2019-09-02 2019-09-02 Out[facility] [id number] Common 11:00:00 11:00:00 t Specialty/U Sp sweetie Specialty rology [facility] /[facility] 2019-08-27 2019-08-27 [facility] [id number] Common 11:40:00 11:40:[address] [facility] 2019-08-16 2019-08-16 [facility] [id number] Common 10:40:00 10:40:[address] [facility] 2019-08-16 2019-08-16 [facility] [id number] Common 09:02:00 09:02:[address] [facility] 2019-07-13 2019-07-13 [facility] [id number] Common 08:40:00 08:40:[address] [facility] 2019-07-08 2019-07-08 Out[facility] [id number] Common 09:40:00 09:40:[address] [facility] 2019-07-06 2019-07-06 [facility] [id number] Common 09:00:00 09:00:[address] [facility] 2019-06-28 2019-06-28 Out[facility] [id number] Common 14:20:00 14:20:[address] [facility] 2019-05-10 2019-05-10 Out[facility] [id number] Common 13:57:00 13:57:[address] [facility] 2019-04-30 2019-04-30 Out[facility] [id number] Common 08:00:00 08:00:[address] [facility] 2019-02-08 2019-02-08 Outpatient [facility] [id number] Common 18:06:00 18:06:[address] [facility] 2019-02-05 2019-02-05 Outpatient [facility] [id number] Common 16:33:00 16:33:[address] [facility] 2019-02-03 2019-02-03 Out[facility] [id number] Common 16:36:00 16:36:[address] [facility] 2018-12-28 2018-12-28 Out[facility] [id number] Common 09:54:00 09:54:[address] [facility] [address] [facility] 2018-12-04 2018-12-04 Outpatient Joana Nelson [id number] Common 10:00:00 10:00:[address] [facility] [address] [facility] 2018-11-19 2018-11-19 Outpatient Joana Nelson [id number] Common 17:18:00 17:18:[address] [facility] [address] [facility] 2018-11-10 2018-11-10 Outpatient Joana Nelson [id number] Common 14:28:00 14:28:[address] [facility] [address] [facility] 2018-11-06 2018-11-06 Outpatient Joana Blake [id number] Common 10:00:00 10:00:[address] [facility] [address] [facility] 2017-02-14 2017-02-14 Outpatient Yojana MCKEON [facility] [id number] [address] 04:32:00 08:45:00 [facility] Results Test Description Test Time Test Comments Results Result Comments Source Novel Coronavirus 20182021-02-07 21:58:00 Test Item Value Reference Range Interpretation Comme nts Novel Coronavirus 2018 Negative Negative Posit roney results are indicative of the Inhouse (test code = presenc e [id number] RNA, clinical [id number]) correlation wit h patient historyand other diagnosti c information is necessary to de terminepatient infection status. Positiv e results do not rule outbacterial in fection or co-infection with other viru ses. Negative results do not preclude SA RS-CoV-2 infection andshould not b e used as the sole basis for patient man agementdecisions. Negative result s must be combined with otherclinical o bservations, patient history, and ep idemiologicalinformation. Detection of SA RS-CoV-2 RNA may be affected bysamp le collection methods, storage conditi ons, and/or stageof infection. Maria De Jesus l RNA mutations, vaccinations, a ntiviraltherapeutics, antibiotics, ch emotherapeutic orimmunosuppres el drugs have not been evaluated for e ffectson detection. Results are for the identification of SARS-CoV-2 RNA usingreal-time (RT) polymerase rancho n reaction (PCR) technologyfor t he qualitative detection of nucleic acid s from [id number] virus and diagn osis of SARS-CoV-2 virusinfection. It is an Emergency Use Authorization ( EUA) testauthorized by the [place] FDA. Novel Coronavirus 21:58:00 Test Item Value Reference Range Interpretation Comments Novel Coronavirus Negative Negative Positive r esults are 2019 Inhouse (test indicativ e of the presence code = [id number]) ofSARS-CoV -2 RNA, clinical correlation wit h patient historyand othe r diagnostic info rmation is necessary to determinepatien t infection status. Positiv e results do not rule out bacterial infection or co -infection with other viru ses. Negative result s do not preclude SARS-C oV-2 infection andsh ould not be used as the vika e basis for patient managementdecis ions. Negative result s must be combined with otherclinical observations, p atient history, and epidemiological information . Detection of SARS-CoV-2 RNA may be affe cted bysample collec tion methods, storag e conditions, and /or stageof infection. Maria De Jesus l RNA mutations, vacc inations, antiviraltherap eutics, antibiotics, chemotherapeuti c orimmunosuppres el drugs have not been e valuated for effectson d etection. Results are for the identification of SARS-CoV-2 RNA usingreal-time (RT) polymerase rancho n reaction (PCR) technolog yfor the qualitative det ection of nucleic acids f rom [id number] v irus and diagnosis of SA RS-CoV-2 virusinfection. It is an Emergency Use Authorization ( EUA) testauthorized by the U.S. FDA. CBC W/MANUAL [id number] 11:47:00 Test Item Value Reference Range Interpretation Comments WHITE BLOOD CELL (test code 6.8 K/mm3 4.5-12.5 N = WBC) RED BLOOD CELL (test code = 6.00 mill/mm3 3.7-5.2 H RBC) HEMOGLOBIN (test code = HGB) 11.5 gram/dL 11.5-15.5 N HEMATOCRIT (test code = HCT) 39.8 % 36.0-46.0 N MEAN CELL VOLUME (test code 66.3 fL 80-98 L = MCV) MEAN CELL HGB (test code = 19.2 picogram 27.0-33.0 L MCH) MEAN CELL HGB CONCETRATION 28.9 gram/dL 33.0-36.0 L (test code = MCHC) RED CELL DISTRIBUTION WIDTH 17.9 % 11.6-16.2 H (test code = RDW) RED CELL DISTRIBUTION WIDTH 37.5 fL 37.0-51.0 N SD (test code = RDW-SD) PLATELET COUNT (test code = 197 K/mm3 150-450 N PLT) IMMATURE GRANULOCYTE % (test 0.1 % 0.0-5.0 N code = IG%) NUCLEATED RBC % (test code = 0.0 % 0-0 N NRBC%) NEUTROPHIL # (test code = 2.95 K/mm3 1.8-7.7 N NT#) IMMATURE GRANULOCYTE # (test 0.01 x10 3/uL 0-0.03 N code = IG#) LYMPHOCYTE # (test code = 3.16 K/mm3 1.0-5.0 N LY#) MONOCYTE # (test code = MO#) 0.36 K/mm3 0-0.8 N EOSINOPHIL # (test code = 0.27 K/mm3 0.0-0.5 N EO#) BASOPHIL # (test code = BA#) 0.04 K/mm3 0.0-0.2 N NUCLEATED RBC # (test code = 0.00 K/mm3 0.0-0.1 N NRBC#) MANUAL DIFF REQUIRED (test YES code = MDIFF) STAIN ACCEPTABILITY (test STAIN ACCEPTABLE code = STN ACCEPTABLE) TOTAL CELLS COUNTED (test 115 #CELLS code = TCC) SEGMENTED NEUTROPHILS (test 35.7 % 39-69 L code = SEG) LYMPHOCYTE (test code = 51.3 % 25-55 N LYMPH) MONOCYTE (test code = MON) 3.5 % 0-10 N EOSINOPHIL (test code = EOS) 5.2 % 0.0-5.0 H CABOT RINGS (test code = CAB) MORPHOLOGY COMMENT (test code = MOC) PLATELET ESTIMATE (test code ADEQUATE = PLTEST) PLATELET MORPHOLOGY (test NORMAL code = PLTMORPH) BAND NEUTROPHIL (test code = 0 % 0-10 N BAND) REACTIVE LYMPH (test code = 0 % RELYMPH) BASOPHIL (test code = BASO) 1.7 % 0-1.0 H METAMYELOCYTE (test code = 0 % 0-0 N META) MYELOCYTE (test code = 0 % 0.0-0.0 N MYELO) PROMYELOCYTE (test code = 0 % 0-0 N PROM) PLASMA CELL (test code = 0.9 0.0-0.0 H NATI) POIKILOCYTOSIS (test code = 2+ POIK) ANISOCYTOSIS (test code = 1+ ANISO) MICROCYTOSIS (test code = 1+ MICR) OVALOCYTES (test code = 2+ OVAL) IMMATURE FORMS (test code = 1.7 % 0-0 H IMMAT) BASIC METABOLIC [id number] 10:40:00 Test Item Value Reference Range Interpretation Comments SODIUM (test code = 141 mmol/L 136-145 N NA) POTASSIUM (test code 4.5 mmol/L 3.5-5.1 N = K) CHLORIDE (test code 107.0 mmol/L 98-107 N = CL) CARBON DIOXIDE (test 29.0 mmol/L 21-32 N code = CO2) ANION GAP (test code 9.5 10-20 L = GAP) GLUCOSE (test code = 90 mg/dL 74-106 N GLU) BLOOD UREA NITROGEN 11 mg/dL 7-18 N (test code = BUN) GLOMERULAR > 60 mL/min See_Comment Estimated GFR b y FILTRATION RATE using Modifi ed MDRD (test code = GFR) formula.Ch ronic kidney disease is defined as eith er kidney damageor GFR <60 mL/min/1.73 m2 for >3 months. [Automated mess age] The system katena generated this result transmitted ref erence range: >=60. Th e reference range was not used to int erpret this result as normal/abnormal . CREATININE (test 0.60 mg/dL 0.55-1.02 N Note mckeon ge in code = CREAT) reference rang e due to change in reagent. BUN/CREATININE RATIO 17.2 10-20 N (test code = BUN/CREA) CALCIUM (test code = 8.9 mg/dL 8.5-10.1 N CA) URINE [id number] 05:49:00 Test Item Value Reference Range Interpretation Comments PREG UR (test code = PGU) NEGATIVE NEGATIVE
[2022-01-08] MEDS ORDERED: HYDROCODONE/APAP 7.5/325 MG TAB ONE (11:05)
--- NOTE | 2022-01-08 11:26 | RAD REPORT ---
EXAM DESCRIPTION: RAD - Forearm Left - 01/08/2022 11:12 am CLINICAL HISTORY: PAINfollowing fall COMPARISON: None. FINDINGS: No fracture is identified. There is no dislocation or periosteal reaction noted. No foreign body or other soft tissue abnormality. IMPRESSION: Negative left forearm examination.
--- NOTE | 2022-01-08 11:49 | ER ---
Nurse's Notes [facility] Name: Krysten Love Age: 56 yrs Sex: Female : 1965 Arrival Date: 01/08/2022 Time: 10:47 Bed 5 Private MD: Radha Best Diagnosis: Other specified sprain of left wrist Presentation: 01/08 10:59 Chief complaint: Patient states: Was outside in yard when was tripped up by a rock and vg1 fell onto left arm. Pt c/o Left wrist and Left forearm pain. Coronavirus screen: Vaccine status: Patient reports being unvaccinated. Client denies travel out of the [place] in the last 14 days. Ebola Screen: Patient negative for fever greater than or equal to 101.5 degrees Fahrenheit, and additional compatible Ebola Virus Disease symptoms Patient denies exposure to infectious person. Initial Sepsis Screen: Does the patient meet any 2 criteria? No. Patient's initial sepsis screen is negative. Does the patient have a suspected source of infection? No. Patient's initial sepsis screen is negative. Risk Assessment: Do you want to hurt yourself or someone else? Patient reports no desire to harm self or others. Onset of symptoms was January 08, 2022. 10:59 Method Of Arrival: Ambulatory vg1 10:59 Acuity: SAMIR 4 vg1 Triage Assessment: 11:00 General: Appears in no apparent distress. uncomfortable, Behavior is calm, cooperative. vg1 Pain: Complains of pain in left arm Pain currently is 8 out of 10 on a pain scale. Pain began 30 min ago. EENT: No signs and/or symptoms were reported regarding the EENT system. Neuro: Level of Consciousness is awake, alert, obeys commands, Oriented to person, place, time, situation. Cardiovascular: Capillary refill < 3 seconds in bilateral fingers Patient's skin is warm and dry. Pulses unable to palpate in Left wrist; pt stated pain to touch. Respiratory: Airway is patent Respiratory effort is even, unlabored. GI: No signs and/or symptoms were reported involving the gastrointestinal system. : No signs and/or symptoms were reported regarding the genitourinary system. Derm: Skin is pink, warm \T\ dry. Musculoskeletal: Range of motion: limited in left wrist. Historical: - Allergies: 10:48 PENICILLINS; ll1 11:00 Sulfa (Sulfonamide Antibiotics); vg1 - PMHx: 10:48 Back pain; Hypothyroidism; ll1 - Immunization history:: Client reports having NOT received the Covid vaccine. - Social history:: Smoking status: Patient denies any tobacco usage or history of. Screenin:02 Abuse screen: Denies threats or abuse. Nutritional screening: No deficits noted. vg1 Tuberculosis screening: No symptoms or risk factors identified. Fall Risk Fall in past 12 months (25 points). No secondary diagnosis (0 pts). No IV (0 pts). Ambulatory Aid- None/Bed Rest/Nurse Assist (0 pts). Gait- Normal/Bed Rest/Wheelchair (0 pts) Mental Status- Oriented to own ability (0 pts). Total Zayas Fall Scale indicates Low Risk Score (25-44 pts). Fall prevention measures have been instituted. Side Rails Up X 2 Placed close to Nursing Station Family Present and informed to notify staff if they need to leave bedside. Assessment: 11:02 Reassessment: SEE TRIAGE. vg1 12:00 Reassessment: Patient appears in no apparent distress at this time. No changes from vg1 previously documented assessment. Patient and/or family updated on plan of care and expected duration. Pain level reassessed. Patient is alert, oriented x 3, equal unlabored respirations, skin warm/dry/pink. 12:51 Musculoskeletal: Circulation, motion, and sensation intact. Capillary refill < 3 ll1 seconds. 13:12 Reassessment: Patient appears in no apparent distress at this time. No changes from vg1 previously documented assessment. Patient and/or family updated on plan of care and expected duration. Pain level reassessed. Patient is alert, oriented x 3, equal unlabored respirations, skin warm/dry/pink. Vital Signs: 10:59 BP 142 / 92; Pulse 83; Resp 16; Temp 97.9; Pulse Ox 97% ; Weight 89.81 kg; Height 5 ft. vg1 3 in. (160.02 cm); Pain 8/10; 13:12 BP 139 / 87; Pulse 77; Resp 16; Pulse Ox 98% on R/A; vg1 10:59 Body Mass Index 35.07 (89.81 kg, 160.02 cm) vg1 ED Course: 10:47 Patient arrived in ED. am2 10:48 Radha Best FNP-C is Private Physician. am2 10:48 Gianna Drake, RN is Primary Nurse. vg1 10:48 Arm band placed on Patient placed in an exam room, on a stretcher. ll1 10:49 Elvira John FNP-C is [facility]. kb 10:49 Alberto Arroyo MD is Attending Physician. kb 11:00 Triage completed. vg1 11:02 Patient has correct armband on for positive identification. Bed in low position. Call vg1 light in reach. Side rails up X 1. Adult w/ patient. Pulse ox on. NIBP on. 11:14 Forearm Left XRAY In Process Unspecified. EDMS 12:51 Orthoglass splint: Sugar tong splint applied on left arm. ll1 13:13 No provider procedures requiring assistance completed. Patient did not have IV access vg1 during this emergency room visit. Administered Medications: 11:10 Drug: [place] (HYDROcodone-acetaminophen) (7.5 mg-325 mg) 1 tabs Route: PO; vg1 12:51 Follow up: Response: No adverse reaction vg1 Medication: 13:13 VIS not applicable for this client. vg1 Outcome: 11:49 Discharge ordered by . kb 13:13 Discharged to home ambulatory, with family. vg1 13:13 Condition: good 13:13 Discharge instructions given to patient, Instructed on discharge instructions, follow up and referral plans. medication usage, Demonstrated understanding of instructions, follow-up care, medications, Prescriptions given X 1. 13:13 Patient left the ED. vg1 Signatures: Dispatcher [employer] EDMS Elvira John FNP-C FNP-Ebonie Jackson am2 Gianna Drake, RN RN vg1 Sudha Brody RN RN ll1
--- NOTE | 2022-01-08 11:49 | EDPHYS ---
Physician Documentation [facility] Name: Krysten Love Age: 56 yrs Sex: Female : 1965 Arrival Date: 01/08/2022 Time: 10:47 Bed 5 Private MD: Radha Best ED Physician Alberto Arroyo HPI: 01/08 11:37 This 56 yrs old Female presents to ER via Ambulatory with complaints of Arm Injury - kb left. 11:37 The patient or guardian complains of decreased range of motion, pain, tenderness. The kb complaints affect the left forearm. Context: The problem was sustained outdoors, resulted from a fall, on an outstretched hand. Onset: The symptoms/episode began/occurred just prior to arrival. Treatment prior to arrival includes: no previous treatment. Modifying factors: The symptoms are alleviated by nothing. the symptoms are aggravated by movement. Associated signs and symptoms: Pertinent positives: decreased range of motion, pain. Severity of symptoms: At their worst the symptoms were moderate, in the emergency department the symptoms are unchanged. The patient has not experienced similar symptoms in the past. The patient has not recently seen a physician. Historical: - Allergies: 10:48 PENICILLINS; ll1 11:00 Sulfa (Sulfonamide Antibiotics); vg1 - PMHx: 10:48 Back pain; Hypothyroidism; ll1 - Immunization history:: Client reports having NOT received the Covid vaccine. - Social history:: Smoking status: Patient denies any tobacco usage or history of. ROS: 11:36 Constitutional: Negative for fever, chills, and weight loss. kb 11:36 MS/extremity: Positive for decreased range of motion, pain, tenderness, of the left forearm. 11:36 All other systems are negative. Exam: 11:36 Constitutional: This is a well developed, well nourished patient who is awake, alert, kb and in no acute distress. Head/Face: Normocephalic, atraumatic. ENT: Moist Mucous membranes Cardiovascular: Regular rate and rhythm with a normal S1 and S2. No gallops, murmurs, or rubs. No pulse deficits. Respiratory: Respirations even and unlabored. No increased work of breathing. Talking in full sentences Skin: Warm, dry with normal turgor. Normal color. Neuro: Awake and alert, GCS 15, oriented to person, place, time, and situation. Moves all extremities. Normal gait. Psych: Awake, alert, with orientation to person, place and time. Behavior, mood, and affect are within normal limits. 11:36 Musculoskeletal/extremity: Extremities: grossly normal except: noted in the left forearm: decreased ROM, pain, tenderness, ROM: limited active range of motion due to pain, in the left forearm, Circulation is intact in all extremities. Sensation intact. Vital Signs: 10:59 BP 142 / 92; Pulse 83; Resp 16; Temp 97.9; Pulse Ox 97% ; Weight 89.81 kg; Height 5 ft. vg1 3 in. (160.02 cm); Pain 8/10; 13:12 BP 139 / 87; Pulse 77; Resp 16; Pulse Ox 98% on R/A; vg1 10:59 Body Mass Index 35.07 (89.81 kg, 160.02 cm) vg1 MDM: 10:49 Patient medically screened. kb 11:37 Data reviewed: vital signs, nurses notes. Data interpreted: Pulse oximetry: on room air kb is 97 %. Interpretation: normal. Counseling: I had a detailed discussion with the patient and/or guardian regarding: the historical points, exam findings, and any diagnostic results supporting the discharge/admit diagnosis, radiology results, the need for outpatient follow up, a orthopedic surgeon, to return to the emergency department if symptoms worsen or persist or if there are any questions or concerns that arise at home. 01/08 10:54 Order name: Forearm Left XRAY; Complete Time: 11:36 kb 01/08 11:49 Order name: Sugar Tong Forearm Splint; Complete Time: 12:51 kb Administered Medications: 11:10 Drug: [place] (HYDROcodone-acetaminophen) (7.5 mg-325 mg) 1 tabs Route: PO; vg1 12:51 Follow up: Response: No adverse reaction vg1 Disposition Summary: 01/08/22 11:49 Discharge Ordered Location: Home kb Condition: Stable kb Diagnosis - Other specified sprain of left wrist kb Followup: kb - With: Emergency Department - When: As needed - Reason: Worsening of condition Followup: kb - With: Private Physician - When: 2 - 3 days - Reason: Recheck today's complaints, Continuance of care, Re-evaluation by your physician Discharge Instructions: - Discharge Summary Sheet kb - Wrist Sprain, Adult kb Forms: - Medication Reconciliation Form kb - Thank You Letter kb - Antibiotic Education kb - Prescription Opioid Use kb Prescriptions: - Ibuprofen 800 mg Oral Tablet - take 1 tablet by ORAL route every 8 hours As needed take with food; 30 tablet; kb Refills: 0, Product Selection Permitted Signatures: Dispatcher [employer] Elvira Reid, [facility] Gianna Sigala RN RN vg1 Sudha Brody RN RN ll1
[2022-01-08 13:18] VITALS: TEMP 97.9
[2022-01-08 13:19] VITALS: BP 139/87; O2SAT 98
== END 2022-01-08 13:13 | disposition home or self-care (01) ==
LOC: ER 10:46
PROC: 2W3DX1Z Immobilization of Left Lower Arm using Splint (ICD-10-PCS; principal; 2022-01-08)
DX: S63.592A Other specified sprain of left wrist, initial encounter (principal); Z88.0 Allergy status to penicillin; Z88.2 Allergy status to sulfonamides
CPT/HCPCS: 99284

== ENCOUNTER 2023-07-10 08:33 | Emergency (ER) | payer BC ==
[2023-07-10] MEDS ORDERED: METHYLPREDNISOLONE 125 MG INJ ONE (09:23)
[2023-07-10] MEDS ORDERED: GABAPENTIN 300 MG CAP ONE (09:24)
[2023-07-10] MEDS ORDERED: DIPHENHYDRAMINE 50 MG/ML VIAL ONE (09:24)
[2023-07-10] MEDS ORDERED: METOCLOPRAMIDE 10 MG/2mL INJ ONE (09:24)
[2023-07-10 09:52] LABS: Absolute Basophils 0.1 K/uL (0-0.5); Absolute Eosinophils 0.2 K/uL (0-0.5); Absolute Lymphocytes (CBC) 2.7 K/uL (0.7-4.9); Absolute Monocytes 0.4 K/uL (0.1-1.3); Absolute Neutrophil 3.3 K/uL (1.8-8.0); Basophils % 1.3 % (0-1.3); Eosinophils % 2.8 % (0-4.4); Hematocrit 37.8 % (36.0-45.0); Hemoglobin 11.9 g/dL (12.0-15.0); Lymphocytes % 40.3 % (15.3-44.8); MCH 19.3 pg (27.0-35.0); MCHC 31.4 g/dL (32.0-36.0); MCV 61.3 fL (80-100); MPV 9.6 fL (7.6-11.3); Neutrophils % 49.6 % (41.7-73.7); Nucleated Red Blood Cells % 0.2 % (0-0); Platelets 177 thou/uL (152-406); RBC Red Blood Cell Count 6.17 M/uL (3.86-4.86); Red Cell Distribution Width 16.8 % (12.1-15.2)
--- NOTE | 2023-07-10 10:00 | RAD REPORT ---
EXAM DESCRIPTION: CT - Head Brain W/Wo Con - 07/10/2023 9:47 am CLINICAL HISTORY: HEADACHE Headache, drowsiness COMPARISON: No comparisons TECHNIQUE: All CT scans are performed using dose optimization technique as appropriate and may inclu de automated exposure control or mA/KV adjustment according to patient size. FINDINGS: No intracranial hemorrhage, hydrocephalus or extra-axial fluid collection.No areas of brai n edema or evidence of midline shift. The paranasal sinuses and mastoids are clear. The calvarium is intact. Post-contrast sequences abnorm al areas of enhancement. IMPRESSION: Unremarkable study.
[2023-07-10 10:05] LABS: Albumin 3.6 g/dL (3.4-5.0); Albumin/Globulin Ratio 0.9 (1.1-1.8); Anion Gap 8.1 mEq/L (5.0-15.0); Bilirubin Total 0.5 mg/dL (0.2-1.0); C-Reactive Protein 8.38 mg/L (<3.00); Globulin 4.2 g/dL (2.3-3.5); Potassium 4.1 mEq/L (3.5-5.1); Protein, Total 7.8 g/dL (6.4-8.2)
[2023-07-10 10:30] LABS: White Blood Cell Scan OK (OK)
[2023-07-10 10:31] LABS: Anisocytosis 2+; Blood Morphology Comment NOTED (NOT SEEN); Hypochromasia 1+; Ovalocytes 1+; Platelet Estimate ADEQ; Target Cells 1+
--- NOTE | 2023-07-10 11:55 | ER ---
Nurse's Notes [facility] Name: Krysten Love Age: 58 yrs Sex: Female : 1965 Arrival Date: 07/10/2023 Time: 08:33 Bed 13 Private MD: Radha Best Diagnosis: Headache, likely temporal arteritis Presentation: 07/09 08:42 Chief complaint: Patient states: VINSON since Friday with dizziness. No fever. Seeing Dr. lisa Best for same symptoms, has CT scheduled for Friday. Her doctor told her if anything changes, go to ED. Coronavirus screen: Client denies travel out of the [place] in the last 14 days. At this time, the client does not indicate any symptoms associated with coronavirus-19. Ebola Screen: Patient denies travel to an Ebola-affected area in the 21 days before illness onset. Initial Sepsis Screen: Does the patient meet any 2 criteria? No. Patient's initial sepsis screen is negative. Does the patient have a suspected source of infection? No. Patient's initial sepsis screen is negative. Risk Assessment: Do you want to hurt yourself or someone else? Patient reports no desire to harm self or others. Onset of symptoms was July 07, 2023. 08:42 Method Of Arrival: Ambulatory ll1 08:42 Acuity: SAMIR 3 ll1 Triage Assessment: 08:44 General: Appears uncomfortable, Behavior is calm, cooperative, appropriate for age. ll1 Pain: Complains of pain in Head Pain currently is 8 out of 10 on a pain scale. Quality of pain is described as aching, throbbing. Neuro: Reports dizziness, headache. Historical: - Allergies: 08:42 PENICILLINS; ll1 08:42 Sulfa (Sulfonamide Antibiotics); ll1 - PMHx: 08:42 Hypothyroidism; Back pain; ll1 - PSHx: 08:42 hernia repair (Back pain); ll1 - Immunization history:: Adult Immunizations up to date. - Infectious Disease History:: Denies. - Social history:: Smoking status: Patient denies any tobacco usage or history of. - Family history:: not pertinent. Screenin:09 [facility] ED Fall Risk Assessment (Adult) History of falling in the last 3 months, nj1 including since admission No falls in past 3 months (0 pts) Confusion or Disorientation No (0 pts) Intoxicated or Sedated No (0 pts) Impaired Gait No (0 pts) Mobility Assist Device Used No (0 pt) Altered Elimination No (0 pt) Score/Fall Risk Level 0 - 2 = Low Risk Oriented to surroundings, Maintained a safe environment, Hourly rounding (assess needs \\T\\ fall precautionary measures) done. Abuse screen: Denies threats or abuse. Denies injuries from another. Nutritional screening: No deficits noted. Tuberculosis screening: No symptoms or risk factors identified. Assessment: 08:53 Reassessment: Patient asked if she could take her prescribed Gabapentin. Informed to ll1 wait to see ER physician before taking, verbalized understanding. 09:00 General: Appears in no apparent distress. uncomfortable, Behavior is calm, cooperative, nj1 appropriate for age. Pain: Complains of pain in right eye and right cheek and back of head Pain currently is 8 out of 10 on a pain scale. Pain began a week ago Is intermittent, Aggravated by repositioning, "bending over and looking to the right". 09:00 Neuro: Level of Consciousness is awake, alert, obeys commands, Oriented to person, nj1 place, time, situation, Speech is normal, Facial symmetry appears normal. Neuro: Reports headache in right parietal area, occipital area. Cardiovascular: Patient's skin is warm and dry. Respiratory: Airway is patent Respiratory effort is even, unlabored. EENT: Reports pain Denies photophobia. 10:05 Reassessment: Patient appears in no apparent distress at this time. Patient and/or nj1 family updated on plan of care and expected duration. Pain level reassessed. Patient is alert, oriented x 3, equal unlabored respirations, skin warm/dry/pink. Patient states feeling better. Patient states symptoms have improved. 11:13 Reassessment: Patient appears in no apparent distress at this time. Patient and/or nj1 family updated on plan of care and expected duration. Pain level reassessed. Patient is alert, oriented x 3, equal unlabored respirations, skin warm/dry/pink. Patient states feeling better. Patient states symptoms have improved. 12:12 Reassessment: Patient appears in no apparent distress at this time. Patient is alert, nj1 oriented x 3, equal unlabored respirations, skin warm/dry/pink. Vital Signs: 08:42 BP 159 / 108; Pulse 88; Resp 18; Pulse Ox 96% on R/A; Weight 86.18 kg; Height 5 ft. 3 ll1 in. ; Pain 8/10; 09:00 BP 148 / 98; Pulse 77; Resp 16; Pulse Ox 96% ; Pain 8/10; nj1 10:05 BP 138 / 92; Pulse 65; Resp 16; Pulse Ox 93% on R/A; Pain 1/10; nj1 11:13 BP 133 / 72; Pulse 62; Resp 16; Pulse Ox 93% ; Pain 1/10; nj1 12:00 BP 126 / 72; Pulse 65; Resp 16; Pulse Ox 93% on R/A; nj1 08:42 Body Mass Index 33.66 (86.18 kg, 160.02 cm) ll1 08:42 Pain Scale: Adult ll1 09:00 Pain Scale: Adult nj1 10:05 Pain Scale: Adult nj1 11:13 Pain Scale: Adult nj1 ED Course: 08:36 Patient arrived in ED. mr 08:36 Radha Best is Private Physician. mr 08:43 Triage completed. ll1 08:44 Arm band placed on Patient placed in an exam room, on a stretcher. ll1 08:56 Tia Montiel, YADIRA is Primary Nurse. nj1 09:00 Sebastian Kat MD is Attending Physician. rt 09:10 Patient has correct armband on for positive identification. Bed in low position. Call nj1 light in reach. Side rails up X 1. Adult w/ patient. Provided Education on: call light, fall precautions. 09:11 Client placed on continuous cardiac and pulse oximetry monitoring. NIBP monitoring nj1 applied. 09:35 Inserted saline lock: 22 gauge in right hand, using aseptic technique. Blood collected. nj1 09:48 CT Head Brain w/wo Con In Process Unspecified. EDMS 11:53 Jason Hebert MD is Referral Physician. rt 12:12 No provider procedures requiring assistance completed. IV discontinued, intact, nj1 bleeding controlled. Administered Medications: 09:28 Not Given (Pt refused, took her own gabapentinn): [id number] mg PO once nj1 09:35 Drug: diphenhydrAMINE IVP 25 mg IVP once Route: IVP; Site: right hand; nj1 09:36 Drug: MethylPrednisoLONE IVP 125 mg IVP once Route: IVP; Site: right hand; nj1 09:37 Drug: metoCLOPramide IVP 10 mg IVP once; over 1 to 2 minutes Route: IVP; Site: right nj1 hand; Medication: 12:12 VIS not applicable for this client. nj1 Outcome: 11:54 Discharge ordered by . rt 12:12 Discharged to home ambulatory, nj1 12:12 Condition: stable 12:12 Discharge instructions given to patient, Instructed on discharge instructions, follow up and referral plans. medication usage, Demonstrated understanding of instructions, follow-up care, medications, Prescriptions given X 2, 12:13 Patient left the ED. nj1 Signatures: Dispatcher [employer] EDMS Bia Hernandes, Reg Reg mr Sudha Brody RN RN ll1 Sebastian Kat MD MD rt Tia Montiel RN RN nj1 Corrections: (The following items were deleted from the chart) 08:47 08:42 Chief complaint: Patient states: VINSON since Friday with dizziness. 1 1 09:28 09:28 Gabapentin PO 300 mg PO nj1 nj1
--- NOTE | 2023-07-10 11:55 | EDPHYS ---
Physician Documentation [facility] Name: Krysten Love Age: 58 yrs Sex: Female : 1965 Arrival Date: 07/10/2023 Time: 08:33 Bed 13 Private MD: Radha Best ED Physician Sebastian Kat HPI: 07/09 09:20 This 58 yrs old Female presents to ER via Ambulatory with complaints of Dizziness, Head rt pain. 09:20 . rt 09:20 Patient presents to the ED with headache, right eye pain. This started on Friday, rt patient states that she felt a pop behind her eye. States that she went to her primary care's office and subsequently to an 911 dispatcher. Had testing done, reportedly had pressures checked but does not know the results. States that there was concern for temporal arteritis. Scheduled have CT scan done tomorrow but told to come to the ED if her symptoms worsen. Patient states that he felt another pop in her eye with worsening pains today. That worsening pain has improved somewhat, however, she still has continued headache, eye pain. Pain is worse with movement of her eyes, denies photosensitivity. Denies other acute complaints, symptoms are moderate severity, no other aggravating or elevating factors.. Historical: - Allergies: 08:42 PENICILLINS; ll1 08:42 Sulfa (Sulfonamide Antibiotics); ll1 - PMHx: 08:42 Hypothyroidism; Back pain; ll1 - PSHx: 08:42 hernia repair (Back pain); ll1 - Immunization history:: Adult Immunizations up to date. - Infectious Disease History:: Denies. - Social history:: Smoking status: Patient denies any tobacco usage or history of. - Family history:: not pertinent. ROS: 09:20 Constitutional: Negative for fever, chills, and weight loss, Cardiovascular: Negative rt for chest pain, palpitations, and edema, Respiratory: Negative for shortness of breath, cough, wheezing, and pleuritic chest pain, Abdomen/GI: Negative for abdominal pain, nausea, vomiting, diarrhea, and constipation, MS/Extremity: Negative for injury and deformity, Skin: Negative for injury, rash, and discoloration, 09:20 Eyes: Positive for pain, Negative for redness, 09:20 Neuro: Positive for dizziness, headache, Exam: 09:20 Constitutional: This is a well developed, well nourished patient who is awake, alert, rt and in no acute distress. Head/Face: Normocephalic, atraumatic. Eyes: Pupils equal round and reactive to light, extra-ocular motions intact. Lids and lashes normal. Conjunctiva and sclera are non-icteric and not injected. Cornea within normal limits. Periorbital areas with no swelling, redness, or edema. Chest/axilla: Normal chest wall appearance and motion. Nontender with no deformity. No lesions are appreciated. Cardiovascular: Regular rate and rhythm with a normal S1 and S2. No gallops, murmurs, or rubs. Normal PMI, no JVD. No pulse deficits. Respiratory: Lungs have equal breath sounds bilaterally, clear to auscultation and percussion. No rales, rhonchi or wheezes noted. No increased work of breathing, no retractions or nasal flaring. Abdomen/GI: Soft, non-tender, with normal bowel sounds. No distension or tympany. No guarding or rebound. No evidence of tenderness throughout. Skin: Warm, dry with normal turgor. Normal color with no rashes, no lesions, and no evidence of cellulitis. MS/ Extremity: Pulses equal, no cyanosis. Neurovascular intact. Full, normal range of motion. Neuro: Awake and alert, GCS 15, oriented to person, place, time, and situation. Cranial nerves II-XII grossly intact. Motor strength 5/5 in all extremities. Sensory grossly intact. Cerebellar exam normal. Normal gait. Psych: Awake, alert, with orientation to person, place and time. Behavior, mood, and affect are within normal limits. 09:20 Head/face: Tenderness to right nondenominational, no tenderness over left nondenominational artery. Vital Signs: 08:42 BP 159 / 108; Pulse 88; Resp 18; Pulse Ox 96% on R/A; Weight 86.18 kg; Height 5 ft. 3 ll1 in. ; Pain 8/10; 09:00 BP 148 / 98; Pulse 77; Resp 16; Pulse Ox 96% ; Pain 8/10; nj1 10:05 BP 138 / 92; Pulse 65; Resp 16; Pulse Ox 93% on R/A; Pain 1/10; nj1 11:13 BP 133 / 72; Pulse 62; Resp 16; Pulse Ox 93% ; Pain /; nj1 12:00 BP 126 / 72; Pulse 65; Resp 16; Pulse Ox 93% on R/A; nj1 08:42 Body Mass Index 33.66 (86.18 kg, 160.02 cm) ll1 08:42 Pain Scale: Adult ll1 09:00 Pain Scale: Adult nj1 10:05 Pain Scale: Adult nj1 11:13 Pain Scale: Adult nj1 MDM: 09:03 Patient medically screened. rt 07/09 09:16 Order name: CBC with Diff; Complete Time: 10:33 rt 07/09 09:16 Order name: CMP; Complete Time: 10:33 rt 07/09 09:16 Order name: CRP; Complete Time: 10:33 rt 07/09 09:58 Order name: CBC Smear Scan; Complete Time: 10:33 EDMS 07/09 09:16 Order name: CT Head Brain w/wo Con; Complete Time: 10:01 rt Administered Medications: 09:28 Not Given (Pt refused, took her own gabapentinn): [id number] mg PO once nj1 09:35 Drug: diphenhydrAMINE IVP 25 mg IVP once Route: IVP; Site: right hand; nj1 09:36 Drug: MethylPrednisoLONE IVP 125 mg IVP once Route: IVP; Site: right hand; nj1 09:37 Drug: metoCLOPramide IVP 10 mg IVP once; over 1 to 2 minutes Route: IVP; Site: right nj1 hand; Disposition Summary: 07/10/23 11:54 Discharge Ordered Notes: Location: Home rt Problem: new rt Symptoms: have improved rt Condition: Stable rt Diagnosis - Headache, likely temporal arteritis rt Followup: rt - With: Jason Hebert MD - When: Tomorrow - Reason: Discharge Instructions: - Discharge Summary Sheet rt - Temporal Artery Biopsy rt - Temporal Arteritis rt Forms: - Medication Reconciliation Form rt - Antibiotic Education rt - Prescription Opioid Use rt - Patient Portal Instructions rt - Leadership Thank You Letter rt Prescriptions: - Prednisone 20 mg Oral Tablet - take 3 tablets ORAL route once daily for 5 days; 15 tablet; Refills: 0, Product rt Selection Permitted - Tramadol 50 mg Oral Tablet - take 1 tablet ORAL route every 8 hours as needed; 12 tablet; Refills: 0, rt Product Selection Permitted Signatures: Dispatcher [employer] EDMS Sudha Brody, RN RN ll1 Sebastian Kat MD MD rt Tia Montiel RN RN nj1 Corrections: (The following items were deleted from the chart) :17 09:17 Head Brain W/ Wo [id number] ordered. EDMS EDMS
[2023-07-10 12:46] VITALS: BP 126/72; O2SAT 93
== END 2023-07-10 12:13 | disposition home or self-care (01) ==
LOC: ER 08:33
DX: R51.9 Headache, unspecified (principal); R42 Dizziness and giddiness; E03.9 Hypothyroidism, unspecified; Z88.0 Allergy status to penicillin; Z88.2 Allergy status to sulfonamides
CPT/HCPCS: 85025; 36415; 80053; 86140; 70470; Q9967; J2765; J1200; J2919